=== PATIENT | female | born 1965 | race African-American/Black ===

== ENCOUNTER 2020-04-04 10:17 | Outpatient (CLI) | payer OTHER, SELFPAY ==
[2020-04-04 10:51] LABS: Hematocrit 38.9 % (37.0-47.0); Hemoglobin 13.2 g/dL (12.0-15.0); Mean Corpuscular HGB Conc 33.9 g/dl (32-36); Mean Corpuscular Hemoglobin 27.7 pg (26-34); Mean Corpuscular Volume 81.6 fl (80-100); Platelet Count Result 226 k/mm3 (150-375); Red Blood Count 4.77 M/mm3 (4.2-5.4); Red Cell Distribution Width 13.2 % (11.5-14.5); White Blood Count 5.9 K/mm3 (4.5-10.0)
[2020-04-04 10:53] LABS: Add Urine Microscopic? NO; Appearance Urine Clear (Clear); Bilirubin Urine Negative (Negative); Blood Urine Negative (Negative); Color Urine Colorless (Yellow); Glucose Urine UA Negative (Negative); Ketones Urine Negative (Negative); Leukocyte Esterase Ur Negative LEU/UL (NEGATIVE); Nitrate Urine Negative (Negative); Protein Urine Negative (Negative); Specific Grav Ur 1.006 (1.001-1.035); Urobilinogen Urine Negative mg/dL (<2.0)
[2020-04-04 10:59] LABS: Hemoglobin A1C 5.9 % (<5.7)
[2020-04-04 11:03] LABS: Alanine Aminotransferase 15 U/L (4-35); Albumin Level 4.6 g/dL (3.5-5.1); Alkaline Phosphatase 76 U/L (38-126); Aspartate Amino Transferase 21 U/L (14-36); Bilirubin,Total 0.4 mg/dL (0.2-1.3); Blood Urea Nitrogen 9 mg/dL (7-17); Calcium 9.5 mg/dL (8.4-10.2); Carbon Dioxide 27 mmol/L (22-30); Chloride 104 mmol/L (98-107); Cholesterol 217 mg/dL (0-200); Estimated Glomerular Filt Rate > 60; Glucose 107 mg/dL (65-105); HDL Direct 47 mg/dL; Potassium 3.8 mmol/L (3.4-5.0); Sodium 138 mmol/L (137-145); Triglycerides 88 mg/dL (<150)
[2020-04-04 11:14] LABS: LDL Cholesterol Direct 126 mg/dL
[2020-04-04 11:18] LABS: Erythrocyte Sedimentation Rate 24 mm/hr (0-20)
[2020-04-04 11:31] LABS: Creatinine Urine 21.7 mg/dL
[2020-04-04 11:34] LABS: MALB Creatinine Ratio 86.6 mg/g (0-30); Microalbumin Urine Random 18.8 mg/L (0-16.7)
[2020-04-04 11:45] LABS: Vitamin D 25 Hydroxy 31.8 ng/mL
== END 2020-04-04 10:18 | disposition home or self-care (01) ==
PROVIDERS: PCP Internal Medicine; Visit Provider Internal Medicine
DX: M19.90 Unspecified osteoarthritis, unspecified site (principal); J45.909 Unspecified asthma, uncomplicated; E11.9 Type 2 diabetes mellitus without complications; E78.00 Pure hypercholesterolemia, unspecified; I10 Essential (primary) hypertension; R06.00 Dyspnea, unspecified; E66.9 Obesity, unspecified
CPT/HCPCS: 36415; 80053; 80061; 81003; 82043; 82306; 82607; 83036; 84443; 85027; 85652

== ENCOUNTER 2020-05-18 11:46 | Observation (INO) | payer OTHER, SELFPAY ==
[2020-05-18] VITALS (13 sets, daily range): BP systolic 130–177; BP diastolic 64–110; PULSE 76–96; RESP 20–24; TEMP 35.8–36.3; O2SAT 98–100; BMI 33.3
--- NOTE | ~2020-05-18 | CT_ITS ---
EXAMINATION: CTA chest PE protocol DATE: 05/19/2020 09:15 INDICATION: Shortness of breath. High probability for pulmonary embolism and prior VQ scan. Elevated d-dimer. TECHNIQUE: Computed tomography (CT) pulmonary angiogram of the chest was performed with 100 mL Omnipa que-350 intravenous contrast. Additional 3D reconstructions utilizing coronal maximum intensity proje ction (MIP) were performed. Automated exposure control and iterative reconstruction technique were em ployed. The dose-length product was 407.61 mGy-cm. COMPARISON: None FINDINGS: Excellent contrast opacification of the pulmonary arteries. There is mild streak artifact from dense contrast in the superior vena cava and right atrium. Mild scattered respiratory motion artifact. Pulm onary embolism with complete occlusion of the right upper and middle lobar pulmonary arteries. Additi onal small pulmonary arterial filling defect in the superior segmental pulmonary artery of the left l ower lobe. Discoid atelectasis/scarring along the right minor fissure. There is some groundglass opac ity and mild reticulonodular opacities in the right upper lobe and inferior aspect of the right middl e lobe and lingula. There are additional scattered small pulmonary nodules including several <5 mm gr oundglass and solid nodules in the superior segment of the right upper lobe and a larger 6 mm nodule at the junction of the lingula and anterior segment of the left upper lobe. 6 mm triangle intrafissur al lymph node along the cephalad aspect of the left major fissure. No pleural effusion or pneumothora x. Heart size is normal. No leftward bowing of the ventricular septum to suggest right heart strain. No pericardial effusion. Thoracic aorta is normal in caliber with no dissection. Calcified right kathy r and mediastinal lymph nodes consistent with old granulomatous disease. Mild bilateral hilar lymphad enopathy which could be reactive. Mild thoracic spondylosis. IMPRESSION: 1. Pulmonary embolism with occlusion of the right upper and middle lobar pulmonary arteries and nonoc clusive thrombus in the superior segmental pulmonary artery of the left lower lobe. 2. Several small pulmonary nodules and scattered regions with reticulonodular opacities which could b e infectious/inflammatory in etiology or malignant including lymphangitic carcinomatosis. Recommend 3 month follow-up chest CT. 3. Mild bilateral hilar lymphadenopathy which similarly could be either reactive or metastatic. Reviewed, dictated and finalized at location A. IMPRESSION: 1. Pulmonary embolism with occlusion of the right upper and middle lobar pulmon jose arteries and nonocclusive thrombus in the superior segmental pulmonary sharon ry of the left lower lobe. 2. Several small pulmonary nodules and scattered regions with reticulonodular o pacities which could be infectious/inflammatory in etiology or malignant includ ing lymphangitic carcinomatosis. Recommend 3 month follow-up chest CT. 3. Mild bilateral hilar lymphadenopathy which similarly could be either reactiv e or metastatic.
--- NOTE | ~2020-05-18 | US_ITS ---
US venous doppler [facility] DATE: 05/19/2020 09:26 INDICATION: Elevated d-dimer TECHNIQUE: Real-time and color flow imaging and Doppler analysis of the veins of both lower extremiti es COMPARISON: 06/20/2006 venous duplex examination of the right lower extremity FINDINGS: The greater saphenous veins are patent. There is spontaneous and phasic flow and normal aug mentation and color flow signal and normal compression of the deep veins of both lower extremities. IMPRESSION: No evidence of deep venous thrombosis of the lower extremities Reviewed, dictated and finalized at [facility]. Reviewed, dictated and finalized at location B.
--- NOTE | ~2020-05-18 | XR_ITS ---
EXAMINATION: XR chest 2V DATE: 05/18/2020 12:25 INDICATION: Shortness of breath TECHNIQUE: PA and lateral views of the chest were obtained. COMPARISON: None FINDINGS: Mild perihilar and bibasilar opacities and bronchial wall thickening. No pleural effusion or pneumoth orax. Arch size is normal. Increased prominence of the kathy which could be related to enlargement of the central pulmonary arteries or lymphadenopathy. Visualized bones and soft tissues are unremarkable . IMPRESSION: 1. Mild perihilar and basilar opacities with bronchial wall thickening which could be related to mild pulmonary edema or bronchitis/pneumonia. 2. Prominent kathy which could be related to enlargement of the central pulmonary arteries in the sett ing of pulmonary arterial hypertension or lymphadenopathy likely reactive. Reviewed, dictated and finalized at location A. IMPRESSION: 1. Mild perihilar and basilar opacities with bronchial wall thickening which co uld be related to mild pulmonary edema or bronchitis/pneumonia. 2. Prominent kathy which could be related to enlargement of the central pulmonar y arteries in the setting of pulmonary arterial hypertension or lymphadenopathy likely reactive.
--- NOTE | ~2020-05-18 | NM_ITS ---
NM pulmonary perfusion DATE: 05/18/2020 16:11 INDICATION: Shortness of breath TECHNIQUE: Standard views following intravenous injection of 5.5 mCi 90 9M technetium MAA COMPARISON: 05/18/2020 chest FINDINGS: There are unmatched perfusion defects of the right upper lobe, left upper lobe and superior segment of the right lower lobe. There is high probability of pulmonary embolus. IMPRESSION: High probability of pulmonary embolism On 05/18/[address] Batista telephoned the report of high probability of pulmonary embolism to ER physician Dr. Bruno. Reviewed, dictated and finalized at [facility]. Reviewed, dictated and finalized at location A.
--- NOTE | 2020-05-18 11:56 | ECG_ITS ---
Measurements Intervals [place] Rate: 83 P: 61 ME: 172 QRS: 48 QRSD: 79 T: 76 QT: 349 QTc: 410 Interpretive Statements SINUS RHYTHM NORMAL ECG Electronically Signed On 05-18-2020 12:59:03 CDT by Parish Finney D.O.
[2020-05-18 12:10] LABS: Basophils Percent Auto 0.3 % (0.2-1.2); Eosinophils Absolute Auto 0.1 K/mm3 (0-0.3); Eosinophils Percent Auto 1.4 % (0-4.4); Hematocrit 36.6 % (37.0-47.0); Hemoglobin 12.2 g/dL (12.0-15.0); Immature Granulocyte Absolute 0.01 K/mm3 (0.00-0.031); Immature Granulocyte Percent A 0.2 % (0-0.5); Lymphocytes Absolute Auto 1.48 K/mm3 (0.9-3.2); Lymphocytes Percent Auto 23.2 % (18.3-44.2); Mean Corpuscular HGB Conc 33.3 g/dl (32-36); Mean Corpuscular Hemoglobin 27.9 pg (26-34); Mean Corpuscular Volume 83.6 fl (80-100); Mean Platelet Volume 11.3 fl (7.4-10.4); Monocytes Absolute Auto 0.4 K/mm3 (0.1-0.6); Monocytes Percent Auto 5.8 % (2.6-8.5); Neutrophils Absolute Auto 4.4 K/mm3 (1.3-6.7); Neutrophils Percent Auto 69.1 % (45.5-73.1); Platelet Count Result 216 k/mm3 (150-375); Red Blood Count 4.38 M/mm3 (4.2-5.4); Red Cell Distribution Width 13.6 % (11.5-14.5); White Blood Count 6.4 K/mm3 (4.5-10.0)
[2020-05-18 12:23] LABS: Blood Urea Nitrogen 13 mg/dL (7-17); Calcium 9.3 mg/dL (8.4-10.2); Carbon Dioxide 26 mmol/L (22-30); Chloride 106 mmol/L (98-107); Estimated CRCL calculation 74 ml/min; Estimated Glomerular Filt Rate > 60; Glucose 122 mg/dL (65-105); Potassium 4.1 mmol/L (3.4-5.0); Sodium 140 mmol/L (137-145)
[2020-05-18] MEDS: ALBUTEROL SULFATE NEB 2.5 MG/0.5 ML INH 5 MG INHALATION (12:38)
--- NOTE | 2020-05-18 13:30 | ED.GENADULT ---
HPI - General Adult General Chief complaint: Shortness of Breath/Dyspnea Stated complaint: SOB Time Seen by Provider: 05/18/20 12:34 History of Present Illness HPI narrative: Patient is a 54 y/o female complaining of mild shortness of breath for 2 days. She states that she has COPD. She used her Nebulizer, which did not help. She also has chest pain, cough with white phlegm. She has no fever or chills. Additionally, she developed vomiting after arrival in ED. Related Data Home Medications Medication Instructions Recorded Confirmed acyclovir 400 mg PO DAILY 05/18/20 05/18/20 gabapentin [Neurontin] 300 mg PO TID 05/18/20 05/18/20 hydrochlorothiazide 25 mg PO DAILY 05/18/20 05/18/20 hydrocodone-acetaminophen [[place]] 1 tablet PO Q8H PRN 05/18/20 05/18/20 losartan 25 mg PO DAILY 05/18/20 05/18/20 metformin 500 mg PO DAILY 05/18/20 05/18/20 metformin [Glucophage XR] 1,000 mg PO DAILY 05/18/20 05/18/20 zolpidem 10 mg PO HS PRN 05/18/20 05/18/20 Allergies Allergy/AdvReac Type Severity Reaction Status Date / Time iohexol Allergy Rash Verified 05/18/20 11:55 [From contrast - CT, X-RAY] levofloxacin [From Levaquin] Allergy Unknown Verified 05/18/20 11:55 Jfsfwma-Nwd-Hga Reductase Allergy Unknown Verified 05/18/20 11:55 Inhibitor tramadol Allergy Unknown Verified 05/18/20 11:55 Review of Systems Constitutional: Constitutional: Denies chills, Denies fever(s), Denies headache(s) and Denies weakness Eyes: Eyes: Denies blurry vision ENT: Denies headache(s) and Denies neck pain Cardiovascular: Cardiovascular: Reports chest pain and Reports dyspnea Respiratory: Respiratory: Denies cough and Reports dyspnea Gastrointestinal: Gastrointestinal: Denies abdominal pain, Denies diarrhea, Reports nausea and Reports vomiting Genitourinary: Genitourinary: Denies hematuria and Denies dysuria Musculoskeletal: Musculoskeletal: Denies back pain and Denies neck pain Neurologic: Denies headache(s) and Denies weakness [facility] Past Medical History Medical History (Updated 05/18/20 @ 19:42 by America Bruno MD) DM2 (diabetes mellitus, type 2) History of pulmonary embolism She was on Coumadin for 6 months. Hypertension Surgical History Surgical History (Updated 05/18/20 @ 17:22 by Florinda Alcazar NP) H/O: hysterectomy History of section, classical X3 Family History Family History Father Pulmonary embolism Hypertension Mother Pulmonary embolism Hypertension Social History Social History (Updated 05/18/20 @ 17:23 by Florinda Alcazar NP) Social History: The patient lives with her partner. She has had 3 children. She is disabled. She denies any marijuana or substance abuse. The patient is every day smoker. No alcohol use. She desires to have her partner as a durable power employment law attorney for healthcare. The patient desires to be a full code. Years smoked: 8 Smoking status: Current every day smoker Tobacco type: cigarettes Alcohol intake: current Drinks per week: 2 Substance use: never Gender identity (if verbalized by the patient): Female Spiritual care concerns: No Exam Const: General: no acute distress and well developed Orientation/consciousness: oriented to person, oriented to place, oriented to time and patient oriented x3 HENMT: Head: normocephalic Ears: external ears normal General nose exam: Normal external nose present Eyes: General: appearance normal, both eyes and all related structures Conjunctivae: conjunctivae normal Neck: Neck: normal visual inspection and full ROM Chest: Chest palpation & inspection: normal inspection of the chest and no tenderness Resp: Effort & Inspection: normal respiratory effort Auscultation: clear to auscultation bilaterally Cardio: Rate: regular rate Rhythm: regular rhythm GI: GI Palp: No abdominal tenderness and Yes Soft to palpation Skin: General skin exam: normal
[2020-05-18 13:59] LABS: NT Pro B Type Natriuretic Pept 56 PG/ML (5-100)
[2020-05-18] MEDS: ONDANSETRON INJ 4 MG/2 ML VIAL IV PUSH (14:16)
[2020-05-18] MEDS: KETOROLAC 30 MG/ML VIAL (*BKC) (14:16)
[2020-05-18 14:23] LABS: D Dimer 1.67 ug/mL (<0.48)
[2020-05-18 14:35] LABS: Troponin I < 0.012 ng/mL (0.000-0.034)
--- NOTE | 2020-05-18 16:33 | ADMGEN ---
This patient, Dolly Lucas, was admitted to Intensive Care Unit-3. Patient/family oriented to hospital policies and general routines including ID bracelet, bed and alarms, visiting hours, pain management, procedures, bathroom and other care routines, personal items, smoking policy, room service/diet, and visiting hours. Valuables list has been completed. Information on how to activate the Rapid Response Team has been discussed. Patient/Family are encouraged to report perceived risks to care and to ask questions if they do not understand what they are told or what they should do.
--- NOTE | 2020-05-18 17:12 | PM.IMHP ---
H&P: HPI History of Present Illness Chief complaint: shortness of breath,chest pain Narrative: Dolly Lucas is a 54 year old female who has been feeling ill for at least 3 days. The patient has been having a cough that is dry and nonproductive. She has a history of asthma and has inhalers at home. She is also diabetic and has high blood pressure. The patient denies any fever or chills. She has had a past history of having bilateral PEs and was on Coumadin for 6 months at 1 time. Both of her parents from having a PE. Initially the patient did not want to stay in the hospital when I saw her in the emergency room. We reviewed all of her results and I explained the importance of her staying Hospital. Her and her partner were agreeable to the patient staying here. Patient has an allergy to contrast dye. So V/Q scan was performed which was read as a high probability for PE. Patient's D-dimer is 1.67. The patient stated that she previously had bronchitis and was given a Z-Mack and she is on her last day of the Z-Mack. He has been wheezing and short of breath. She did not take anything other than what was prescribed to her for this condition. Blood pressure remains high today blood pressure reading of 130/110. Glucose was 122 today. Last A1c was noted to be 5.92 months ago. No CRP was obtained. Patient was tested for COVID-19. She was placed in isolation. As mild perihilar and basilar opacities with bronchial wall thickening which could be related to mild pulmonary edema or bronchitis/pneumonia. Prominent Torrie which could be related to enlargement of the central pulmonary arteries in the setting of pulmonary artery hypertension or lymphadenopathy likely reactive. Patient was given subcu Lovenox therapeutic dose x1 in the emergency room. She is also given a nebulizer treatment in the emergency room an Ativan x1. She was given Zofran for nausea. She was given ketorolac issues complaining of having some left rib pain with coughing and deep breath. Patient is admitted to ICU. Date of service 05/18/2020 Review of Systems Review of Systems: All systems reviewed & are unremarkable except as noted in HPI and below Constitutional: Constitutional: Reports as per HPI and Reports no additional constitutional complaints Eyes: Eyes: Reports as per HPI and Reports no additional eye complaints ENT: Reports system reviewed and no additional complaints, except as documented and Reports Normal hearing present Cardiovascular: Cardiovascular: Reports no additional cardiovascular complaints Respiratory: Respiratory: Reports no additional respiratory complaints and Reports no additional respiratory complaints Gastrointestinal: Gastrointestinal: Reports as per HPI and Reports no additional gastrointestinal complaints Musculoskeletal: Musculoskeletal: Reports no additional musculoskeletal complaints Integumentary/Breasts: Skin/Breast: Reports system reviewed and no additional complaints, except as docu and Reports as per HPI Neurologic: Reports system reviewed and no additional complaints, except as documented, Reports as per HPI and Reports Normal hearing present Psychiatric: Psychiatric: Reports no additional psychiatric complaints and Reports as per HPI Endocrine: Endocrine: Reports no additional endocrine complaints Hematologic/Lymphatic: Hematologic/Lymphatic: Reports no additional hematologic/lymphatic complaints Allergic/Immunologic: Allergic/Immunologic: Reports no additional allergic/immunologic complaints [facility] Past Medical History Medical History (Updated 05/18/20 @ 17:22 by Florinda Alcazar NP) DM2 (diabetes mellitus, type 2) History of pulmonary embolism She was on Coumadin for 6 months. Hypertension Surgical History Surgical History (Updated 05/18/20 @ 17:22 by Florinda Alcazar NP) H/O: hysterectomy History of section, classical X3 Family History Family History (Reviewed 05/18/20 @ 17:22 by Florinda Clemente
[2020-05-18] MEDS: ENOXAPARIN 80 MG/0.8 ML SYRINGE 88 MG SUB-Q (17:37)
[2020-05-18 17:41] LABS: INR 0.9; Prothrombin Time 12.2 Seconds (11.1-14.7)
[2020-05-18 17:43] LABS: Partial Thromboplastin Time 29.2 SECONDS (22.3-36.8)
[2020-05-18] MEDS: hydrALAZINE HCL 20 MG/ML VIAL 10 MG IV PUSH (17:46)
[2020-05-18 17:56] LABS: Troponin I < 0.012 ng/mL (0.000-0.034)
[2020-05-18 18:28] LABS: Glucose Point of Care 78 (65-105)
[2020-05-18] MEDS: ALBUTEROL SULFATE (*SP) INHALER 1 PUFF (20:13)
[2020-05-18] MEDS: predniSONE 40 MG, predniSONE 10 MG 50 MG PO (20:14)
[2020-05-18 20:29] LABS: Glucose Point of Care 82 (65-105)
[2020-05-18 20:59] LABS: Troponin I < 0.012 ng/mL (0.000-0.034)
[2020-05-18] MEDS: ZOLPIDEM TARTRATE 5 MG TABLET 10 MG PO (21:15)
[2020-05-19] VITALS (16 sets, daily range): BP systolic 118–162; BP diastolic 66–105; PULSE 76–98; RESP 12–27; TEMP 36–36.4; O2SAT 96–100
[2020-05-19] MEDS: hydrALAZINE HCL 20 MG/ML VIAL 10 MG IV PUSH (00:11)
[2020-05-19] MEDS: predniSONE 40 MG, predniSONE 10 MG 50 MG PO ×2 (01:32→08:12)
[2020-05-19] MEDS: ENOXAPARIN 100 MG/ML SYRINGE 85 MG SUB-Q ×2 (05:30→17:32)
[2020-05-19 06:03] LABS: Basophils Percent Auto 0.1 % (0.2-1.2); Hematocrit 38.3 % (37.0-47.0); Hemoglobin 12.5 g/dL (12.0-15.0); Immature Granulocyte Absolute 0.05 K/mm3 (0.00-0.031); Immature Granulocyte Percent A 0.5 % (0-0.5); Lymphocytes Absolute Auto 0.85 K/mm3 (0.9-3.2); Lymphocytes Percent Auto 8.8 % (18.3-44.2); Mean Corpuscular HGB Conc 32.6 g/dl (32-36); Mean Corpuscular Hemoglobin 27.3 pg (26-34); Mean Corpuscular Volume 83.6 fl (80-100); Mean Platelet Volume 11.6 fl (7.4-10.4); Monocytes Absolute Auto 0.1 K/mm3 (0.1-0.6); Monocytes Percent Auto 0.5 % (2.6-8.5); Neutrophils Absolute Auto 8.7 K/mm3 (1.3-6.7); Neutrophils Percent Auto 90.1 % (45.5-73.1); Platelet Count Result 233 k/mm3 (150-375); Red Blood Count 4.58 M/mm3 (4.2-5.4); Red Cell Distribution Width 13.2 % (11.5-14.5); White Blood Count 9.7 K/mm3 (4.5-10.0)
[2020-05-19 06:25] LABS: Lactic Acid 2.2 mmol/L (0.7-2.1)
[2020-05-19 06:26] LABS: Alanine Aminotransferase 20 U/L (4-35); Albumin Level 4.3 g/dL (3.5-5.1); Alkaline Phosphatase 76 U/L (38-126); Aspartate Amino Transferase 21 U/L (14-36); Bilirubin,Total 0.2 mg/dL (0.2-1.3); Blood Urea Nitrogen 20 mg/dL (7-17); Calcium 9.5 mg/dL (8.4-10.2); Carbon Dioxide 23 mmol/L (22-30); Chloride 106 mmol/L (98-107); Estimated CRCL calculation 97 ml/min; Estimated Glomerular Filt Rate > 60; Glucose 173 mg/dL (65-105); Magnesium 1.9 mg/dL (1.6-2.3); Potassium 4.3 mmol/L (3.4-5.0); Sodium 137 mmol/L (137-145)
[2020-05-19 07:46] LABS: Thyroid Stimulating Hormone Reflex 0.978 uIU/mL (0.465-4.68)
[2020-05-19] MEDS: PHARMACIST COMMUNICATION ORDER 1 EACH XX (08:02)
[2020-05-19 08:34] LABS: Glucose Point of Care 155 (65-105)
[2020-05-19] MEDS: ACYCLOVIR 400 MG TABLET PO (09:46)
[2020-05-19] MEDS: GABAPENTIN 300 MG CAPSULE PO ×3 (09:46→17:30)
[2020-05-19] MEDS: LOSARTAN POTASSIUM 25 MG TABLET PO (09:46)
--- NOTE | 2020-05-19 09:51 | PC.NURSE ---
Patient to CT and US scans. Returned to bedside without issue. No c/o nausea.
[2020-05-19 12:07] LABS: Glucose Point of Care 195 (65-105)
[2020-05-19] MEDS: ALBUTEROL SULFATE (*SP) AEROSOL 1 PUFF 2 PUFF INHALATION ×3 (13:43→19:26)
[2020-05-19] MEDS: ALPRAZolam 0.25 MG TABLET PO (15:35)
--- NOTE | 2020-05-19 15:43 | PC.NURSE ---
Patient anxious, Dr. Cruz notified, Xanax PO x1 given. Patient updated on plan of care. Dr. Tucker to bedside at 1600, COVID results ~2000 per lab.
--- NOTE | 2020-05-19 16:04 | PM.CNPUL ---
Assessment and Plan Assessment and plan (1) Pulmonary embolism: Qualifiers: Acute cor pulmonale presence: without acute cor pulmonale Chronicity: unspecified Pulmonary embolism type: unspecified Qualified Code(s): I26.99 - Other pulmonary embolism without acute cor pulmonale Code(s): I26.99 - Other pulmonary embolism without acute cor pulmonale Status: Acute Assessment and Plan: She has recurrent PE; initial episode was 1988, then 2007, and now 2019. She has not had provoking factors, no surgery, malignancy, although in general she is not very active. Her asthma has not been under good control, so she is short of breath often, which causes her to be less active. She is on Lovenox full dose 85 mg Q 12 hours. PLAN: Check echo to evaluate R heart function, look for pulmonary hypertension. Apixaban 10 mg bid x 7 days then 5 mg bid thereafter would be a better option compared to coumadin which she used in 2007. Insurance coverage will be critically important. (2) Shortness of breath: Code(s): R06.02 - Shortness of breath Status: Acute Assessment and Plan: Improved since she is being treated for PE. (3) Unspecified asthma: Code(s): J45.909 - Unspecified asthma, uncomplicated Status: Acute Assessment and Plan: She is not well controlled, uses Dulera 3-4 times a week, and a rescue inhaler several times a week. (4) Multiple pulmonary nodules determined by computed tomography of lung: Code(s): R91.8 - Other nonspecific abnormal finding of lung field Status: Acute Assessment and Plan: She has several pulmonary nodules which will require additional monitoring, with a repeat CT in 3 months. (5) Tobacco abuse counseling: Code(s): Z71.6 - Tobacco abuse counseling Status: Acute Assessment and Plan: She is smoking 6-7 cigarettes a day, is not craving a cigarette yet. We talked about the importance of stopping smoking. History of Present Illness History of Present Illness Consult date: 05/20/20 Requesting physician: Joselin Cruz MD Chief complaint: shortness of breath,chest pain Narrative: ICU Bed 3 NEW: Dr Cruz consulted me to see Dolly Lucas for bilateral PE. She is a 54 yo female with HTN, DM and asthma who has been sheltering in place during the pandemic, does not leave her house often, always wears a mask and keeps 6 feet apart from others. She developed 3 days of nonproductive coughing with pain in the anterior chest that kept her from taking a deep breath. She took the remainder of a Z-pack, Mucinex, Zyrtec, Benadryl, and increased the use of her albuterol inhaler as well as nebulized albuterol every 4 hours without any improvement in symptoms. She has not had a sore throat, fever, sputum, chills, GI symptoms. She denies leg swelling or pain. she came to the hospital, had a CT chest showing small bilateral PE in the arteries to the RLL and RML and the superior segment of the LLL. She was started on Lovenox 85 mg subQ Q 12 hours. She had PE in 2007, [facility], was on coumadin for 2 years total. She says that there was no provoking factor. Now that she has recurrence of bilateral PE, so she will require lifelong anticoagulation. She also recall having a PE in 1988 before she was with her son, and was treated at [facility]. She has been told that she had sarcoid in the past, but her sarcoid did not cause any significant symptoms. She has had asthma since childhood. She is using Dulera one puff about 3 times a week and albuterol a few times a week. She is not well controlled on this, as she has in
--- NOTE | 2020-05-19 17:19 | PM.IMPN ---
Progress Note: A&P Assessment and Plan (1) Suspected COVID-19 virus infection: Code(s): Z20.828 - Contact with and (suspected) exposure to other viral communicable diseases Status: Acute Assessment and Plan: The patient is on her last dose of azithromycin and I added Rocephin. Will get blood and sputum cultures. Patient is on isolation for possible COVID. I did order an inhaler. The patient tells me that she has been to nebulizer treatments at home. However the patient is not in a negative pressure room at this time. Will continue with inhalers. Patient is on room air at this time. She is afebrile. 05/19/20 17:19 Patient is a 54 year female with past medical history pulmonary emboli as well in her family patient presented emergency department with a complaint of cough shortness of breath patient was taking her home medication without any relief and presented emergency department for further evaluation, patient was found to elevated D-dimer, CT scan of the chest showed bilateral pulmonary emboli currently treated with Lovenox, and there was a concern the patient may have a malignancy and will need further evaluation with repeat CT scan of the chest, patient is seen by picker tender and further recommendation to follow and there was concern the patient may may have COVID-19 and being tested, patient was seen but not examine, is states he is feeling better since she arrived not a short of breath denies any fever or chills, (2) Elevated d-dimer: Code(s): R79.89 - Other specified abnormal findings of blood chemistry Status: Acute Assessment and Plan: V/Q scan shows high probability for pulmonary emboli. The patient has had pulmonary embolus in the past. Both parents have had pulmonary embolisms in the past as well. The patient has had a PE in the past and was on Coumadin for a brief period time approximately 6 months. I did premedicate the patient for CT a for tomorrow. (3) Hypertension: Code(s): I10 - Essential (primary) hypertension Status: Acute Assessment and Plan: Hold hydrochlorothiazide as the patient has been vomiting. Continue with losartan and since the patient's blood pressure is remain elevated I do some p.r.n. hydralazine. (4) DM2 (diabetes mellitus, type 2): Code(s): E11.9 - Type 2 diabetes mellitus without complications Status: Chronic Assessment and Plan: Hold metformin. Continue with Accu-Cheks AC and HS with sliding scale insulin. Check A1c. Subjective Date/time seen: 05/19/20 17:19 Patient is a 54 year female with past medical history pulmonary emboli as well in her family patient presented emergency department with a complaint of cough shortness of breath patient was taking her home medication without any relief and presented emergency department for further evaluation, patient was found to elevated D-dimer, CT scan of the chest showed bilateral pulmonary emboli currently treated with Lovenox, and there was a concern the patient may have a malignancy and will need further evaluation with repeat CT scan of the chest, patient is seen by picker tender and further recommendation to follow and there was concern the patient may may have COVID-19 and being tested, patient was seen but not examine, is states he is feeling better since she arrived not a short of breath denies any fever or chills, Review of Systems Review of Systems: All systems reviewed & are unremarkable except as noted in HPI and below Exam Narrative: Exam Narrative: Patient was seen but not examine I spoke to her on telephone will watch in outside glass door, temperature is 97.6? pulse is 78 respiratory is 12 pulse ox is 100% on room air her blood pressure 162/86 Const: General: comfortable and no acute distress HENMT: General nose exam: Normal nares present Eyes: Sclera: sclerae normal Neck: Other: No retraction Resp: Effort & Inspection: normal respiratory effort GI: Other:
[2020-05-19 18:31] LABS: Glucose Point of Care 155 (65-105)
[2020-05-19 20:02] LABS: SARS-CoV-2 RNA PCR Negative
[2020-05-19 20:38] LABS: Glucose Point of Care 153 (65-105)
[2020-05-19] MEDS: ZOLPIDEM TARTRATE 5 MG TABLET 10 MG PO (22:10)
[2020-05-20] VITALS (14 sets, daily range): BP systolic 144–157; BP diastolic 56–90; PULSE 72–93; RESP 16–24; TEMP 36.1–36.7; O2SAT 95–100
[2020-05-20] MEDS: ALBUTEROL SULFATE NEB 2.5 MG/0.5 ML INH INHALATION ×2 (00:39→12:35)
[2020-05-20] MEDS: ENOXAPARIN 100 MG/ML SYRINGE 85 MG SUB-Q ×2 (05:42→18:31)
--- NOTE | 2020-05-20 08:37 | ECHO_ITS ---
Patient Info Name: Dolly Lucas Age: 54 years : 1965 Gender: Female Ht: 63 in Wt: 196 lbs BSA: 2.03 m2 HR: 76 bpm BP: 147 / 82 mmHg Heart Rhythm: Sinus Rhythm Technical Quality: Good Exam Date: 05/20/2020 8:24 AM Exam Location: [facility] Patient Status: Outpatient Admit Date: 05/18/2020 Staff Ordering Physician: Jerilyn Tucker MD Burrer Operator: Mahesh Martinez RDCS, RT Attending Provider: Parveen Lux MD Referring Physician: Garrett QUINTANILLA; Exam Type: CA echo doppler color flow Study Info Indications R06.02 - Shortness of breath Complete two-dimensional, color flow and Doppler transthoracic echocardiogram is performed. Summary 1. Left ventricular systolic function is normal, estimated at 60-65%. 2. There is mildly increased left ventricular wall thickness. 3. The left ventricular diastolic function is grade II diastolic dysfunction. 4. There is no aortic valve stenosis. 5. There is mild mitral valve regurgitation. 6. No pulmonary hypertension, estimated pulmonary arterial systolic pressure is 33 mmHg. 7. There is trace tricuspid valve regurgitation. Left Ventricle Left ventricular chamber dimension is normal. Left ventricular systolic function is normal, estimated at 60-65%. There is mildly increased left ventricular wall thickness. The left ventricular diastolic function is grade II diastolic dysfunction. Global longitudinal strain is mildly elevated at -16 %. Right Ventricle Right ventricular chamber dimension is normal. Right ventricular systolic function is normal. Left Atria Left atrial chamber dimension is normal. Right Atria Right atrial chamber dimension is normal. Aortic Valve The aortic valve is not well visualized. There is no aortic valve stenosis. There is trace aortic valve regurgitation. Pulmonic Valve The pulmonic valve is not well visualized. There is trace pulmonic regurgitation. Mitral Valve The mitral valve has normal leaflets. There is mild mitral valve regurgitation. The mitral valve annulus is mildly calcified. Tricuspid Valve The tricuspid valve leaflets are normal. There is trace tricuspid valve regurgitation. No pulmonary hypertension, estimated pulmonary arterial systolic pressure is 33 mmHg. Pericardium/Pleural The pericardium appears normal. There is no pericardial effusion. Inferior Vena Cava Normal inferior vena cava with >50% collapse upon inspiration consistent with normal right atrial pressure, 5 mmHg. Aorta The aortic root size at the sinus of Valsalva is normal. Left Ventricular Outflow Tract Name Value Normal LVOT 2D LVOT Diameter 1.9 cm LVOT Doppler LVOT Peak Gradient 4 mmHg LVOT Mean Gradient 2 mmHg LVOT VTI 22 cm LVOT VTI/AV VTI Ratio 0.8 LVOT Stroke Volume 63 ml LVOT CO 4.8 l/min LVOT CI 2.4 l/min/m2 Mitral Valve
[2020-05-20 09:17] LABS: Glucose Point of Care 91 (65-105)
[2020-05-20] MEDS: ACYCLOVIR 400 MG TABLET PO (09:53)
[2020-05-20] MEDS: GABAPENTIN 300 MG CAPSULE PO ×3 (09:54→18:31)
[2020-05-20] MEDS: LOSARTAN POTASSIUM 25 MG TABLET PO (09:54)
[2020-05-20 10:26] LABS: Hematocrit 35.6 % (37.0-47.0); Hemoglobin 12.2 g/dL (12.0-15.0); Mean Corpuscular HGB Conc 34.3 g/dl (32-36); Mean Corpuscular Hemoglobin 28.2 pg (26-34); Mean Corpuscular Volume 82.4 fl (80-100); Mean Platelet Volume 11.7 fl (7.4-10.4); Platelet Count Result 232 k/mm3 (150-375); Red Blood Count 4.32 M/mm3 (4.2-5.4); Red Cell Distribution Width 13.5 % (11.5-14.5); White Blood Count 9.9 K/mm3 (4.5-10.0)
[2020-05-20 10:42] LABS: Blood Urea Nitrogen 19 mg/dL (7-17); Carbon Dioxide 24 mmol/L (22-30); Chloride 105 mmol/L (98-107); Estimated CRCL calculation 75 ml/min; Estimated Glomerular Filt Rate > 60; Glucose 144 mg/dL (65-105); Potassium 3.8 mmol/L (3.4-5.0); Sodium 139 mmol/L (137-145)
[2020-05-20 12:26] LABS: Glucose Point of Care 98 (65-105)
--- NOTE | 2020-05-20 15:17 | PC.NURSE ---
This patient, Dolly Lucas, was transferred to [facility] on 05/20/20 at 1515. Personal belongings sent with patient. Belongings list checked. Report given to Magaly GRANDA. Appropriate documentation sent with patient.
[2020-05-20 16:21] LABS: Glucose Point of Care 109 (65-105)
--- NOTE | 2020-05-20 17:46 | PM.PNPUL ---
Progress Note: A&P Assessment and Plan (1) Pulmonary embolism: Qualifiers: Acute cor pulmonale presence: without acute cor pulmonale Chronicity: unspecified Pulmonary embolism type: unspecified Qualified Code(s): I26.99 - Other pulmonary embolism without acute cor pulmonale Code(s): I26.99 - Other pulmonary embolism without acute cor pulmonale Status: Acute Assessment and Plan: She has recurrent PE; initial episode was 1988, then 2007, and now 2019. She has not had provoking factors, no surgery, malignancy, although in general she is not very active. Her asthma has not been under good control, so she is short of breath often, which causes her to be less active. She is on Lovenox full dose 85 mg Q 12 hours. Echo showed no pulmonary hypertension, good news. PLAN: Start apixaban 10 mg bid x 7 days then 5 mg bid thereafter. She will get another SubQ lovenox dose before discharge to give her time to get the apixaban starting tomorrow. (2) Shortness of breath: Code(s): R06.02 - Shortness of breath Status: Acute Assessment and Plan: Improved since she is being treated for PE. (3) Unspecified asthma: Code(s): J45.909 - Unspecified asthma, uncomplicated Status: Acute Assessment and Plan: She is not well controlled, uses Dulera 3-4 times a week, and a rescue inhaler several times a week. She needs to use this as instructed 2 puffs twice a day at least 10 hours apart, rinse & spit after use. This should decreased the amount of rescue medicaton she needs. I will see her in the office in 1-2 weeks and we will plan to get PFTs, continue asthma management. (4) Tobacco abuse counseling: Code(s): Z71.6 - Tobacco abuse counseling Status: Acute Assessment and Plan: You are not smoking excessively, however smoking s pro-clotting, so stopping smoking makes sense to decreased infallamtion in your system. Tobacco and other substances such as marijuana are bad for your breathing. Stopping smoking is the most important choice you can make for your health. There is a financial cost, as well as the impact on your health, health of family members and your pets. We recommend picking a quit date, eliminating tobacco from your house, finding alternative activities when you have a craving, and knowing that a craving lasts 5-6 minutes. Nicotine replacement therapy can be helpful, including patches, lozenges, gum and inhalers. 6-662-KDUQOZA is a toll free number with a live person who will talk with you about stopping smoking. (5) Multiple pulmonary nodules determined by computed tomography of lung: Code(s): R91.8 - Other nonspecific abnormal finding of lung field Status: Acute Assessment and Plan: She needs a follow up CT in 3 months. I will order this from the office after she has a visit. Subjective Date/time seen: 05/20/20 17:46 Dolly Lucas is a 54 yo female seen in follow up for PE, asthma, tobacco use. Her daughter Jillian is at the bedisde. She feels much better, is not short of breath. She had the echo today, and the last dose of enoxaparin 85 mg subcutaneously was 5:42 this am. Date of Service: 05/20/20 Summary 1. Left ventricular systolic function is normal, estimated at 60-65%. 2. There is mildly increased left ventricular wall thickness. 3. The left ventricular diastolic function is grade II diastolic dysfunction. 4. There is no aortic valve stenosis. 5. There is mild mitral valve regurgitation. 6. No pulmonary hypertension, estimated pulmonary arterial systolic pressure is 33 mmHg. 7. There is trace t
--- NOTE | 2020-05-20 17:59 | PM.DS ---
DS: Admitting Diagnosis Admitting Diagnosis Admitting Diagnosis: Contact with and (suspected) exposure to other viral communicable diseases DS: Discharge Diagnosis Discharge Diagnosis (1) Suspected COVID-19 virus infection: Code(s): Z20.828 - Contact with and (suspected) exposure to other viral communicable diseases Status: Acute Assessment and Plan: The patient is on her last dose of azithromycin and I added Rocephin. Will get blood and sputum cultures. Patient is on isolation for possible COVID. I did order an inhaler. The patient tells me that she has been to nebulizer treatments at home. However the patient is not in a negative pressure room at this time. Will continue with inhalers. Patient is on room air at this time. She is afebrile. 05/19/20 17:19 Patient is a 54 year female with past medical history pulmonary emboli as well in her family patient presented emergency department with a complaint of cough shortness of breath patient was taking her home medication without any relief and presented emergency department for further evaluation, patient was found to elevated D-dimer, CT scan of the chest showed bilateral pulmonary emboli currently treated with Lovenox, and there was a concern the patient may have a malignancy and will need further evaluation with repeat CT scan of the chest, patient is seen by splitting machine operator helper and further recommendation to follow and there was concern the patient may may have COVID-19 and being tested, patient was seen but not examine, is states he is feeling better since she arrived not a short of breath denies any fever or chills, (2) Elevated d-dimer: Code(s): R79.89 - Other specified abnormal findings of blood chemistry Status: Acute Assessment and Plan: V/Q scan shows high probability for pulmonary emboli. The patient has had pulmonary embolus in the past. Both parents have had pulmonary embolisms in the past as well. The patient has had a PE in the past and was on Coumadin for a brief period time approximately 6 months. I did premedicate the patient for CT a for tomorrow. (3) Hypertension: Code(s): I10 - Essential (primary) hypertension Status: Acute Assessment and Plan: Hold hydrochlorothiazide as the patient has been vomiting. Continue with losartan and since the patient's blood pressure is remain elevated I do some p.r.n. hydralazine. (4) DM2 (diabetes mellitus, type 2): Code(s): E11.9 - Type 2 diabetes mellitus without complications Status: Chronic Assessment and Plan: Hold metformin. Continue with Accu-Cheks AC and HS with sliding scale insulin. Check A1c. DS: Summary Hospital Course Reason for hospitalization: Narrative: Dolly Lucas is a 54 year old female who has been feeling ill for at least 3 days. The patient has been having a cough that is dry and nonproductive. She has a history of asthma and has inhalers at home. She is also diabetic and has high blood pressure. The patient denies any fever or chills. She has had a past history of having bilateral PEs and was on Coumadin for 6 months at 1 time. Both of her parents from having a PE. Initially the patient did not want to stay in the hospital when I saw her in the emergency room. We reviewed all of her results and I explained the importance of her staying Hospital. Her and her partner were agreeable to the patient staying here. Patient has an allergy to contrast dye. So V/Q scan was performed which was read as a high probability for PE. Patient's D-dimer is 1.67. The patient stated that she previously had bronchitis and was given a Z-Mack and she is on her last day of the Z-Mack. He has been wheezing and short of breath. She did not take anything other than what was prescribed to her for this condition. Blood pressure remains high today blood pressure reading of 130/110. Glucose was 122 today. Last A1c was noted to be 5.92 months ago. No CRP wa
== END 2020-05-20 19:24 | disposition home or self-care (01) ==
LOC: ANHED 15:05 → ANHICU 17:07 → ANH2MED 05-20 17:59 → ANHICU 05-21 13:20
PROVIDERS: Emergency Medicine; Nurse Practitioner; Admitting Provider Internal Medicine; Emergency Provider Emergency Medicine; PCP Internal Medicine; Visit Provider Family Medicine
DX: I26.99 Other pulmonary embolism without acute cor pulmonale (principal); R07.9 Chest pain, unspecified; R06.02 Shortness of breath; R05 Cough; R91.8 Other nonspecific abnormal finding of lung field; J45.909 Unspecified asthma, uncomplicated; I34.0 Nonrheumatic mitral (valve) insufficiency; E11.9 Type 2 diabetes mellitus without complications; I10 Essential (primary) hypertension; Z79.84 Long term (current) use of oral hypoglycemic drugs; F17.210 Nicotine dependence, cigarettes, uncomplicated
CPT/HCPCS: 36415; 71046; 71275; 78580; 80048; 80053; 83605; 83735; 83880; 84443; 84484; 85025; 85027; 85380; 85610; 85730; 86140; 87635; 93005; 93306; 93970; 94640; 96365; 96367; 96372; 96374; 96375; 99285; A9270; A9540; C9803; G0378; G0379; J0360; J0456; J0696; J1650; J1885; J2060; J2405; J7512; Q9967; U0003

== ENCOUNTER 2020-07-01 14:06 | Outpatient (CLI) | payer OTHER, SELFPAY ==
--- NOTE | 2020-07-02 14:34 | WPDPFTINT ---
PFT Interpretation PFT Interpretation: DOS: 07/01/2020 REQUESTING: Efrain Lino REASON FOR TESTING: Asthma PULMONARY FUNCTION TESTS Results are reliable and reproducible. Spirometry: FEV1 70%, 1.63 L mildly reduced. FVC 68%, mildly reduced. FEV1% is normal, 77%. ERG16-66% is 53% significantly reduced. No change with bronchodilator. Lung volumes: TLC 78% mild restriction. RV/TLC increased 43%. This is consistent with air trapping. Normal airway resistance. Diffusion: DLCO 67% mildly reduced Flow volume loop: Scooping of the expiratory limb IMPRESSION: Mild obstructive ventilatory impairment, more pronounced in the small airways, no change with bronchodilator, air trapping and mild diffusion impairment. This is a mixed pattern and not completely consistent with asthma. Asthma typically shows improvement with administration of bronchodilator. Asthma also exhibits increased diffusion. This test may represent asthma COPD overlap as the patient does smoke and this may account for the decreased diffusion. Clinical correlation is recommended. Jerilyn Tucker MD
== END 2020-07-01 14:07 | disposition home or self-care (01) ==
PROVIDERS: PCP Internal Medicine; Visit Provider Internal Medicine Critical Care Medicine
DX: J45.909 Unspecified asthma, uncomplicated (principal); R94.2 Abnormal results of pulmonary function studies
CPT/HCPCS: 94060; 94726; 94729

== ENCOUNTER 2020-09-27 09:42 | Emergency (ER) | payer OTHER, SELFPAY ==
[2020-09-27] VITALS (22 sets, daily range): BP systolic 125–160; BP diastolic 55–109; PULSE 68–109; RESP 15–27; TEMP 36.4; O2SAT 94–100
--- NOTE | ~2020-09-27 | XR_ITS ---
EXAMINATION: XR chest 2V DATE: 09/27/2020 10:05 INDICATION: Midsternal chest pain TECHNIQUE: AP and lateral views of the chest are obtained. COMPARISON: 05/18/2020 FINDINGS: The lungs are free of acute opacities. There is no pleural effusion or pneumothorax. The ca rdiomediastinal silhouette is normal. There is mild thoracic spondylosis. IMPRESSION: 1. No acute cardiopulmonary abnormality. Reviewed, dictated and finalized at location A. RO[employer] INSPECT[employer]
--- NOTE | 2020-09-27 09:51 | ECG_ITS ---
Measurements Intervals [place] Rate: 102 P: 269 IN: 128 QRS: 53 QRSD: 78 T: 153 QT: 346 QTc: 452 Interpretive Statements ECTOPIC ATRIAL TACHYCARDIA NONSPECIFIC T-WAVE ABNORMALITY- DIFFUSE LEADS ABNORMAL ECG Electronically Signed On 09-27-2020 12:35:03 [employer]UR[employer]SULTANT by Parish Finney D.O.
[2020-09-27] MEDS: ASPIRIN 81 MG CHEWABLE TABLET 324 MG PO (09:57)
[2020-09-27 10:13] LABS: Anion Gap 8 mmol/L (8-16); Blood Urea Nitrogen 19 mg/dL (7-17); Carbon Dioxide 30 mmol/L (22-30); Chloride 98 mmol/L (98-107); Estimated CRCL calculation 85 ml/min; Estimated Glomerular Filt Rate > 60; Glucose 111 mg/dL (65-105); Potassium 3.9 mmol/L (3.4-5.0); Sodium 136 mmol/L (137-145)
[2020-09-27 10:21] LABS: Prothrombin Time 14.2 Seconds (11.1-14.7)
[2020-09-27 10:22] LABS: Partial Thromboplastin Time 34.9 SECONDS (22.3-36.8)
[2020-09-27 10:25] LABS: Troponin I 0.015 ng/mL (0.000-0.034)
[2020-09-27 10:37] LABS: Basophils Percent Auto 0.4 % (0.2-1.2); Eosinophils Absolute Auto 0.1 K/mm3 (0-0.3); Eosinophils Percent Auto 1.3 % (0-4.4); Hematocrit 40.8 % (37.0-47.0); Hemoglobin 14.1 g/dL (12.0-15.0); Immature Granulocyte Absolute 0.01 K/mm3 (0.00-0.031); Immature Granulocyte Percent A 0.1 % (0-0.5); Lymphocytes Absolute Auto 2.56 K/mm3 (0.9-3.2); Lymphocytes Percent Auto 32.4 % (18.3-44.2); Mean Corpuscular HGB Conc 34.6 g/dl (32-36); Mean Corpuscular Hemoglobin 27.8 pg (26-34); Mean Corpuscular Volume 80.3 fl (80-100); Mean Platelet Volume 11.4 fl (7.4-10.4); Monocytes Absolute Auto 0.4 K/mm3 (0.1-0.6); Monocytes Percent Auto 4.9 % (2.6-8.5); Neutrophils Absolute Auto 4.8 K/mm3 (1.3-6.7); Neutrophils Percent Auto 60.9 % (45.5-73.1); Platelet Count Result 259 k/mm3 (150-375); Red Blood Count 5.08 M/mm3 (4.2-5.4); Red Cell Distribution Width 13.1 % (11.5-14.5); White Blood Count 7.9 K/mm3 (4.5-10.0)
[2020-09-27 10:48] LABS: Platelet Estimate Adequate (Adequate); Stomatocytes 1+ (NORMAL)
--- NOTE | 2020-09-27 10:54 | ED.CHESTPAIN ---
HPI - Chest Pain General Chief Complaint: Chest Pain Stated Complaint: chest pains Time Seen by Provider: 09/27/20 10:12 Source: patient Mode of arrival: ambulatory Limitations: no limitations History of Present Illness HPI narrative: Patient is a 54-year-old female who presents with midsternal left-sided chest discomfort that has been present now for 3 days had intermittent pains 3 to 4/day lasting minutes that resolved with pain that has become more constant today worse with leaning forward patient denies recent illness has had slight cough but denies other URI symptoms has taken hydrocodone with no improvement. Denies similar occurrence in the past. Presents in no distress and does not appear uncomfortable. Related Data Home Medications Medication Instructions Recorded Confirmed acyclovir 400 mg PO DAILY 05/18/20 05/18/20 gabapentin [Neurontin] 300 mg PO TID 05/18/20 05/18/20 hydrochlorothiazide 25 mg PO DAILY 05/18/20 05/18/20 hydrocodone-acetaminophen [[place]] 1 tablet PO Q8H PRN 05/18/20 05/18/20 losartan 25 mg PO DAILY 05/18/20 05/18/20 metformin 500 mg PO DAILY 05/18/20 05/18/20 metformin [Glucophage XR] 1,000 mg PO DAILY 05/18/20 05/18/20 zolpidem 10 mg PO HS PRN 05/18/20 05/18/20 bupropion HCl 150 mg tablet,12 hr 150 mg PO DAILY 06/06/20 sustained-release lorazepam 0.5 mg tablet 0.5 mg PO DAILY PRN 06/06/20 baclofen 10 mg tablet 10 mg PO BID tablet 09/09/20 Allergies Allergy/AdvReac Type Severity Reaction Status Date / Time iohexol Allergy Anaphylaxis Verified 09/27/20 09:52 [From contrast - CT, X-RAY] levofloxacin [From Levaquin] Allergy Anaphylaxis Verified 09/27/20 09:52 Nrxtyzd-Dtk-Kco Reductase Allergy Anaphylaxis Verified 09/27/20 09:52 Inhibitor tramadol Allergy Anaphylaxis Verified 09/27/20 09:52 Review of Systems Review of Systems: All systems reviewed & are unremarkable except as noted in HPI and below PMFSH Past Medical History Medical History Asthma DM2 (diabetes mellitus, type 2) History of pulmonary embolism She was on Coumadin for 6 months. Hypertension Shortness of breath Tobacco abuse counseling Unspecified asthma Surgical History Surgical History H/O: hysterectomy History of section, classical X3 Family History Family History Father Hypertension Acute pulmonary edema Mother Hypertension Social History Social History Social History: The patient lives with her partner. She has had 3 children. She is disabled. She denies any marijuana or substance abuse. The patient is every day smoker. No alcohol use. She desires to have her partner as a durable power attorney law clerk for healthcare. The patient desires to be a full code. Years smoked: 8 Smoking status: Current every day smoker Tobacco type: cigarettes Alcohol intake: current Drinks per week: 2 Substance use: never Gender identity (if verbalized by the patient): Female Spiritual care concerns: No Exam Narrative: Exam Narrative: GENERAL: Well-appearing, well-nourished, and in no acute distress. HEAD: Normocephalic, atraumatic. EYES: PERRLA and EOMI. ENT: Nares clear, no rhinorrhea or epistaxis. Mucous membranes moist. CHEST: Clear to auscultation. No respiratory distress. No wheezes rales or rhonchi HEART: Regular rate and rhythm. No murmur heard. Normal peripheral pulses. ABDOMEN: Soft, nontender, nondistended EXTREMITIES: Normal range of motion. No edema. SKIN: Warm, dry, no rash. NEURO: No focal deficits. Alert and oriented x3. PSYCH: Normal mood and affect. Course Course Emergency Course: Patient in the room at this time aware of case findings treatment plan and diagnosis has been chest pain-free resting comfortably in the ER feels comfor
[2020-09-27 11:02] LABS: Alanine Aminotransferase 25 U/L (4-35); Albumin Level 4.7 g/dL (3.5-5.1); Alkaline Phosphatase 91 U/L (38-126); Aspartate Amino Transferase 37 U/L (14-36); Bilirubin,Total 1.4 mg/dL (0.2-1.3); Lipase 60 U/L (23-300)
[2020-09-27] MEDS: NITROGLYCERIN SL 0.4 MG TABLET SUBLINGUAL (11:07)
--- NOTE | 2020-09-27 11:24 | PC.NURSE ---
Pt CP was 5/10 before I gave the nitro. 5 min after I gave it pt said it was a twinge and barely a 1. I held other doses and made ER provider aware.
[2020-09-27 11:36] LABS: NT Pro B Type Natriuretic Pept 23 PG/ML (5-100)
--- NOTE | 2020-09-27 12:55 | PC.NURSE ---
Pt was asking for an update, museum technician made EDP aware
[2020-09-27 14:14] LABS: Troponin I < 0.012 ng/mL (0.000-0.034)
== END 2020-09-27 14:59 | disposition home or self-care (01) ==
PROVIDERS: Emergency Medicine Emergency Medical Services; Emergency Provider Emergency Medicine; PCP Internal Medicine
DX: R07.2 Precordial pain (principal); Z79.84 Long term (current) use of oral hypoglycemic drugs; J45.909 Unspecified asthma, uncomplicated; E11.9 Type 2 diabetes mellitus without complications; Z86.711 Personal history of pulmonary embolism; I10 Essential (primary) hypertension; F17.210 Nicotine dependence, cigarettes, uncomplicated; I47.1 Supraventricular tachycardia; R94.31 Abnormal electrocardiogram [ECG] [EKG]
CPT/HCPCS: 36415; 71046; 80048; 80076; 83690; 83880; 84484; 85025; 85610; 85730; 93005; 99284; A9270

== ENCOUNTER 2021-04-24 03:27 | Observation (INO) | payer OTHER, SELFPAY ==
[2021-04-24] VITALS (13 sets, daily range): BP systolic 135–163; BP diastolic 75–132; PULSE 70–90; RESP 13–33; TEMP 35.8–36.6; O2SAT 95–100; BMI 34.9
--- NOTE | ~2021-04-24 | NM_ITS ---
EXAMINATION: NM pulmonary perfusion EXAM DATE: 04/24/2021 09:58 INDICATION: Shortness of breath. TECHNIQUE: A perfusion lung scan was performed. The patient was injected with 5.5 mCi technetium 99m MAA and imaged. Modified PIOPED 2 criteria used for interpretation of perfusion without ventilation study (recent chest x-ray instead for comparison). Comparison is made to prior examination from 020. FINDINGS: Again there is complete lack of perfusion to the entire right upper lobe, unchanged compare d to 05/18/2020 exam. Please correlate with that report and the subsequent CT pulmonary scan on 0. Otherwise, relatively homogeneous perfusion without focal segmental defects, no evidence of superi mposed acute pulmonary embolism. IMPRESSION: No interval change in high probability exam, likely due to chronic occlusion right upper lobe pulmonary arteries. Reviewed, dictated and finalized at location A.
--- NOTE | ~2021-04-24 | US_ITS ---
EXAMINATION: US abdomen limited DATE: 04/24/2021 09:29 INDICATION: Right upper quadrant abdominal pain. TECHNIQUE: Multiple grayscale and Doppler ultrasound images of the abdomen were obtained. COMPARISON: CT abdomen and pelvis 04/24/2021 FINDINGS: The visualized portions of the head and body of the pancreas are normal. The liver is rubin l without focal lesion. No liver surface nodularity. There is normal flow in main portal vein. The ga llbladder is contracted around gallstones. Gallbladder wall thickening is noted. There is a positive sonographic Martinez sign. The common duct is normal and measures 4 mm. IMPRESSION: 1. Contracted gallbladder with gallstones, gallbladder wall thickening, and positive sonographic Murp hy sign. No leukocytosis. These findings are most likely chronic cholecystitis. Reviewed, dictated and finalized at location A. IMPRESSION: 1. Contracted gallbladder with gallstones, gallbladder wall thickening, and pos itive sonographic Martinez sign. No leukocytosis. These findings are most likely chronic cholecystitis.
--- NOTE | ~2021-04-24 | CT_ITS ---
EXAMINATION: CT abdomen pelvis wo con EXAM DATE: 04/24/2021 06:54 INDICATION: Right side abdominal pain. TECHNIQUE: Spiral CT of the abdomen and pelvis was performed without contrast. Axial, coronal and s agittal images of the abdomen and pelvis were reviewed. The dose-length product (DLP) for this exami nation was 996.05 mGy-cm. The exposure was tailored according to patient size (auto mA exposure cont rol), and iterative reconstruction (ASIR) was used as additional dose reduction technique. There is no prior study for comparison. FINDINGS: The liver, spleen, adrenal glands and pancreas are unremarkable. Gallbladder wall is sever devora edematous, at about 10 mm and there is mild adjacent fat stranding. No calcified cholelithiasis. Probable acute cholecystitis. 3 mm right calyceal and 2 mm left calyceal stones. There are bilateral renal cysts and hemorrhagic cysts. These lesions are incompletely characterized without contrast, fo llow-up abdomen MRI without and with contrast should be considered to exclude neoplasm. The uterus i s not identified and has likely been surgically resected. The bladder is unremarkable. There is no retroperitoneal or pelvic lymphadenopathy. Small bilateral inguinal fat-containing hernias. The appendix is normal. The stomach and small bowel are unremarkable. There is expected amount of c olonic stool. No free intraperitoneal gas. The heart is normal in size. There are no pericardial or pleural effusions. Serpiginous incompletely imaged right middle lobe structure most likely a pul monary arteriovenous malformation. There is mild emphysema. Pleural-based 4 mm left lower lobe nodule probably granuloma. There are no osteoblastic or osteolytic lesions identified. IMPRESSION: 1. Probable acute cholecystitis. 2. Renal cysts and hemorrhagic cysts. Renal cell cancer not excludable. Consider follow-up nonemerge nt abdomen MRI without and with contrast. 3. Small bilateral nephrolithiasis. 4. Incidental pulmonary AVM. Reviewed, dictated and finalized at location A. IMPRESSION: 1. Probable acute cholecystitis. 2. Renal cysts and hemorrhagic cysts. Renal cell cancer not excludable. Consid er follow-up nonemergent abdomen MRI without and with contrast. 3. Small bilateral nephrolithiasis. 4. Incidental pulmonary AVM.
--- NOTE | ~2021-04-24 | XR_ITS ---
EXAMINATION: XR chest 2V EXAM DATE: 04/24/2021 04:33 INDICATION: Shortness of breath. History of pulmonary embolism, asthma, COPD. TECHNIQUE: Frontal and lateral projections of the chest obtained and reviewed. Correlation is made to CT abdomen same date. Comparison is made to prior examination from chest x-ray 09/27/2020. FINDINGS: The lungs are clear, can't identify the suspected right middle lobe pulmonary AVM seen on C T. There are no pleural effusions. The cardiomediastinal silhouette is within normal limits. There is no pneumothorax suspected. The bones and soft tissues are unremarkable. IMPRESSION: No acute cardiopulmonary findings. Reviewed, dictated and finalized at location A.
--- NOTE | 2021-04-24 03:40 | ECG_ITS ---
Measurements Intervals [place] Rate: 66 P: 63 WI: 156 QRS: 41 QRSD: 90 T: 74 QT: 393 QTc: 412 Interpretive Statements SINUS RHYTHM BASELINE ARTIFACT- V1, V3-V6 NORMAL ECG Electronically Signed On 04-24-2021 6:20:08 CDT by Parish Finney D.O.
[2021-04-24 04:20] LABS: Basophils Percent Auto 0.1 % (0.2-1.2); Eosinophils Absolute Auto 0.1 K/mm3 (0-0.3); Eosinophils Percent Auto 0.7 % (0-4.4); Hematocrit 38.2 % (37.0-47.0); Hemoglobin 12.6 g/dL (12.0-15.0); Immature Granulocyte Absolute 0.01 K/mm3 (0.00-0.031); Immature Granulocyte Percent A 0.1 % (0-0.5); Lymphocytes Absolute Auto 2.33 K/mm3 (0.9-3.2); Lymphocytes Percent Auto 25.4 % (18.3-44.2); Mean Corpuscular Hemoglobin 27.8 pg (26-34); Mean Corpuscular Volume 84.3 fl (80-100); Mean Platelet Volume 11.5 fl (7.4-10.4); Monocytes Absolute Auto 0.5 K/mm3 (0.1-0.6); Monocytes Percent Auto 5.3 % (2.6-8.5); Neutrophils Absolute Auto 6.3 K/mm3 (1.3-6.7); Neutrophils Percent Auto 68.4 % (45.5-73.1); Platelet Count Result 203 k/mm3 (150-375); Red Blood Count 4.53 M/mm3 (4.2-5.4); Red Cell Distribution Width 13.9 % (11.5-14.5); White Blood Count 9.2 K/mm3 (4.5-10.0)
[2021-04-24 04:31] LABS: INR 1.2; Prothrombin Time 15.4 Seconds (11.1-14.7)
[2021-04-24 04:32] LABS: Partial Thromboplastin Time 35.5 SECONDS (22.3-36.8)
[2021-04-24 04:34] LABS: Anion Gap 7 mmol/L (8-16); Blood Urea Nitrogen 14 mg/dL (7-17); Calcium 9.6 mg/dL (8.4-10.2); Carbon Dioxide 26 mmol/L (22-30); Chloride 108 mmol/L (98-107); D Dimer 1.35 ug/mL (<0.48); Estimated Glomerular Filt Rate > 60; Glucose 119 mg/dL (65-105); Potassium 3.4 mmol/L (3.4-5.0); Sodium 141 mmol/L (137-145)
[2021-04-24 04:46] LABS: NT Pro B Type Natriuretic Pept 34 pg/mL (5-100); Troponin I < 0.012 ng/mL (0.000-0.034)
--- NOTE | 2021-04-24 06:42 | ED.SOB ---
HPI - SOB/Dyspnea General Chief Complaint: Shortness of Breath/Dyspnea Stated Complaint: SOB/ hx of PEs Time Seen by Provider: 04/24/21 05:05 Source: patient, RN notes reviewed and old records reviewed Mode of arrival: ambulatory Limitations: no limitations History of Present Illness HPI Narrative: This is a 55 year old female with history of PE who presents for evaluation of right side pain and shortness of breath. She states her symptoms started yesterday. She states she developed feeling of possible gas to her right flank. She is having shortness of breath due to this feeling. She has been taking gas x with out any relief. She denies cough, fever, nausea, vomiting. She also denies leg swelling. She does not think her pain is worse with eating. She still has a her gallbladder. She takes chronic anticoaguliation and she states she has not missed any doses. Related Data Home Medications Medication Instructions Recorded Confirmed acyclovir 400 mg PO DAILY 05/18/20 05/18/20 gabapentin [Neurontin] 300 mg PO TID 05/18/20 05/18/20 hydrochlorothiazide 25 mg PO DAILY 05/18/20 05/18/20 hydrocodone-acetaminophen [[place]] 1 tablet PO Q8H PRN 05/18/20 05/18/20 losartan 25 mg PO DAILY 05/18/20 05/18/20 metformin 500 mg PO DAILY 05/18/20 05/18/20 metformin [Glucophage XR] 1,000 mg PO DAILY 05/18/20 05/18/20 zolpidem 10 mg PO HS PRN 05/18/20 05/18/20 bupropion HCl 150 mg tablet,12 hr 150 mg PO DAILY 06/06/20 sustained-release lorazepam 0.5 mg tablet 0.5 mg PO DAILY PRN 06/06/20 baclofen 10 mg tablet 10 mg PO BID tablet 09/09/20 Allergies Allergy/AdvReac Type Severity Reaction Status Date / Time iohexol Allergy Anaphylaxis Verified 04/24/21 03:39 [From contrast - CT, X-RAY] levofloxacin [From Levaquin] Allergy Anaphylaxis Verified 04/24/21 03:39 Xqdibbv-Rec-Ckk Reductase Allergy Anaphylaxis Verified 04/24/21 03:39 Inhibitor tramadol Allergy Anaphylaxis Verified 04/24/21 03:39 Review of Systems Review of Systems: All systems reviewed & are unremarkable except as noted in HPI and below PMFSH Past Medical History Medical History Asthma DM2 (diabetes mellitus, type 2) History of pulmonary embolism She was on Coumadin for 6 months. Hypertension Shortness of breath Tobacco abuse counseling Unspecified asthma Surgical History Surgical History H/O: hysterectomy History of section, classical X3 Family History Family History Father Hypertension Acute pulmonary edema Mother Hypertension Social History Social History Social History: The patient lives with her partner. She has had 3 children. She is disabled. She denies any marijuana or substance abuse. The patient is every day smoker. No alcohol use. She desires to have her partner as a durable power logistics officer for healthcare. The patient desires to be a full code. Years smoked: 8 Smoking status: Current every day smoker Tobacco type: cigarettes Alcohol intake: current Drinks per week: 2 Substance use: never Gender identity (if verbalized by the patient): Female Spiritual care concerns: No Exam Const: General: no acute distress and alert Orientation/consciousness: patient oriented x3 Eyes: EOM: EOMs intact bilaterally Chest: Chest palpation & inspection: normal inspection of the chest Resp: Effort & Inspection: normal respiratory effort and no retractions Auscultation: clear to auscultation bilaterally Cardio: Rate: regular rate Rhythm: regular rhythm Heart sounds: no murmurs GI: GI Palp: Yes Soft to palpation, Yes Tenderness to palpation present (GI) (RUQ, RLQ) and Yes Guarding due to palpation present (GI) Auscultation: normal bowel sounds Skin: General skin exam: n
[2021-04-24 07:37] LABS: Alanine Aminotransferase 18 U/L (4-35); Albumin Level 3.9 g/dL (3.5-5.1); Alkaline Phosphatase 68 U/L (38-126); Aspartate Amino Transferase 25 U/L (14-36); Bilirubin,Total 0.5 mg/dL (0.2-1.3); Lipase 76 U/L (23-300)
[2021-04-24 07:39] LABS: Add Urine Microscopic? NO; Appearance Urine Clear (Clear); Bilirubin Urine Negative (Negative); Blood Urine Negative (Negative); Color Urine Straw (Yellow); Glucose Urine UA Negative (Negative); Ketones Urine Negative (Negative); Leukocyte Esterase Ur Negative LEU/UL (Negative); Nitrate Urine Negative (Negative); Protein Urine Negative (Negative); Specific Grav Ur 1.011 (1.001-1.035); Urobilinogen Urine Negative mg/dL (<2.0)
--- NOTE | 2021-04-24 09:10 | PC.NURSE ---
Pt taken to ultra sound
--- NOTE | 2021-04-24 10:38 | PC.NURSE ---
Called and gave report to Melania. Room is dirty and will call when room is ready
--- NOTE | 2021-04-24 11:13 | ADMGEN ---
This patient, Dolly Lucas, was admitted to Medical Room 251-01. Patient/family oriented to hospital policies and general routines including ID bracelet, bed and alarms, visiting hours, pain management, procedures, bathroom and other care routines, personal items, smoking policy, room service/diet, and visiting hours. Information on how to activate the Rapid Response Team has been discussed. Patient/Family are encouraged to report perceived risks to care and to ask questions if they do not understand what they are told or what they should do.
--- NOTE | 2021-04-24 12:53 | PM.CNGS ---
Assessment and Plan Assessment and plan (1) Cholelithiasis with acute on chronic cholecystitis without biliary obstruction: Onset Date: ~04/23/21 Code(s): K80.12 - Calculus of gallbladder with acute and chronic cholecystitis without obstruction Status: Acute Assessment and Plan: this peers to be the main reason for the patient's hospitalization. She has on blood thinner which will have to wait to wear off. We can use interim Lovenox and then stop the 12 hours prior to her planned procedure. Would like to wait about 48 hours from the time of her last dose of Eliquis. That would put us at around Tuesday morning for her planned operation. I have discussed with her the risks, benefits, possible complications of a laparoscopic cholecystectomy with possible intraoperative cholangiogram possible open cholecystectomy. Possible problems including bleeding infection possible injury to the common bile duct possible new surrounding organs have been described and she seems understand wished to proceed. Will start on cefotetan since she may have some element of acute cholecystitis by the change changes noted on CT and ultrasound. Will await pulmonary/medical clearance for general anesthesia by the primary/hospitalist service. (2) Abdominal pain, right upper quadrant: Onset Date: ~04/23/21 Code(s): R10.11 - Right upper quadrant pain Status: Acute Assessment and Plan: Most likely secondary 1. Above. See plan above. (3) History of pulmonary embolism: Onset Date: Unknown Code(s): Z86.711 - Personal history of pulmonary embolism Status: Acute Assessment and Plan: Patient has pulmonary embolus in the past. She has been on Coumadin in the distant past and more recently on Eliquis. Because of her shortness of breath related to the right upper quadrant pain when she came today she thought maybe she was have another pulmonary emboli even though she was on Eliquis. Will need the CIS hold the Eliquis now that we know that she has gallstones she probably has some element of acute cholecystitis such that I would like to get to do her gallbladder surgery within the next 72 hours. Per will need to hold off on her Eliquis for 40 hours in plan to do the surgery this weekend. (4) Restrictive pattern present on pulmonary function testing: Code(s): R94.2 - Abnormal results of pulmonary function studies Status: Acute (5) Hypertension: Code(s): I10 - Essential (primary) hypertension Status: Acute (6) DM2 (diabetes mellitus, type 2): Code(s): E11.9 - Type 2 diabetes mellitus without complications Status: Chronic Assessment and Plan: on Metformin for this. History of Present Illness Consult details Consult date: 04/24/21 Reason for consult: abdominal pain Narrative: This patient is a pleasant 55-year-old black female who presented to the emergency room this morning at [facility] with complaints of upper abdominal pain and shortness of breath. She states that her pain started about 6:00 p.m. last night. In this was after a meal of cold tuna fish salad and crackers. Earlier yesterday she had also had a spicy lunch on her Keto diet. Interestingly when reviewing her old records there is a record of her going to the hospital ( [place])with a very similar story in May of last year at which time her labs looked very similar with a normal white count and normal LFTs, except for slightly elevated AST. Lipase was normal at that time as well as in the emergency room today. CT scan as part of her emergency room workup today showed thickening of the gallbladder wall but no stones. Gallbladder on a inflammation was suspected. Also noted were some hemorrhagic cysts in the kidneys and because patient has had a anaphylactic reaction to dye in the past dye was not used. They suggested the patient consider having an MR the kidneys in the future as an outpatient to rule o
[2021-04-24] MEDS: cefoTEtan DISODIUM INJ 2 GM in DEXTROSE 5% IN WATER 50 ML IVPB ×2 (13:07→23:41)
[2021-04-24] MEDS: SODIUM CHLORIDE 0.9% IV 1,000 ML 100 ML IV CONT ×2 (13:07→23:41)
--- NOTE | 2021-04-24 13:15 | PM.IMHP ---
H&P: HPI History of Present Illness Date/Time: 04/24/21 13:15 Chief Complaint: Shortness of breath and right-sided pain. Narrative: This is a 55-year-old female with history of pulmonary embolism, diabetes, and hypertension who presented to the emergency department earlier today from home for evaluation of shortness of breath and right-sided pain. Yesterday she developed pain in her right flank that she initially attributed to gas however she did take Gas-X and that provided heard no relief. The pain seems to be a bit worse with eating and in fact it started after eating tuna with downey and crackers. The pain seems to be colicky in nature and she describes a ?grabbing? discomfort mainly in the right flank but it does radiate into the right upper quadrant and to the right scapula. She has felt nauseated since the onset of the symptoms but she has not had any vomiting. Additionally she reports feeling a bit short of breath when that pain started, but she believes that is due to splinting as a deep inspiration causes worsening of the pain. CT of the abdomen and pelvis showed findings of probable acute cholecystitis and she is being admitted in this setting. 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 As mentioned she has a history of recurrent pulmonary emboli and has been on long-term anticoagulation for many years and has not missed any doses. Incidentally this CT of the abdomen showed incompletely visualized area in the right middle lobe which is felt to be a pulmonary AVM of which the patient was unaware of. At the time my evaluation she continues to have intermittent right upper quadrant/flank pain coming and going in waves of intensity. Nausea has seemed to improve. She denies fever, chills, and sweats. No vomiting or diarrhea. No chest pain, pleuritic pain, or palpitations. Review of Systems Review of Systems: Narrative: Twelve systems were reviewed with pertinent positives and negatives as per HPI. She denies recent cold and flu symptoms. No cough. No syncope or near syncope. Diabetes is well controlled with a recent hemoglobin A1c of around 6%. Fasting glucose is usually around 100. No blurry vision, polydipsia, or polyuria. No lower extremity edema, orthopnea, or PND. Denies dysuria. No hematuria. No history of malignancy. Weight has remained stable. Except as documented, all other systems were reviewed and are negative. REPLACED BY [facility] Past Medical History Medical History (Updated 04/24/21 @ 22:55 by Sabina Leonardo PA-C) Asthma Chronic pain syndrome Low back and knees. History of pulmonary embolism Recurrent PEs in 1988, 2007, and 2019. On long-term apixaban. Hyperlipidemia Hypertension Nephrolithiasis Osteoarthritis Thyroid nodule Tobacco dependence Type 2 diabetes mellitus Surgical History Surgical History (Updated 04/24/21 @ 14:23 by Sabina Leonardo PA-C) History of 3 sections History of hysterectomy (2006) Family History Family History Father Acute pulmonary edema Hypertension Mother Breast cancer Social History Social History (Updated 04/24/21 @ 22:56 by Sabina Leonardo PA-C) Social History: The patient lives alone in [place]. She has had 3 children. On disability. Smokes 1 pack of cigarettes per day and has for years. No alcohol or illicit substance abuse. She designates her sister, Nika Crisostomo or her Jillian Boseope as her surrogate decision makers and she wishes to be a full code. Meds Home Medications and Allergies Home Medications Medication Instructions Recorded Confirmed Type gabapentin [Neurontin] 300 mg PO TID 05/18/20 04/24/21 History hydrochlorothiazide 25 mg PO DAILY 05/18/20 04/24/21 History hydrocodone-acetaminophen [Salvisa] See Rx Instructions .ROUTE .COMPLEX 05/18/20 04/24/21 History losartan 25
[2021-04-24 16:39] LABS: Hemoglobin A1C 5.9 % (<5.7)
[2021-04-24 18:21] LABS: Glucose Point of Care 106 mg/dl (65-105)
[2021-04-24] MEDS: ONDANSETRON INJ 4 MG/2 ML VIAL IV PUSH (18:29)
[2021-04-24] MEDS: HYDROcodone/acetaminophen (*CRX) 7.5-325 MG TABLET 1 TAB PO (18:37)
[2021-04-24] MEDS: ENOXAPARIN 100 MG/ML SYRINGE 90 MG SUB-Q (21:04)
[2021-04-24] MEDS: EZETIMIBE 10 MG TABLET PO (21:05)
[2021-04-24] MEDS: ZOLPIDEM TARTRATE (*CRX) 5 MG TABLET 10 MG PO (21:22)
[2021-04-25 00:03] LABS: Glucose Point of Care 100 mg/dl (65-105)
[2021-04-25 05:50] LABS: Basophils Percent Auto 0.3 % (0.2-1.2); Eosinophils Absolute Auto 0.1 K/mm3 (0-0.3); Eosinophils Percent Auto 0.9 % (0-4.4); Hematocrit 36.6 % (37.0-47.0); Hemoglobin 11.9 g/dL (12.0-15.0); Immature Granulocyte Absolute 0.02 K/mm3 (0.00-0.031); Immature Granulocyte Percent A 0.3 % (0-0.5); Lymphocytes Absolute Auto 2.21 K/mm3 (0.9-3.2); Lymphocytes Percent Auto 32.1 % (18.3-44.2); Mean Corpuscular HGB Conc 32.5 g/dl (32-36); Mean Corpuscular Hemoglobin 27.6 pg (26-34); Mean Corpuscular Volume 84.9 fl (80-100); Mean Platelet Volume 11.4 fl (7.4-10.4); Monocytes Absolute Auto 0.3 K/mm3 (0.1-0.6); Monocytes Percent Auto 4.5 % (2.6-8.5); Neutrophils Absolute Auto 4.3 K/mm3 (1.3-6.7); Neutrophils Percent Auto 61.9 % (45.5-73.1); Platelet Count Result 191 k/mm3 (150-375); Red Blood Count 4.31 M/mm3 (4.2-5.4); Red Cell Distribution Width 13.8 % (11.5-14.5); White Blood Count 6.9 K/mm3 (4.5-10.0)
[2021-04-25 06:00] VITALS: BP 137/72; PULSE 71; RESP 16; TEMP 36.4; O2SAT 98
[2021-04-25 06:05] LABS: Alanine Aminotransferase 15 U/L (4-35); Albumin Level 3.6 g/dL (3.5-5.1); Alkaline Phosphatase 63 U/L (38-126); Anion Gap 6 mmol/L (8-16); Aspartate Amino Transferase 17 U/L (14-36); Bilirubin,Total 0.7 mg/dL (0.2-1.3); Blood Urea Nitrogen 8 mg/dL (7-17); Carbon Dioxide 24 mmol/L (22-30); Chloride 112 mmol/L (98-107); Estimated CRCL calculation 73 ml/min; Estimated Glomerular Filt Rate > 60; Glucose 93 mg/dL (65-105); Lipase 288 U/L (23-300); Magnesium 1.7 mg/dL (1.6-2.3); Potassium 3.7 mmol/L (3.4-5.0); Sodium 142 mmol/L (137-145)
[2021-04-25] MEDS: FLUTICASONE PROPIONATE 0.05% NA SPR 16 GM BTL (*BKC) 2 SPRAY NASAL (08:49)
[2021-04-25] MEDS: ENOXAPARIN 100 MG/ML SYRINGE 90 MG SUB-Q ×2 (08:50→20:46)
[2021-04-25] MEDS: GABAPENTIN 300 MG CAPSULE PO (08:51)
[2021-04-25] MEDS: HYDROcodone/acetaminophen (*CRX) 5-325 MG TABLET 1 TAB BY MOUTH ×2 (08:51→22:14)
[2021-04-25] MEDS: FAMOTIDINE 20 MG TABLET 40 MG PO (08:52)
[2021-04-25] MEDS: LOSARTAN POTASSIUM 25 MG TABLET PO (08:52)
[2021-04-25 09:07] LABS: Glucose Point of Care 102 mg/dl (65-105)
--- NOTE | 2021-04-25 09:27 | PM.IMPN ---
Progress Note: A&P Assessment and Plan (1) Cholelithiasis with acute on chronic cholecystitis without biliary obstruction: Onset Date: ~04/23/21 Code(s): K80.12 - Calculus of gallbladder with acute and chronic cholecystitis without obstruction Status: Acute Assessment and Plan: She has been seen and evaluated by Dr. Madison (general surgery) and he recommends cholecystectomy. She is on apixaban for history of recurrent pulmonary emboli and as such, surgery is being planned for tomorrow morning to allow 48 hours passage of time since last dose of Eliquis. Continue Lovenox in the interim which is to be held 12 hours prior to scheduled surgery time. IV Cefotetan per general surgery. Pain is well controlled at this time. Continue clear liquid diet. (2) Shortness of breath: Code(s): R06.02 - Shortness of breath Status: Acute Assessment and Plan: Improved today. May be related to pain due to cholecystitis as her pain seems to be worse with deep inspiration. 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 Incidentally a possible pulmonary AVM was also noted on her CT of the abdomen and pelvis, the significance of such not clear at this time. Pulmonology consultation has been requested as she follows with Dr. Tucker as an outpatient. Will await further recommendations and input. (3) Renal cyst: Code(s): N28.1 - Cyst of kidney, acquired Status: Acute Assessment and Plan: CT showed renal cysts and hemorrhagic cyst, cancer not excludable. Discussed recommendations for non emergent follow-up with an abdominal MRI with and without contrast. 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 Dr. Tucker consulted as above. (5) Tobacco dependence: Code(s): F17.200 - Nicotine dependence, unspecified, uncomplicated Status: Acute Assessment and Plan: Smoking cessation is imperative and was discussed. She declines the need for a nicotine patch. Subjective Date/time seen: 04/25/21 09:27 Interval history: Date of service: 04/25/2020 Dolly Lucas is a 55-year-old female with a history of pulmonary embolism on chronic anticoagulation, hypertension, hyperlipidemia, thyroid nodule, type 2 diabetes mellitus, and tobacco dependence who is seen in follow-up for acute on chronic cholecystitis. She is feeling better today. Her right upper quadrant pain has improved and she currently rates this as 5/10 in severity. She is endorsing mild shortness of breath, but states this is also improved since yesterday. She has some midsternal pleuritic chest pain which occurs with deep inspiration. She denies nausea, vomiting, fever, or chills. She had some sweats yesterday. She has been able to ambulate independently. Denies dizziness. She does have a frontal headache has been persistent since yesterday and occasional episodes of lightheadedness, though none at this time. Denies palpitations. No urinary symptoms. Last bowel movement was 2 days ago. Denies diarrhea. Tolerating clear liquids. Review of Systems Review of Systems: All systems reviewed & are unremarkable except as noted in HPI and below Exam Narrative: Exam Narrative: Ms. Lucas is a well-nourished, well-appearing 55-year-old female who is sitting up in bed. She appears comfortable and is in NARD. Neuro: awake, alert and oriented x4, speech clear, no focal neuro deficits noted HEENMT: normocephalic, atraumatic, EOMI, sclerae anicteric, moist oral mucosa, tongue midline, nares patent Neck: supple, no lymphadenopathy Ch
[2021-04-25] MEDS: ONDANSETRON INJ 4 MG/2 ML VIAL IV PUSH ×2 (09:55→17:36)
[2021-04-25] MEDS: SODIUM CHLORIDE 0.9% IV 1,000 ML 100 ML IV CONT (11:18)
[2021-04-25 12:02] LABS: Glucose Point of Care 76 mg/dl (65-105)
--- NOTE | 2021-04-25 12:33 | PC.NURSE ---
Called and left voice message for Char NI regarding blood glucose of 76. Patient asymptomatic and ate entire tray of clear liquids. NS running at 100 cc/hr. Awaiting return call from Char NI.
[2021-04-25] MEDS: cefoTEtan DISODIUM INJ 2 GM in DEXTROSE 5% IN WATER 50 ML IVPB ×2 (13:20→23:56)
[2021-04-25] MEDS: DEXTROSE 5%/0.9% SOD CHL 1,000 ML 100 ML IV CONT ×2 (13:20→23:56)
--- NOTE | 2021-04-25 13:50 | PM.CNPUL ---
Assessment and Plan Assessment and plan (1) Pulmonary arteriovenous malformation: Code(s): Q25.72 - Congenital pulmonary arteriovenous malformation Status: Acute Assessment and Plan: This appears to be a new finding, Serpiginous incompletely imaged right middle lobe structure most likely a pulmonary arteriovenous malformation. This is seen on the CTA April 24. She does not have hemoptysis or other symptoms that suggest AVM. She has not had this appear on prior imaging. She does not have low saturation clubbing or cyanosis. PLAN : echo with bubble study to look for R-->L shunt. May need additional evaluation. (2) Shortness of breath: Code(s): R06.02 - Shortness of breath Status: Acute Assessment and Plan: Resolved after diagnosis of cholecystitis and treatment (3) History of pulmonary embolism: Onset Date: Unknown Code(s): Z86.711 - Personal history of pulmonary embolism Status: Acute Assessment and Plan: She has had several episodes of PE, last acute event was May 182019 at [place]. She has been complaint with Eliquis; Both parents had thromboembolic events. Off Eliquis and needs to restart after surgery (4) Tobacco abuse: Code(s): Z72.0 - Tobacco use Status: Acute Assessment and Plan: less than a pack a day, often around 1/4 pack a day tobacco cessation stringly encouraged (5) Asthma: Qualifiers: Asthma complication type: unspecified Asthma persistence: persistent Asthma severity: severe Qualified Code(s): J45.50 - Severe persistent asthma, uncomplicated Code(s): J45.909 - Unspecified asthma, uncomplicated Status: Acute Assessment and Plan: stable without symptoms. using Dulera for controller medication History of Present Illness History of Present Illness Consult date: 04/25/21 Requesting physician: Joselin Cruz MD Chief complaint: R Upper Abdominal Pain/Poss. Cholecystitis/Hx PE Narrative: Patientwas seen in consultation April 25, 2020. NEW: Dolly Lucas is a 55 year old female who we see in the clinic for recurrent PE, pulmonary nodules, asthma and tobacco abuse. Last visit was Aug, 2020. She had a restrictive pattern developing on her PFTs. She presented to the ED April 24 with with shortness of breath and right sided abdominal pain, has cholecystitis, and a pulmonary AVM incidentally and incompletely imaged, noted on CT of the abdomen and pelvis. She has been on apixaban for recurrent PE. She is waiting for her apixaban to wear off before proceeding with the cholecystectomy. She is smoking less than a pack a day, often about a 1/4 pack a day. Her symptoms worried her at first that she was having another pulmonary emboli as she has had several before, but she had nausea which she has not had with her PE, and the VQ scan showed a stable pattern with chronic occlusion to the RUL pulmonary arteries. Her shortness of breath has resolved. She has a saturation of 98% on room air. DATA: * VQ scan 04/24/2021 = No interval change in high probability exam, likely due to chronic occlusion right upper lobe pulmonary arteries. * PFT 07/01/2020 FEV1 - 70% , FVC 68%, FEV1% - 77% normal. SIE26-29% decreased at 53%. No change after bronchodilator. TLC decreased 78%, mild restriction. Increased air trapping with RV/TLC 43%. DLCO 67%. 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
[2021-04-25 14:00] VITALS: BP 145/95; PULSE 81; RESP 18; TEMP 36.2; O2SAT 99
--- NOTE | 2021-04-25 16:30 | PM.PNGS ---
Progress Note: A&P Assessment and Plan (1) Cholelithiasis with acute on chronic cholecystitis without biliary obstruction: Onset Date: ~04/23/21 Code(s): K80.12 - Calculus of gallbladder with acute and chronic cholecystitis without obstruction Status: Acute Assessment and Plan: Patient is responding to antibiotics. We are planning to proceed with a laparoscopic cholecystectomy, possible IOC, possible open cholecystectomy tomorrow when her Eliquis is completely worn off. She will receive her last dose of full dose Lovenox tonight at 9:00 p.m.. Surgery is planned for 0730 tomorrow. Will then possibly refer resume her Eliquis either tomorrow evening if there is no blush bleeding at surgery or the following day. (2) Type 2 diabetes mellitus: Onset Date: Unknown Code(s): E11.9 - Type 2 diabetes mellitus without complications Status: Acute Assessment and Plan: Medicine/hospitalist is following her diabetes. Her blood sugars are in pretty good control. Hemoglobin A1c was slightly up at 5.9. (3) Hypertension: Code(s): I10 - Essential (primary) hypertension Status: Acute Assessment and Plan: Patient has continued on her usual home meds and will receive p.r.n. medication IV if needed when NPO for elevated blood pressures. Medicine/hospitalist Service following this. (4) History of pulmonary embolism: Onset Date: Unknown Code(s): Z86.711 - Personal history of pulmonary embolism Status: Acute Assessment and Plan: Appreciate Dr. Tucker's consultation. Will use SCD hose to help prevent DVT around the time of surgery and then resume Eliquis once risks of bleeding are decreased after surgery. Subjective Subjective Date/Time Seen: 04/25/21 16:30 Patient is sitting up in bed when I entered the room. She states pain is almost gone. She has been tolerating clear liquids over the last 24 hours. She would like to have a little more tonight if possible. I think she could have a low-fat diet tonight and then NPO for surgery after that. Review of Systems Constitutional: Constitutional: Reports no additional constitutional complaints ENT: Reports other (Mucous Membranes moist.) Cardiovascular: Cardiovascular: Denies dyspnea Respiratory: Respiratory: Denies pain on inspiration and Denies dyspnea Musculoskeletal: Musculoskeletal: Reports other (No calf swelling or edema) Integumentary/Breasts: Skin/Breast: Reports system reviewed and no additional complaints, except as docu Exam Const: General: cooperative, no acute distress, alert and awake Orientation/consciousness: patient oriented x3 HENMT: Mouth: Yes moist mucous membranes Neck: Neck: normal visual inspection Chest: Chest palpation & inspection: normal inspection of the chest Resp: Effort & Inspection: normal respiratory effort Auscultation: clear to auscultation bilaterally Cardio: Jugular venous distension: no JVD Rate: regular rate Rhythm: regular rhythm GI: Rectal Exam: deferred Neuro: General: patient oriented x3 and moves all extremities Speech: normal speech Extrem: General: normal exam except as noted Psych: Mental Status: mental status grossly normal Speech and movement: Normal speech and movement present Affect: normal affect Thought content: Yes Normal thought content present Objective Data Vital Signs Vital Signs: Vital Signs - 24 hr 04/24/21 20:32 04/25/21 06:00 04/25/21 14:00 Temperature 36.2 C L 36.4 C L 36.2 C L Pulse Rate 76 71 81 Respiratory Rate 16 16 18 Blood Pressure 138/78 137/72 145/95 H Pulse Oximetry 98 98 99 Intake/Output Intake/Output: Intake & Output 04/22/21 04/23/21 04/24/21 04/25/21 23:59 23:59 23:59 23:59 Intake Total 2150 2630 Balance 2150 2630 Meds/Results Medications: Active Medications Generic Name Dose Route Start Last Admin Trade Name Freq PRN Reason Stop Dose Admin Acetaminophen 1,000 mg 04/24/21 12
[2021-04-25 17:50] LABS: Glucose Point of Care 115 mg/dl (65-105)
[2021-04-25] MEDS: EZETIMIBE 10 MG TABLET PO (20:47)
[2021-04-25] MEDS: ZOLPIDEM TARTRATE (*CRX) 5 MG TABLET 10 MG PO (20:47)
[2021-04-25 21:26] VITALS: BP 140/66; PULSE 72; RESP 18; TEMP 36.3; O2SAT 95
[2021-04-25 21:42] LABS: Glucose Point of Care 104 mg/dl (65-105)
[2021-04-25] MEDS: PROMETHAZINE HCL 25 MG/ML AMPUL 12.5 MG IM (22:14)
[2021-04-26] VITALS (14 sets, daily range): BP systolic 121–152; BP diastolic 56–83; PULSE 64–83; RESP 15–22; TEMP 35.6–36.7; O2SAT 91–99
[2021-04-26 05:47] LABS: Hematocrit 34.7 % (37.0-47.0); Hemoglobin 11.4 g/dL (12.0-15.0)
[2021-04-26 06:13] LABS: Alanine Aminotransferase 15 U/L (4-35); Albumin Level 3.5 g/dL (3.5-5.1); Alkaline Phosphatase 59 U/L (38-126); Anion Gap 6 mmol/L (8-16); Aspartate Amino Transferase 17 U/L (14-36); Bilirubin,Total 0.5 mg/dL (0.2-1.3); Blood Urea Nitrogen 8 mg/dL (7-17); Calcium 8.7 mg/dL (8.4-10.2); Carbon Dioxide 24 mmol/L (22-30); Chloride 112 mmol/L (98-107); Estimated CRCL calculation 66 ml/min; Estimated Glomerular Filt Rate > 60; Glucose 116 mg/dL (65-105); Potassium 3.8 mmol/L (3.4-5.0); Sodium 142 mmol/L (137-145)
--- NOTE | 2021-04-26 07:27 | WPDHPUPDATE1 ---
History and Physical Update Update Date/Time: 04/26/21 07:27 History and Physical has been reviewed, including an updated exam of the patient. There are changes in the patient's condition. She has had improvement in her pain. Also her white count has come down to normal. All LFTs have returned to normal. Lipase yesterday was in the normal range. Patient has been seen by her blister packing machine tender, Dr. Tucker, and has been given pulmonary clearance for general anesthesia. Risks, benefits, and alternatives have been discussed and questions answered. Patient agrees to proceed with procedure.
--- NOTE | 2021-04-26 07:33 | WPDANESEPPF ---
Anes - Initial Pre Proc Eval Procedure: Operation Date: 04/26/21 07:30 Proposed Procedures p Laparoscopic Cholecystectomy - Owen Madison MD Date/Time: 04/26/21 07:33 Surgeon: Char Kinney PA-C Pre Op Diagnosis: R Upper Abdominal Pain/Poss. Cholecystitis/Hx PE Patient Data Age: 55 Gender: F Height: 5 ft 3 in Weight: 89.3 kg Last Vital Signs Temp 36.1 C L 04/26/21 05:45 Pulse 73 04/26/21 05:45 Resp 18 04/26/21 05:45 BP 142/70 H 04/26/21 05:45 Pulse Ox 97 04/26/21 05:45 Allergies Allergy/AdvReac Type Severity Reaction Status Date / Time iohexol Allergy Anaphylaxis Verified 04/24/21 11:22 [From contrast - CT, X-RAY] levofloxacin [From Levaquin] Allergy Anaphylaxis Verified 04/24/21 11:22 [id number] Reductase Allergy Anaphylaxis Verified 04/24/21 11:22 Inhibitor tramadol Allergy Anaphylaxis Verified 04/24/21 11:22 Home Medications Medication Instructions Recorded Confirmed Type gabapentin [Neurontin] 300 mg PO TID 05/18/20 04/24/21 History hydrochlorothiazide 25 mg PO DAILY 05/18/20 04/24/21 History hydrocodone-acetaminophen [[place]] See Rx Instructions .ROUTE .COMPLEX 05/18/20 04/24/21 History losartan 25 mg PO DAILY 05/18/20 04/24/21 History zolpidem 10 mg PO HS PRN 05/18/20 04/24/21 History apixaban [Eliquis] 10 mg PO Q12HR 30 Days #74 tablet 05/20/20 04/24/21 Rx mometasone-formoterol [Dulera] 2 puff INHALATION Q12H 30 Days #13 05/20/20 04/24/21 Rx gm lorazepam 0.5 mg tablet 0.5 mg PO DAILY PRN 06/06/20 04/24/21 History cyclobenzaprine 10 mg PO DAILY PRN 04/24/21 04/24/21 History diphenhydramine HCl [Benadryl] 25 mg PO PRN PRN 04/24/21 04/24/21 History ezetimibe [Zetia] 10 mg PO HS 04/24/21 04/24/21 History famotidine 40 mg PO DAILY 04/24/21 04/24/21 History fluticasone propionate 2 spray INTRANASAL DAILY 04/24/21 04/24/21 History metformin 500 mg PO BID 04/24/21 04/24/21 History ondansetron [Zofran ODT] 4 mg PO Q4-6H PRN 04/24/21 04/24/21 History Laboratory Tests 04/25/21 04/25/21 04/25/21 08:46 12:00 17:34 Hgb Hct Sodium Potassium Chloride Carbon Dioxide Anion Gap BUN Creatinine Estim Creat Clear Calc Estimated GFR Glucose POC Capillary Glucose 102 mg/dl mg/dl 76 mg/dl mg/dl 115 mg/dl H mg/dl (65-105) (65-105) (65-105) Calcium Total Bilirubin AST ALT Alkaline Phosphatase Total Protein Albumin Blood Type Antibody Screen 04/25/21 04/26/21 04/26/21 20:45 05:31 05:31 Hgb 11.4 g/dL L g/dL (12.0-15.0) Hct 34.7 % L % (37.0-47.0) Sodium 142 mmol/L mmol/L (137-145) Potassium 3.8 mmol/L mmol/L (3.4-5.0) Chloride 112 mmol/L H mmol/L (98-107) Carbon Dioxide 24 mmol/L mmol/L (22-30) Anion Gap 6 mmol/L L mmol/L (8-16) BUN 8 mg/dL mg/dL (7-17) Creatinine 0.90 mg/dL mg/dL (0.7-1.0) Estim Creat Clear Calc 66 ml/min ml/min Estimated GFR > 60 (59 - ) Glucose 116 mg/dL H mg/dL (65-105) POC Capillary Glucose 104 mg/dl mg/dl (65-105) Calcium 8.7 mg/dL mg/dL (8.4-10.2) Total Bilirubin 0.5 mg/dL mg/dL (0.2-1.3) AST 17 U/L U/L (14-36) ALT 15 U/L U/L (4-35) Alkaline Phosphatase 59 U/L U/L (38-126) Total Protein 7.0 g/dL g/dL (6.3-8.2) Albumin 3.5 g/dL g/dL (3.5-5.1) Blood Type Antibody Screen 04/26/21 05:31 Hgb Hct Sodium Potassium Chloride Carbon Dioxide Anion Gap BUN Creatinine Estim Creat Clear Calc Estimated GFR Glucose POC Capillary Glucose Calciu
[2021-04-26] MEDS: BUPIVACAINE/EPINEPHRINE 0.5% 10 ML VIAL 30 ML INFILTRATE (07:57)
[2021-04-26] MEDS: KETOROLAC 30 MG/ML VIAL (*BKC) IV PUSH (09:10)
--- NOTE | 2021-04-26 09:11 | W.PM.PROC2 ---
Procedure Note - Detailed Date of Procedure 04/26/21 Pre-op Diagnosis R Upper Abdominal Pain/Poss. Cholecystitis/Hx PE Post-op Diagnosis other (Chronic cholecystitis with cholelithiasis) Procedure Performed Laproscopic Cholecystectomy Surgeon Owen Madison MD Burnishing Machine Operator Jewel [email or web address] medical assistant float Anesthesia general Indications Patient presented to the emergency room with shortness of breath but was later found to have right upper quadrant pain leading to this. CT suggested thickening of the gallbladder wall. Ultrasound confirmed gallstones. There was thickening of the gallbladder wall on ultrasound also therefore patient was started on antibiotics and allowed to come off her anticoagulation in order to have surgery. It was felt she would be best served by having her gallbladder out at this point since she is on chronic anticoagulation for pulmonary embolus it would not be easy for her to be cared for if she came in urgently with acute cholecystitis leading to sepsis. Findings Some it omental adhesions to the gallbladder with a palpable stone in the gallbladder upon removal. No obvious acute inflammation at this time. Description of Procedure Patient was seen preoperatively in the holding area and risks, benefits and alternatives confirmed. Patient was taken to the operating room and general anesthesia was induced. A time out was then preformed with the surgery team confirming patient and site of surgery. The abdomen was prepped and draped in the usual sterile fashion. Incision was made just below the umbilicus with an 11 blade knife. I placed 2 stay sutures of O- Vicryl on either side of the mid-line fascia beneath the umbilicus and was then able to slide in the Larry cannula through the fascial defect into the peritoneum. First under low flow and then under high flow the abdomen was insufflated with carbon dioxide never exceeding a pressure of 14. Three 5 mm trocars were then introduced under direct vision. The following trocars were introduced under direct vision: a 5 mm in the epigastrium and two 5 mm trocars along the right costal margin laterally in the subcostal area. There were significant omental adhesions to the underside of the gallbladder. These were taken down with blunt and sharp dissection using some Bovie cautery for hemostasis. We were able to dissect this completely away from the neck of the gallbladder. I then carefully used the L-shaped cautery and the [place] dissector to dissect out the triangle of [place]. I then was able to dissect out both the cystic duct and cystic artery and identify a window of safety. The gall bladder was grasped and the cystic duct and artery were dissected free and clipped with an 5 mm endo-clip experimental machining lab manager. The cystic duct and artery were clipped with use of 2 clips on the patient's side 1 on the gallbladder side utilizing a 5 mm endoclip-experimental machining lab manager. The cystic duct was then transected. The cystic artery was also transected at this point. The gall bladder was removed using electrocautery and then removed from the abdomen using a large 10 mm grasper via the umbilical incision. The trocars were removed visualizing hemostasis and the remaining gas evacuated. The large trocar site at the umbilicus was closed with use of the 2 stay sutures of 0 Vicryl mentioned above and also a figure of 8 O-Vicryl suture. The 2 stay sutures mentioned above on either side of the fascia were also tied together to help approximate this midline fascia. Further local anesthetic was placed into each incision for postop pain control. The skin incisions were closed with subcuticular suture of 4-0 Monocryl. Surgical glue then was applied to all the incisions. Patient tolerated the procedure well was taken to the recovery room in good condition. Implants none Estimated Blood Loss 10 Drains No Packing No Pathology yes (Gallbladder) Complications No immediate complications Condition stable Disposition PACU
[2021-04-26] MEDS: LACTATED RINGERS 1,000 ML 30 ML IV CONT ×2 (09:12)
[2021-04-26] MEDS: ONDANSETRON INJ 4 MG/2 ML VIAL IV PUSH (09:29)
[2021-04-26] MEDS: fentaNYL CITRATE INJ (*CRX) 100 MCG/2 ML VIAL 25 MCG IV PUSH ×4 (09:31→10:03)
[2021-04-26] MEDS: PROMETHAZINE HCL 25 MG/ML AMPUL 12.5 MG IV PUSH ×2 (10:02→15:22)
[2021-04-26 10:11] LABS: Magnesium 1.9 mg/dL (1.6-2.3)
--- NOTE | 2021-04-26 11:00 | PC.NURSE ---
Received patient from OR via stretcher. Patient settled in room. C/o pain at 8/10 to abdomen and c/o slight nausea. Significant other at bedside. SCDs reapplied. No distress noted.
[2021-04-26] MEDS: MORPHINE SULFATE (*CRX) 4 MG/ML INJ IV PUSH ×3 (11:53→20:31)
[2021-04-26] MEDS: FAMOTIDINE 20 MG TABLET 40 MG PO (13:16)
[2021-04-26] MEDS: FLUTICASONE PROPIONATE 0.05% NA SPR 16 GM BTL (*BKC) 2 SPRAY NASAL (13:16)
[2021-04-26] MEDS: LOSARTAN POTASSIUM 25 MG TABLET PO (13:16)
[2021-04-26 13:32] LABS: Glucose Point of Care 175 mg/dl (65-105)
--- NOTE | 2021-04-26 15:02 | PM.IMPN ---
Progress Note: A&P Assessment and Plan (1) Cholelithiasis with acute on chronic cholecystitis without biliary obstruction: Onset Date: ~04/23/21 Code(s): K80.12 - Calculus of gallbladder with acute and chronic cholecystitis without obstruction Status: Acute Assessment and Plan: She is now status post laparoscopic cholecystectomy performed today by Dr. Madison. She tolerated the procedure well. Pain is well controlled. Appreciate general surgery consultation Advance diet per general surgery Gentle IV fluids until diet is advanced Analgesics and antiemetics available as needed Eliquis on hold perioperatively. Resume when okay from surgery standpoint. (2) Shortness of breath: Code(s): R06.02 - Shortness of breath Status: Acute Assessment and Plan: Resolved. May be related to pain due to cholecystitis as her pain seems to be worse with deep inspiration. 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 Incidentally a possible pulmonary AVM was also noted on her CT of the abdomen and pelvis, the significance of such not clear at this time. Pulmonology consultation has been requested as she follows with Dr. Tucker as an outpatient. Appreciate recommendations. (3) Renal cyst: Code(s): N28.1 - Cyst of kidney, acquired Status: Acute Assessment and Plan: CT showed renal cysts and hemorrhagic cyst, cancer not excludable. Discussed recommendations for non emergent follow-up with an abdominal MRI with and without contrast. 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 Dr. Tucker consulted as above. (5) Tobacco dependence: Code(s): F17.200 - Nicotine dependence, unspecified, uncomplicated Status: Acute Assessment and Plan: Smoking cessation is imperative and was discussed. She declines the need for a nicotine patch. Subjective Date/time seen: 04/26/21 15:02 Interval history: Date of service: 04/26/2020 Dolly Lucas is a 55-year-old female with a history of pulmonary embolism on chronic anticoagulation, hypertension, hyperlipidemia, thyroid nodule, type 2 diabetes mellitus, and tobacco dependence who is seen in follow-up for acute on chronic cholecystitis. She underwent laparoscopic cholecystectomy today and tolerated the procedure well. She reports 5/10 pain at this time that she describes as abdominal soreness. She had some nausea following surgery but feels better at this time. She is tolerating clear liquids. She has been able to ambulate and denies dizziness or lightheadedness. No issues with urinating. She denies shortness breath, cough, or chest pain. She is feeling tired after her surgery. Review of Systems Review of Systems: All systems reviewed & are unremarkable except as noted in HPI and below Exam Narrative: Exam Narrative: Ms. Lucas is a well-nourished, well-appearing 55-year-old female who is sitting up in bed. She appears comfortable and is in NARD. Neuro: awake, alert and oriented x4, speech clear, no focal neuro deficits noted HEENMT: normocephalic, atraumatic, EOMI, sclerae anicteric, moist oral mucosa, tongue midline, nares patent Respiratory: clear to auscultation bilaterally, nonlabored breathing Cardio: regular rate, regular rhythm with S1-S2 Abdomen: nondistended, hypoactive bowel sounds, soft, nontender to palpation, surgical scars are well approximated without drainage Extremities: no edema, erythema, or tenderness to palpation, DP pulses 2+ bilaterally Skin: no rashes or lesions, warm and dry Psych: appropri
[2021-04-26] MEDS: SODIUM CHLORIDE 0.9% IV 1,000 ML 75 ML IV CONT (15:21)
[2021-04-26 17:38] LABS: Glucose Point of Care 146 mg/dl (65-105)
[2021-04-26 17:42] LABS: Glucose Point of Care 154 mg/dl (65-105)
[2021-04-26] MEDS: ZOLPIDEM TARTRATE (*CRX) 5 MG TABLET 10 MG PO (20:22)
[2021-04-26] MEDS: EZETIMIBE 10 MG TABLET PO (20:22)
[2021-04-26] MEDS: SENNA/DOCUSATE SODIUM TABLET 2 TAB PO (20:23)
[2021-04-26] MEDS: ENOXAPARIN 100 MG/ML SYRINGE 90 MG SUB-Q (20:23)
[2021-04-26 21:00] LABS: Glucose Point of Care 123 mg/dl (65-105)
[2021-04-27 00:28] VITALS: BP 124/49; PULSE 64; RESP 21; TEMP 36.1; O2SAT 100
[2021-04-27] MEDS: SODIUM CHLORIDE 0.9% IV 1,000 ML 75 ML IV CONT (00:33)
[2021-04-27] MEDS: HYDROcodone/acetaminophen (*CRX) 7.5-325 MG TABLET 1 TAB PO ×2 (02:27→08:38)
[2021-04-27 04:54] VITALS: BP 122/68; PULSE 77; RESP 16; TEMP 36.4; O2SAT 100
[2021-04-27 05:42] LABS: Hematocrit 35.4 % (37.0-47.0); Hemoglobin 11.8 g/dL (12.0-15.0); Mean Corpuscular HGB Conc 33.3 g/dl (32-36); Mean Corpuscular Hemoglobin 28.1 pg (26-34); Mean Corpuscular Volume 84.3 fl (80-100); Mean Platelet Volume 11.7 fl (7.4-10.4); Platelet Count Result 186 k/mm3 (150-375); Red Cell Distribution Width 13.7 % (11.5-14.5); White Blood Count 10.6 K/mm3 (4.5-10.0)
[2021-04-27 06:05] LABS: Alanine Aminotransferase 50 U/L (4-35); Albumin Level 3.9 g/dL (3.5-5.1); Alkaline Phosphatase 63 U/L (38-126); Anion Gap 6 mmol/L (8-16); Aspartate Amino Transferase 55 U/L (14-36); Blood Urea Nitrogen 8 mg/dL (7-17); Calcium 9.4 mg/dL (8.4-10.2); Carbon Dioxide 22 mmol/L (22-30); Chloride 112 mmol/L (98-107); Estimated CRCL calculation 83 ml/min; Estimated Glomerular Filt Rate > 60; Glucose 97 mg/dL (65-105); Potassium 4.2 mmol/L (3.4-5.0); Sodium 140 mmol/L (137-145)
[2021-04-27] MEDS: ACETAMINOPHEN 500 MG TABLET 1000 MG PO (06:31)
[2021-04-27 06:46] LABS: Glucose Point of Care 104 mg/dl (65-105)
--- NOTE | 2021-04-27 07:30 | WPDANESPN ---
Anes - Prog Note Post-Op Date/Time: 04/27/21 07:30 Cardiovascular status: normal Respiratory status: normal Airway patency: baseline Mental status: baseline Post-Op hydration status: normal Vital Signs: Last Vital Signs Temp 36.4 C 04/27/21 04:54 Pulse 77 04/27/21 04:54 Resp 16 04/27/21 04:54 BP 122/68 04/27/21 04:54 Pulse Ox 100 04/27/21 04:54 Pain Score (VAS): 2 I/O: Intake & Output 04/26/21 04/26/21 04/27/21 15:59 23:59 07:59 Intake Total 2887 845 6780 Balance 8938 485 0793 Laboratory Tests 04/27/21 05:33 04/27/21 05:33 04/26/21 04/26/21 04/26/21 05:28 09:41 13:15 WBC RBC Hgb Hct MCV MCH MCHC RDW Plt Count MPV Sodium Potassium Chloride Carbon Dioxide Anion Gap BUN Creatinine Estim Creat Clear Calc Estimated GFR Glucose POC Capillary Glucose 154 H 175 H Calcium Magnesium 1.9 Total Bilirubin AST ALT Alkaline Phosphatase Total Protein Albumin 04/26/21 04/26/21 04/27/21 17:20 20:20 05:33 WBC 10.6 H RBC 4.20 Hgb 11.8 L Hct 35.4 L MCV 84.3 MCH 28.1 MCHC 33.3 RDW 13.7 Plt Count 186 MPV 11.7 H Sodium Potassium Chloride Carbon Dioxide Anion Gap BUN Creatinine Estim Creat Clear Calc Estimated GFR Glucose POC Capillary Glucose 146 H 123 H Calcium Magnesium Total Bilirubin AST ALT Alkaline Phosphatase Total Protein Albumin 04/27/21 04/27/21 05:33 06:44 WBC RBC Hgb Hct MCV MCH MCHC RDW Plt Count MPV Sodium 140 Potassium 4.2 Chloride 112 H Carbon Dioxide 22 Anion Gap 6 L BUN 8 Creatinine 0.70 Estim Creat Clear Calc 83 Estimated GFR > 60 Glucose 97 POC Capillary Glucose 104 Calcium 9.4 Magnesium Total Bilirubin 1.0 AST 55 H ALT 50 H Alkaline Phosphatase 63 Total Protein 7.0 Albumin 3.9 Post-procedural complaints: none Patient Feedback: Patient satisfied with anesthetic care.
[2021-04-27] MEDS: APIXABAN 5 MG TABLET 10 MG PO (07:53)
[2021-04-27] MEDS: FAMOTIDINE 20 MG TABLET 40 MG PO (07:53)
[2021-04-27] MEDS: LOSARTAN POTASSIUM 25 MG TABLET PO (07:54)
[2021-04-27] MEDS: FLUTICASONE PROPIONATE 0.05% NA SPR 16 GM BTL (*BKC) 2 SPRAY NASAL (07:54)
--- NOTE | 2021-04-27 08:48 | PM.PNGS ---
Progress Note: A&P Assessment and Plan (1) Cholelithiasis with acute on chronic cholecystitis without biliary obstruction: Onset Date: ~04/23/21 Code(s): K80.12 - Calculus of gallbladder with acute and chronic cholecystitis without obstruction Status: Acute Assessment and Plan: Patient is responded to antibiotics and is now off these post OR. She will received her last dose of full dose Lovenox last night at 9:00 p.m.. She just received her 1st dose of Eliquis this morning at 8:30 a.m.. Now seems ready to go home from surgical standpoint. Would consider sending her home on about 3 days of pain pills using Lortab 5/325 q.6 hours p.r.n. if needed. (2) Type 2 diabetes mellitus: Onset Date: Unknown Code(s): E11.9 - Type 2 diabetes mellitus without complications Status: Acute Assessment and Plan: Medicine/hospitalist is following her diabetes. Her blood sugars are in pretty good control. Hemoglobin A1c was slightly up at 5.9. (3) Hypertension: Code(s): I10 - Essential (primary) hypertension Status: Acute Assessment and Plan: Patient has continued on her usual home meds and will receive p.r.n. medication IV if needed when NPO for elevated blood pressures. Medicine/hospitalist Service following this. (4) History of pulmonary embolism: Onset Date: Unknown Code(s): Z86.711 - Personal history of pulmonary embolism Status: Acute Assessment and Plan: Appreciate Dr. Tucker's consultation. Will use SCD hose to help prevent DVT around the time of surgery and then resume Eliquis once risks of bleeding are decreased after surgery. Subjective Subjective Date/Time Seen: 04/27/21 08:48 Post Op day: 2 Patient reports: feels better Interval history: Patient lying in bed when I entered the room. States she tolerated a soft diet this morning with some scrambled eggs. Did have a small bowel movement last evening and is passing gas. No nausea or vomiting. Review of Systems Constitutional: Constitutional: Reports as per HPI, Reports no additional constitutional complaints and Denies headache(s) Eyes: Eyes: Denies loss of vision and Denies eye pain ENT: Reports Normal hearing present, Denies change in voice, Denies dizziness, Denies headache(s) and Reports other (Mucous Membranes moist.) Cardiovascular: Cardiovascular: Denies chest pain and Denies dyspnea Respiratory: Respiratory: Denies pain on inspiration, Denies dyspnea and Denies wheezing Gastrointestinal: Gastrointestinal: Denies diarrhea, Denies nausea and Denies vomiting Comments: Mild incisional pain with no nausea Genitourinary: Genitourinary: Reports no additional female genitourinary complaints, Denies sexual dysfunction, Denies flank pain and Denies vaginal discharge Musculoskeletal: Musculoskeletal: Denies back pain, Denies arthralgias and Reports other (No calf swelling or edema) Integumentary/Breasts: Skin/Breast: Reports system reviewed and no additional complaints, except as docu Neurologic: Reports Normal hearing present, Denies dizziness, Denies headache(s), Denies loss of vision and Denies memory loss Psychiatric: Psychiatric: Reports no additional psychiatric complaints, Denies memory loss and Denies panic attacks Hematologic/Lymphatic: Hematologic/Lymphatic: Reports no additional hematologic/lymphatic complaints Allergic/Immunologic: Allergic/Immunologic: Denies wheezing Exam Const: General: cooperative, no acute distress, well developed, alert and awake Nutritional Appearance: well nourished Orientation/consciousness: patient oriented x3 Limitations: no limitations HENMT: Head: normal to inspection, normocephalic and atraumatic Ears: hearing grossly normal bilaterally General nose exam: Normal external nose present Face and sinus: normal facial exam Mouth: Yes Normal oral and palatal mucosa present, Yes tongue normal and Yes moist mucous membranes Eyes: General: appea
--- NOTE | 2021-04-27 10:44 | PM.DS ---
DS: Admitting Diagnosis Admitting Diagnosis Admitting Diagnosis: Acute on chronic cholecystitis DS: Discharge Diagnosis Discharge Diagnosis (1) Cholelithiasis with acute on chronic cholecystitis without biliary obstruction: Onset Date: ~04/23/21 Code(s): K80.12 - Calculus of gallbladder with acute and chronic cholecystitis without obstruction Status: Acute Assessment and Plan: CT a/p showed probable acute cholecystitis. RUQ US showed contracted gallbladder with gallstones and wall thickening. She underwent laparoscopic cholecystectomy performed by Dr. Madison on 04/26/21. She tolerated the procedure well and pain was well controlled. She was able to tolerate a low fat diet. She will need to follow up with Dr. Madison in 2 weeks as an outpatient. (2) Shortness of breath: Code(s): R06.02 - Shortness of breath Status: Acute Assessment and Plan: Resolved. Likely related to pain due to cholecystitis as her pain seems to be worse with deep inspiration. She is on long-term apixaban for history of recurrent pulmonary emboli and V/Q scan at presentation continued to show high probability exam though no interval change, likely due to chronic occlusion of the right upper lobe pulmonary arteries. Incidentally a possible pulmonary AVM was also noted on her CT of the abdomen and pelvis, the significance of such not clear at this time. She was seen in consultation by outgoing inspector Dr. Tucker with whom she is established. Continue Eliquis and follow up as an outpatient. (3) Renal cyst: Code(s): N28.1 - Cyst of kidney, acquired Status: Acute Assessment and Plan: CT showed renal cysts and hemorrhagic cyst, cancer not excludable. Discussed recommendations for non emergent follow-up with an abdominal MRI with and without contrast. Follow up as an outpatient. 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 Pulmonology consultation as above. (5) Tobacco dependence: Code(s): F17.200 - Nicotine dependence, unspecified, uncomplicated Status: Acute Assessment and Plan: Smoking cessation is imperative and was discussed. She declined the need for a nicotine patch. She was educated on smoking cessation and she verbalized understanding. DS: Summary Hospital Course Reason for hospitalization: Cholecystitis Hospital Course: Date of admission: 04/24/2021 Date of discharge: 04/27/2021 Dolly Lucas is a 55-year-old female with a history of pulmonary embolism on chronic anticoagulation, hypertension, hyperlipidemia, thyroid nodule, type 2 diabetes mellitus, and tobacco dependence presented to the emergency department on 04/24/2021 with complaints of right-sided pain and shortness of breath. Upon presentation to the emergency department, her blood pressure was slightly elevated with additional vital signs stable, BMP unremarkable, troponin negative, and CT abdomen/pelvis showed probable acute cholecystitis. She was admitted to the hospitalist service for further evaluation management seen in consultation by General surgery. Please see above for further details. She underwent laparoscopic cholecystectomy and tolerated procedure well. She was feeling very well after and tolerating a low-fat diet. She was eager for discharge. Given her overall improvement, she was determined to no longer require inpatient care and was felt to be stable for discharge. We discussed worrisome signs and symptoms for which to return and she was educated on her medications. She was discharged in hemodynamically stable condition on 04/27/2021. Status at Discharge Functional status at discharge: independent ambulation Overall status at discharge: patient is progressing back to baseline Time S
== END 2021-04-27 11:05 | disposition home or self-care (01) ==
LOC: ANHED 08:23 → ANH2MED 09:17
PROVIDERS: Physician Assistant; Surgery; Admitting Provider Internal Medicine; Emergency Provider General Practice; PCP Internal Medicine; Visit Provider Physician Assistant
PROC: 0FT44ZZ Resection of Gallbladder, Percutaneous Endoscopic Approach (ICD-10-PCS; CPT 47562; principal; 2021-04-26 07:30)
DX: K80.12 Calculus of gallbladder with acute and chronic cholecystitis without obstruction (principal); K82.8 Other specified diseases of gallbladder; N28.1 Cyst of kidney, acquired; E11.9 Type 2 diabetes mellitus without complications; E78.5 Hyperlipidemia, unspecified; F17.210 Nicotine dependence, cigarettes, uncomplicated; I10 Essential (primary) hypertension; J45.909 Unspecified asthma, uncomplicated; R06.02 Shortness of breath; R91.8 Other nonspecific abnormal finding of lung field; Z86.711 Personal history of pulmonary embolism; Z79.01 Long term (current) use of anticoagulants; Z79.84 Long term (current) use of oral hypoglycemic drugs
CPT/HCPCS: 47562; 36415; 71046; 74176; 76705; 78580; 80048; 80053; 80076; 81003; 82948; 83036; 83690; 83735; 83880; 84484; 85014; 85018; 85025; 85027; 85380; 85610; 85730; 86850; 86900; 86901; 88304; 93005; 94640; 96360; 96361; 96365; 96372; 96374; 96375; 96376; 99285; A9270; A9540; G0378; G0379; J0131; J1100; J1650; J1885; J2270; J2405; J2550; J2704; J2710; J3010; J7030; J7042; J7120; Q9966

== ENCOUNTER 2021-09-20 10:02 | Emergency (ER) | payer OTHER, SELFPAY ==
--- NOTE | ~2021-09-20 | XR_ITS ---
EXAMINATION: XR chest 2V DATE: 09/20/2021 10:50 INDICATION: Shortness of breath TECHNIQUE: PA and lateral views of the chest were obtained. COMPARISON: Chest radiograph dated 05/18/2020 and 04/24/[address] dated 05/19/2020. FINDINGS: Increased opacities in the right suprahilar region which could represent atelectasis and/or pneumonia . Chronic mild volume loss in right upper lobe with cephalad retraction of the minor fissure. Pulmona ry vascular congestion without jolie pulmonary edema. No pleural effusion or pneumothorax. Heart size is normal. Enlargement of the central pulmonary arteries consistent with pulmonary arterial hyperten ciarra. Cholecystectomy clips in the right upper quadrant. Mild midthoracic spondylosis. IMPRESSION: 1. Mild right suprahilar opacities which could represent atelectasis and/or pneumonia. 2. Enlargement of the central pulmonary arteries consistent with pulmonary arterial hypertension. Reviewed, dictated and finalized at location A. ING MACHINE OPERATOR IMPRESSION: 1. Mild right suprahilar opacities which could represent atelectasis and/or pne umonia. 2. Enlargement of the central pulmonary arteries consistent with pulmonary sharon rial hypertension.
[2021-09-20 10:12] VITALS: BP 159/92; PULSE 85; RESP 16; TEMP 36.1; O2SAT 98
--- NOTE | 2021-09-20 10:12 | ECG_ITS ---
Measurements Intervals [place] Rate: 83 P: 120 [place]: 155 QRS: 153 QRSD: 77 T: 114 QT: 358 QTc: 423 Interpretive Statements SINUS RHYTHM ARM LEADS REVERSED ATYPICAL ECG Electronically Signed On 09-20-2021 13:25:21 HOSPITAL MEDICAL ASSISTANT by Parish Finney D.O.
[2021-09-20 10:31] LABS: Basophils Percent Auto 0.2 % (0.2-1.2); Eosinophils Absolute Auto 0.1 K/mm3 (0-0.3); Eosinophils Percent Auto 0.7 % (0-4.4); Hematocrit 35.9 % (37.0-47.0); Hemoglobin 12.1 g/dL (12.0-15.0); Immature Granulocyte Absolute 0.03 K/mm3 (0.00-0.031); Immature Granulocyte Percent A 0.3 % (0-0.5); Lymphocytes Absolute Auto 1.57 K/mm3 (0.9-3.2); Lymphocytes Percent Auto 15.4 % (18.3-44.2); Mean Corpuscular HGB Conc 33.7 g/dl (32-36); Mean Corpuscular Hemoglobin 27.9 pg (26-34); Mean Corpuscular Volume 82.7 fl (80-100); Mean Platelet Volume 11.8 fl (7.4-10.4); Monocytes Absolute Auto 0.4 K/mm3 (0.1-0.6); Monocytes Percent Auto 4.3 % (2.6-8.5); Neutrophils Absolute Auto 8.1 K/mm3 (1.3-6.7); Neutrophils Percent Auto 79.1 % (45.5-73.1); Platelet Count Result 207 k/mm3 (150-375); Red Blood Count 4.34 M/mm3 (4.2-5.4); Red Cell Distribution Width 13.5 % (11.5-14.5); White Blood Count 10.2 K/mm3 (4.5-10.0)
[2021-09-20 10:46] LABS: Anion Gap 4 mmol/L (8-16); Blood Urea Nitrogen 14 mg/dL (7-17); Calcium 9.3 mg/dL (8.4-10.2); Carbon Dioxide 28 mmol/L (22-30); Chloride 109 mmol/L (98-107); Estimated CRCL calculation 84 ml/min; Estimated Glomerular Filt Rate > 60; Glucose 112 mg/dL (65-110); Potassium 3.8 mmol/L (3.4-5.0); Sodium 141 mmol/L (137-145)
[2021-09-20 11:44] VITALS: BP 116/95; PULSE 88; RESP 17; O2SAT 100
--- NOTE | 2021-09-20 13:32 | ED.SOB ---
HPI - SOB/Dyspnea General Chief Complaint: Shortness of Breath/Dyspnea Stated Complaint: sob Time Seen by Provider: 09/20/21 11:41 Source: patient Mode of arrival: ambulatory Limitations: no limitations History of Present Illness HPI Narrative: 55-year-old with a history of hypertension, hyperlipidemia, PE on Eliquis here with complaints of cough, shortness of breath since last night. She states that the cough is productive yellowish to bleeding sputum production she denies any fever or chills no history of nausea or vomiting. She states the pain is mostly in the left upper part of her chest. MD elicited complaint: shortness of breath and cough Pertinent past history: PE Timing: constant Severity: mild Exacerbating factors: nothing Relieving factors: nothing Related Data Home Medications Medication Instructions Recorded Confirmed gabapentin [Neurontin] 300 mg PO TID 05/18/20 09/09/21 hydrochlorothiazide 25 mg PO DAILY 05/18/20 09/09/21 losartan 25 mg PO DAILY 05/18/20 09/09/21 zolpidem 10 mg PO HS PRN 05/18/20 09/09/21 lorazepam 0.5 mg tablet 0.5 mg PO DAILY PRN 06/06/20 09/09/21 cyclobenzaprine 10 mg PO DAILY PRN 04/24/21 09/09/21 ezetimibe [Zetia] 10 mg PO HS 04/24/21 09/09/21 famotidine 40 mg PO DAILY 04/24/21 09/09/21 fluticasone propionate 2 spray INTRANASAL DAILY 04/24/21 09/09/21 metformin 500 mg PO BID 04/24/21 09/09/21 ondansetron 4 mg PO Q4-6H PRN 04/24/21 09/09/21 Eliquis 5 mg PO BID 04/27/21 09/09/21 Allergies Allergy/AdvReac Type Severity Reaction Status Date / Time iohexol Allergy Anaphylaxis Verified 09/09/21 14:36 [From contrast - CT, X-RAY] levofloxacin [From Levaquin] Allergy Anaphylaxis Verified 09/09/21 14:36 Hzdggeo-AIU-VzC Reductase Allergy Anaphylaxis Verified 09/09/21 14:36 Inhibitor [Zexhhxb-Cjm-Fwb Reductase Inhibitor] tramadol Allergy Anaphylaxis Verified 09/09/21 14:36 Review of Systems Review of Systems: All systems reviewed & are unremarkable except as noted in HPI and below Constitutional: Constitutional: Reports no additional constitutional complaints Eyes: Eyes: Reports no additional eye complaints ENT: Reports system reviewed and no additional complaints, except as documented Cardiovascular: Cardiovascular: Reports no additional cardiovascular complaints Respiratory: Respiratory: Reports as per HPI Gastrointestinal: Gastrointestinal: Reports no additional gastrointestinal complaints Integumentary/Breasts: Skin/Breast: Reports system reviewed and no additional complaints, except as docu Neurologic: Reports system reviewed and no additional complaints, except as documented PMFSH Past Medical History Medical History Asthma Chronic pain syndrome Low back and knees. History of pulmonary embolism Recurrent PEs in 1988, 2007, and 2019. On long-term apixaban. Hyperlipidemia Hypertension Nephrolithiasis Osteoarthritis Thyroid nodule Tobacco dependence Type 2 diabetes mellitus (Unknown) Surgical History Surgical History History of 3 sections History of hysterectomy (2006) History of laparoscopic cholecystectomy 04/26/21 Family History Family History Father Acute pulmonary edema Hypertension Mother Breast cancer Social History Social History Social History: The patient lives alone in [place]. She has had 3 children. On disability. Smokes 1 pack of cigarettes per day and has for years. No alcohol or illicit substance abuse. She designates her sister, Nika Crisostomo or her Jillian Grady as her surrogate decision makers and she wishes to be a full code. Smoking status: Current every day smoker Tobacco type: cigarettes Exam Narrative: GENERAL: Well-appearing, well-nourished, and in no acute distress.
[2021-09-20 14:14] VITALS: O2SAT 100
[2021-09-20 14:15] VITALS: BP 162/71; PULSE 81; RESP 16; O2SAT 100
== END 2021-09-20 14:16 | disposition home or self-care (01) ==
PROVIDERS: Emergency Provider Family Medicine; PCP Internal Medicine
DX: J18.9 Pneumonia, unspecified organism (principal); R07.9 Chest pain, unspecified; E78.5 Hyperlipidemia, unspecified; I10 Essential (primary) hypertension; J45.909 Unspecified asthma, uncomplicated; E11.9 Type 2 diabetes mellitus without complications; M19.90 Unspecified osteoarthritis, unspecified site; G89.4 Chronic pain syndrome; Z86.711 Personal history of pulmonary embolism; Z79.01 Long term (current) use of anticoagulants; Z79.84 Long term (current) use of oral hypoglycemic drugs; Z87.442 Personal history of urinary calculi
CPT/HCPCS: 36415; 71046; 80048; 85025; 93005; 99284

== ENCOUNTER 2021-09-21 16:16 | Outpatient (CLI) | payer OTHER, SELFPAY ==
--- NOTE | ~2021-09-21 | CT_ITS ---
EXAMINATION: CTA chest PE protocol EXAM DATE: 09/21/2021 17:14 INDICATION: Chest pain. History of pneumonia. TECHNIQUE: Spiral CTA of the chest (pulmonary arteries) was performed with 100 cc Omnipaque 350 intr avenous contrast injection. Images were acquired during the pulmonary arterial phase. Coronal maxi mum intensity projection 3D-reconstructions were created by the technologist on dedicated workstation . Axial, coronal and sagittal reformatted images were reviewed. The dose-length product (DLP) for t his examination was 531.37 mGy-cm. The exposure was tailored according to patient size (auto mA exp osure control), and iterative reconstruction (ASIR) was used as additional dose reduction technique. Comparison is made to prior examination from 05/19/2020. FINDINGS: There are no pulmonary emboli in the 1st through 3rd order (central and interlobar) pulmon jose arteries. Some loss of attenuation in the left basilar segmental pulmonary from respiratory grupo on, these regions not confidently evaluated. No Intraluminal filling defects identified. Previously seen suspected right upper lobe pulmonary embolus has resolved. No thoracic aortic dissection. There is suspicion of right middle lobe pulmonary arteriovenous malformation. Again there is mediasti nal lymphadenopathy, including subcarinal lymph nodes which have peripheral calcification. There is i nfiltrative appearing right hilar soft tissue density, mild bilateral hilar lymphadenopathy. Differen tial diagnosis includes chronic infectious or inflammatory process, sarcoidosis, lymphangitic carcino matosis. Findings may have progressed slightly compared to May 2020 making benign processes more lik devora (malignant carcinomatosis would have likely progressed more rapidly). There are no pleural or pericardial effusions. Tracheobronchial tree is patent. There is no pneum othorax. Heart normal in size. No evidence of coronary arterial calcification. Upper abdomen is unremarkable. The bones are unremarkable. IMPRESSION: 1. Resolution of previously seen pulmonary embolism. 2. Suspicion of right middle lobe pulmonary AVM. 3. Chronic mediastinal and hilar lymphadenopathy, right hilar infiltrative soft tissue and reticular nodular opacities. Differential diagnosis includes sarcoidosis, other inflammatory or chronic infect ious process, less likely lymphangitic carcinomatosis. Please clinically correlate. Reviewed, dictated and finalized at location A. INSTALLER IMPRESSION: 1. Resolution of previously seen pulmonary embolism. 2. Suspicion of right middle lobe pulmonary AVM. 3. Chronic mediastinal and hilar lymphadenopathy, right hilar infiltrative sof t tissue and reticular nodular opacities. Differential diagnosis includes sarco idosis, other inflammatory or chronic infectious process, less likely lymphangi tic carcinomatosis. Please clinically correlate.
[2021-09-21 17:03] LABS: Estimated Glomerular Filt Rate > 60
== END 2021-09-21 16:17 | disposition home or self-care (01) ==
LOC: ANHIMG 16:18
PROVIDERS: PCP Internal Medicine; Visit Provider Family Medicine
DX: I26.99 Other pulmonary embolism without acute cor pulmonale (principal)
CPT/HCPCS: 71275; Q9967

== ENCOUNTER 2021-12-14 14:49 | Outpatient (CLI) | payer OTHER, SELFPAY ==
--- NOTE | 2021-12-14 14:53 | ECHO_ITS ---
Patient Info Name: Dolly Lucas Age: 55 years : 1965 Gender: Female Ht: 63 in Wt: 202 lbs BSA: 2.06 m2 HR: 100 bpm BP: 156 / 105 mmHg Heart Rhythm: Sinus Arrhythmia Technical Quality: Fair Exam Date: 12/14/2021 2:59 PM Exam Location: [facility] Patient Status: Outpatient Admit Date: 12/14/2021 Staff Ordering Physician: Fay Mims PA-C Building Analyst/Supervisor: Deirdre Mijares RDCS Attending Provider: Fay Mims PA-C Exam Type: CA echo limited w bubble study Study Info Indications - Congenital pulmonary arteriovenous malformation Complete two-dimensional, color flow and Doppler transthoracic echocardiogram is performed. Summary 1. Limited echocardiogram to assess for atrial septal defect or patent foramen ovale. 2. Agitated saline injection with and without valsalva maneuver opacified the right sided cardiac chambers with no shunt to left sided cardiac chambers. 3. Intact interatrial septum visualized by 2D, color flow and agitated saline imaging. Atrial Septum Limited echocardiogram to assess for atrial septal defect or patent foramen ovale. Agitated saline injection with and without valsalva maneuver opacified the right sided cardiac chambers with no shunt to left sided cardiac chambers. Intact interatrial septum visualized by 2D, color flow and agitated saline imaging. Ventricles Name Value Normal LV Dimensions 2D/MM IVS Diastolic Thickness (2D) 1.0 cm 0.6-1.0 LVID Diastole (2D) 4.1 cm 3.8-5.2 LVIW Diastolic Thickness (2D) 0.9 cm 0.6-0.9 LVID Systole (2D) 2.5 cm 2.2-3.5 LV Mass (2D Cubed) 123.74 g 67.00-162.00 LV Mass Index (2D Cubed) 60 g/m2 43-95 Relative Wall Thickness (2D) 0.47 LV Fractional Shortening/Ejection Fraction 2D/MM LV Fractional Shortening (2D) 38 % 27-45 LV EF (2D Teicholz) 69 % 54-74 LV Diastolic Volume (4C MOD) 34 ml LV EF (4C MOD) 68 % LV Diastolic Volume (2C MOD) 32 ml LV EF (2C MOD) 65 % LV Diastolic Volume (BP MOD) 33 ml 46-106 LV Diastolic Volume Index (BP MOD) 16 ml/m2 29-61 LV Systolic Volume (BP MOD) 12 ml 14-42 LV Systolic Volume Index (BP MOD) 6 ml/m2 8-24 LV EF (BP MOD) 65 % 54-74 LV Diastolic Length (4C) 6.3 cm LV Systolic Length (4C) 4.5 cm LV Stroke Volume (4C MOD) 23 ml Report Signatures
== END 2021-12-14 14:50 | disposition home or self-care (01) ==
PROVIDERS: PCP Internal Medicine; Visit Provider Physician Assistant
DX: Q25.72 Congenital pulmonary arteriovenous malformation (principal); R06.02 Shortness of breath; Z86.711 Personal history of pulmonary embolism
CPT/HCPCS: 93308; 96375

== ENCOUNTER 2022-02-03 06:48 | Outpatient (CLI) | payer OTHER, SELFPAY ==
[2022-02-03 07:36] LABS: Basophils Percent Auto 0.3 % (0.2-1.2); Eosinophils Absolute Auto 0.1 K/mm3 (0-0.3); Eosinophils Percent Auto 1.2 % (0-4.4); Hematocrit 37.1 % (37.0-47.0); Hemoglobin 12.5 g/dL (12.0-15.0); Immature Granulocyte Absolute 0.02 K/mm3 (0.00-0.031); Immature Granulocyte Percent A 0.3 % (0-0.5); Lymphocytes Absolute Auto 1.93 K/mm3 (0.9-3.2); Lymphocytes Percent Auto 27.9 % (18.3-44.2); Mean Corpuscular HGB Conc 33.7 g/dl (32-36); Mean Corpuscular Hemoglobin 27.8 pg (26-34); Mean Corpuscular Volume 82.4 fl (80-100); Mean Platelet Volume 11.3 fl (7.4-10.4); Monocytes Absolute Auto 0.4 K/mm3 (0.1-0.6); Monocytes Percent Auto 5.5 % (2.6-8.5); Neutrophils Absolute Auto 4.5 K/mm3 (1.3-6.7); Neutrophils Percent Auto 64.8 % (45.5-73.1); Platelet Count Result 229 k/mm3 (150-375); Red Cell Distribution Width 13.2 % (11.5-14.5); White Blood Count 6.9 K/mm3 (4.5-10.0)
[2022-02-03 07:44] LABS: Prothrombin Time 12.9 Seconds (11.1-14.7)
[2022-02-03 07:49] LABS: Alanine Aminotransferase 17 U/L (4-35); Albumin Level 4.2 g/dL (3.5-5.1); Alkaline Phosphatase 90 U/L (38-126); Anion Gap 4 mmol/L (8-16); Aspartate Amino Transferase 22 U/L (14-36); Bilirubin,Total 0.6 mg/dL (0.2-1.3); Blood Urea Nitrogen 11 mg/dL (7-17); Calcium 9.2 mg/dL (8.4-10.2); Carbon Dioxide 29 mmol/L (22-30); Chloride 106 mmol/L (98-107); Cholesterol 221 mg/dL (0-200); Estimated Glomerular Filt Rate > 60; Glucose 120 mg/dL (65-110); HDL Direct 49 mg/dL; Potassium 3.6 mmol/L (3.4-5.0); Sodium 139 mmol/L (137-145); Triglycerides 98 mg/dL (<150)
[2022-02-03 08:00] LABS: LDL Cholesterol Direct 110 mg/dL
[2022-02-07 10:41] LABS: Vitamin D 1,25 (OH)2 Total 57 pg/mL (18-72); Vitamin D2 1,25 (OH)2 <8 pg/mL; Vitamin D3 1,25 (OH)2 57 pg/mL
== END 2022-02-03 06:49 | disposition home or self-care (01) ==
PROVIDERS: PCP Internal Medicine; Visit Provider Internal Medicine
DX: I10 Essential (primary) hypertension (principal); E11.9 Type 2 diabetes mellitus without complications; Z86.718 Personal history of other venous thrombosis and embolism; Z13.89 Encounter for screening for other disorder; Z13.220 Encounter for screening for lipoid disorders; E55.9 Vitamin D deficiency, unspecified
CPT/HCPCS: 36415; 80053; 80061; 82652; 85025; 85610

== ENCOUNTER 2022-03-03 10:03 | Outpatient (CLI) | payer OTHER, SELFPAY ==
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
== END 2022-03-03 10:04 | disposition home or self-care (01) ==
PROVIDERS: PCP Internal Medicine
DX: R07.9 Chest pain, unspecified (principal); M25.519 Pain in unspecified shoulder; M54.50 Low back pain, unspecified; M47.896 Other spondylosis, lumbar region
CPT/HCPCS: 71046; 72100; 73030

== ENCOUNTER 2022-03-29 09:42 | Emergency (ER) | payer OTHER, SELFPAY ==
--- NOTE | ~2022-03-29 | XR_ITS ---
EXAMINATION: XR chest 2V DATE: 03/29/2022 10:22 INDICATION: Cough and shortness of breath TECHNIQUE: PA and lateral views of the chest are obtained. COMPARISON: None available FINDINGS: The lungs are free of acute opacities. There is enlargement of the main and central pulmona ry arteries, consistent with pulmonary hypertension. There is no pleural effusion or pneumothorax. Th e cardiomediastinal silhouette is normal. Surgical clips in the right upper quadrant are likely from prior cholecystectomy. There is mild thoracic spondylosis. IMPRESSION: 1. No acute cardiopulmonary abnormality. 2. Findings consistent with pulmonary hypertension. Reviewed, dictated and finalized at location A.
[2022-03-29 10:00] VITALS: BP 157/92; PULSE 85; RESP 16; TEMP 36.3; O2SAT 99
[2022-03-29 11:00] VITALS: BP 155/87; PULSE 84; RESP 20; TEMP 36.7; O2SAT 98
--- NOTE | 2022-03-29 11:34 | ED.URI ---
HPI - URI/Sore Throat General Chief Complaint: Upper Respiratory Infection Stated Complaint: Cough, SOB Time Seen by Provider: 03/29/22 10:56 Source: patient History of Present Illness HPI Narrative: Patient with a history of asthma presents with cough, congestion, shortness of breath. Symptoms present for the past 2 days. She is attempted ockh-atd-tdkaplk medications as well as her DuoNeb therapies she continues to have a productive cough was concerned her symptoms are not improving so she came to the ER for further evaluation. Reports diffuse chest pain related to her cough denies fevers chills reports some sick attacks and thinks she picked up an infection from a family member. Denies any abdominal pain, nausea, vomiting. Related Data Home Medications Medication Instructions Recorded Confirmed gabapentin [Neurontin] 300 mg PO TID 05/18/20 09/09/21 hydrochlorothiazide 25 mg PO DAILY 05/18/20 09/09/21 losartan 25 mg PO DAILY 05/18/20 09/09/21 zolpidem 10 mg PO HS PRN 05/18/20 09/09/21 lorazepam 0.5 mg tablet 0.5 mg PO DAILY PRN 06/06/20 09/09/21 cyclobenzaprine 10 mg PO DAILY PRN 04/24/21 09/09/21 ezetimibe [Zetia] 10 mg PO HS 04/24/21 09/09/21 famotidine 40 mg PO DAILY 04/24/21 09/09/21 fluticasone propionate 2 spray INTRANASAL DAILY 04/24/21 09/09/21 metformin 500 mg PO BID 04/24/21 09/09/21 ondansetron 4 mg PO Q4-6H PRN 04/24/21 09/09/21 Eliquis 5 mg PO BID 04/27/21 09/09/21 Allergies Allergy/AdvReac Type Severity Reaction Status Date / Time iohexol Allergy Anaphylaxis Verified 03/29/22 11:20 [From contrast - CT, X-RAY] levofloxacin [From Levaquin] Allergy Anaphylaxis Verified 03/29/22 11:20 Fzkktot-ZJP-KpL Reductase Allergy Anaphylaxis Verified 03/29/22 11:20 Inhibitor [Jqivdbr-Wgk-Uvu Reductase Inhibitor] tramadol Allergy Anaphylaxis Verified 03/29/22 11:20 Review of Systems Review of Systems: CONSTITUTIONAL: Denies fever, chills, or sweats. EYES: Denies visual changes, redness, or discharge. ENT: Reports congestion runny nose CARDIOVASCULAR: Denies chest pain, palpitations, or edema. RESPIRATORY: Reports cough and shortness of breath GASTROINTESTINAL: Denies abdominal pain, nausea, vomiting, or diarrhea. GENITOURINARY: Denies dysuria or hematuria. SKIN: Denies rash or itching. MUSCULOSKELETAL: Denies back pain, joint pain, or myalgia. NEUROLOGIC: Denies headache, numbness, dizziness, or weakness. PSYCHIATRIC: Denies anxiety or depression. All systems reviewed & are unremarkable except as noted in HPI and below PMFSH Past Medical History Medical History Asthma Chronic pain syndrome Low back and knees. History of pulmonary embolism Recurrent PEs in 1988, 2007, and 2019. On long-term apixaban. Hyperlipidemia Hypertension Nephrolithiasis Osteoarthritis Thyroid nodule Tobacco dependence Type 2 diabetes mellitus (Unknown) Surgical History Surgical History History of 3 sections History of hysterectomy (2006) History of laparoscopic cholecystectomy 04/26/21 Family History Family History Father Acute pulmonary edema Hypertension Mother Breast cancer Social History Social History Social History: The patient lives alone in [place]. She has had 3 children. On disability. Smokes 1 pack of cigarettes per day and has for years. No alcohol or illicit substance abuse. She designates her sister, Nika Crisostomo or her Jillian Grady as her surrogate decision makers and she wishes to be a full code. Smoking packs per day: 1 Smoking cigarettes per day: 20.0 Years smoked: 20 Smoking pack-years: 20.00 Smoking status: Current every day smoker Tobacco type: cigarettes Exam Narrative: GENERAL: Well-appearing, well-nourished, and in no ac
[2022-03-29 12:16] LABS: SARS-CoV-2 RNA PCR Positive
== END 2022-03-30 03:03 | disposition home or self-care (01) ==
LOC: ANHED 12:01
PROVIDERS: Emergency Provider Emergency Medicine; PCP Internal Medicine
DX: J45.909 Unspecified asthma, uncomplicated (principal); Z20.822 Contact with and (suspected) exposure to COVID-19; E78.5 Hyperlipidemia, unspecified; I10 Essential (primary) hypertension; E11.9 Type 2 diabetes mellitus without complications; G89.4 Chronic pain syndrome; M19.90 Unspecified osteoarthritis, unspecified site; Z87.442 Personal history of urinary calculi; Z79.01 Long term (current) use of anticoagulants; Z79.84 Long term (current) use of oral hypoglycemic drugs; F17.210 Nicotine dependence, cigarettes, uncomplicated; R91.8 Other nonspecific abnormal finding of lung field
CPT/HCPCS: 71046; 87804; 99283; C9803; U0003; U0005

== ENCOUNTER 2022-09-09 15:24 | Outpatient (CLI) | payer OTHER, SELFPAY ==
--- NOTE | ~2022-09-09 | CT_ITS ---
EXAMINATION: CT diagnostic chest wo con DATE: 09/09/2022 15:43 INDICATION: Multiple pulmonary nodules TECHNIQUE: Computed tomography (CT) of the chest was performed without intravenous contrast. The dose -length product (DLP) was 154.05 mGy-cm. Automated exposure control and iterative reconstruction tech nique were employed. COMPARISON: 09/21/2021 FINDINGS: There are patchy groundglass opacities of the lungs with interval improvement comparison ex amination. No pleural effusion or pneumothorax. There is a stable subpleural nodule and a stable fiss ural lymph node near the left lung apex. There is chronic dilation adjacent serpiginous vascular stru ctures in the right middle lobe, suspicious for pulmonary arteriovenous malformation. There is chroni c calcified bilateral hilar and mediastinal lymphadenopathy without significant change. There are chr onic mild narrowing of the mainstem bronchi. Nonobstructing stones are noted in the kidneys. The hear t size is normal. IMPRESSION: 1. Chronic calcified bilateral hilar and mediastinal lymphadenopathy. Differential is as previously d escribed but would also include fibrosing mediastinitis. 2. Stable pulmonary nodules. Reviewed, dictated and finalized at location A. IMPRESSION: 1. Chronic calcified bilateral hilar and mediastinal lymphadenopathy. Different ial is as previously described but would also include fibrosing mediastinitis. 2. Stable pulmonary nodules.
== END 2022-09-09 15:25 | disposition home or self-care (01) ==
LOC: ANHIMG 15:28
PROVIDERS: PCP Internal Medicine; Visit Provider Internal Medicine Critical Care Medicine
DX: R91.8 Other nonspecific abnormal finding of lung field (principal); R59.0 Localized enlarged lymph nodes
CPT/HCPCS: 71250

== ENCOUNTER 2023-01-03 08:45 | Outpatient (CLI) | payer OTHER, SELFPAY ==
--- NOTE | ~2023-01-03 | XR_ITS ---
XR knee RT min 4V 01/03/2023 09:11 Indication: Chronic right knee pain Procedure: 4 views right knee Comparison: No prior studies for comparison. Findings: There is mild-moderate tricompartment osteoarthritis of the right knee. There is significan t joint space loss involving the medial compartment. No fracture, subluxation or dislocation. No sign ificant joint effusion. No foreign bodies. Impression: 1: Mild-moderate tricompartment osteoarthritis of the right knee. Reviewed, dictated and finalized at location B. CUTTER Impression: 1: Mild-moderate tricompartment osteoarthritis of the right knee.
--- NOTE | ~2023-01-03 | XR_ITS ---
XR knee LT min 4V 01/03/2023 09:11 Indication: Left knee pain Procedure: 4 views left knee Comparison: No prior studies for comparison. Findings: There is mild tricompartment osteoarthritis of the left knee. No fracture, subluxation or d islocation. No significant joint effusion. No foreign bodies. Impression: 1: Mild tricompartment osteoarthritis of the left knee. Reviewed, dictated and finalized at location B. E COMMERCE ANALYST Impression: 1: Mild tricompartment osteoarthritis of the left knee.
== END 2023-01-03 08:46 | disposition home or self-care (01) ==
PROVIDERS: PCP Internal Medicine; Visit Provider Internal Medicine
DX: M17.0 Bilateral primary osteoarthritis of knee (principal)
CPT/HCPCS: 73564

== ENCOUNTER 2023-05-09 07:29 | Emergency (ER) | payer OTHER, SELFPAY ==
[2023-05-09] VITALS (13 sets, daily range): BP systolic 121–162; BP diastolic 70–91; PULSE 85–98; RESP 16–24; TEMP 37.2; O2SAT 98–100
--- NOTE | ~2023-05-09 | XR_ITS ---
Clinical Indication: Shortness of breath PA and lateral views of the chest: Comparison: 03/29/2022 Findings: Possible minimal fluid in the right minor fissure versus right midlung scarring. Lungs are otherwise clear. Cardiomediastinal silhouette is within normal limits. Stable mild prominence of the hilar regions. Bones and soft tissues are unremarkable. Impression: Minimal fluid in right minor fissure versus linear right midlung scarring. No other significant findings. Reviewed, dictated and finalized at location . Impression: Minimal fluid in right minor fissure versus linear right midlung scarring. No other significant findings.
--- NOTE | 2023-05-09 07:45 | ECG_ITS ---
Measurements Intervals [place] Rate: 84 P: 62 AL: 156 QRS: 49 QRSD: 80 T: 75 QT: 339 QTc: 402 Interpretive Statements SINUS RHYTHM NORMAL ECG COMPARED TO ECG 09/20/2021 10:16:02 NO SIGNIFICANT CHANGES Electronically Signed On 05-09-2023 10:41:01 CDT by Ar Salazar M.D.
[2023-05-09] MEDS: IPRATROPIUM BR 0.02% INH SOLN 0.5 MG/2.5 ML VIAL INHALATION (08:08)
[2023-05-09] MEDS: ALBUTEROL SULFATE NEB 2.5 MG/3 ML INH INHALATION (08:08)
[2023-05-09 08:12] LABS: Basophils Percent Auto 0.2 % (0.2-1.2); Hematocrit 38.3 % (37.0-47.0); Hemoglobin 12.8 g/dL (12.0-15.0); Immature Granulocyte Absolute 0.04 K/mm3 (0.00-0.031); Immature Granulocyte Percent A 0.4 % (0-0.5); Lymphocytes Absolute Auto 0.63 K/mm3 (0.9-3.2); Lymphocytes Percent Auto 6.8 % (18.3-44.2); Mean Corpuscular HGB Conc 33.4 g/dl (32-36); Mean Corpuscular Hemoglobin 28.1 pg (26-34); Mean Corpuscular Volume 84.2 fl (80-100); Mean Platelet Volume 11.2 fl (7.4-10.4); Monocytes Absolute Auto 0.3 K/mm3 (0.1-0.6); Monocytes Percent Auto 3.4 % (2.6-8.5); Neutrophils Absolute Auto 8.3 K/mm3 (1.3-6.7); Neutrophils Percent Auto 89.2 % (45.5-73.1); Platelet Count Result 217 k/mm3 (150-375); Red Blood Count 4.55 M/mm3 (4.2-5.4); Red Cell Distribution Width 12.5 % (11.5-14.5); White Blood Count 9.3 K/mm3 (4.5-10.0)
[2023-05-09 08:24] LABS: Alanine Aminotransferase 25 U/L (6-35); Albumin Level 4.2 g/dL (3.5-5.1); Alkaline Phosphatase 79 U/L (38-126); Anion Gap 8 mmol/L (8-16); Aspartate Amino Transferase 21 U/L (14-36); Bilirubin,Total 0.6 mg/dL (0.2-1.3); Blood Urea Nitrogen 11 mg/dL (7-17); Calcium 9.7 mg/dL (8.4-10.2); Carbon Dioxide 28 mmol/L (22-30); Chloride 102 mmol/L (98-107); Estimated CRCL calculation 78 ml/min; Estimated Glomerular Filt Rate > 60; Glucose 149 mg/dL (65-110); Potassium 3.7 mmol/L (3.4-5.0); Sodium 138 mmol/L (137-145)
[2023-05-09 08:26] LABS: INR 1.1; Prothrombin Time 14.7 Seconds (11.1-14.7)
[2023-05-09 08:27] LABS: Partial Thromboplastin Time 30.9 SECONDS (22.3-36.8)
[2023-05-09 08:33] LABS: NT Pro B Type Natriuretic Pept 42 pg/mL (19.9-100)
[2023-05-09] MEDS: BENZONATATE 100 MG CAPSULE PO (10:01)
--- NOTE | 2023-05-09 10:32 | ED.SOB ---
HPI - SOB/Dyspnea General Chief Complaint: Shortness of Breath/Dyspnea Stated Complaint: diff breathing Time Seen by Provider: 05/09/23 07:34 History of Present Illness HPI Narrative: Patient is a 57-year-old female who presents ER with shortness of breath. Ongoing for 3 days. Worse with exertion. Associate with sinus congestion as well as productive cough. No fevers but does have chills. No known sick contacts. No exertional chest pain but has pain with coughing. No alleviating factors. Related Data Home Medications Medication Instructions Recorded Confirmed hydrochlorothiazide 25 mg tablet 25 mg PO DAILY 05/18/20 09/09/21 losartan 25 mg tablet 25 mg PO DAILY 05/18/20 09/09/21 zolpidem 10 mg tablet 10 mg PO HS PRN Insomnia 05/18/20 09/09/21 lorazepam 0.5 mg tablet 0.5 mg PO DAILY PRN Anxiety 06/06/20 09/09/21 cyclobenzaprine 10 mg tablet 10 mg PO DAILY PRN Pain 04/24/21 09/09/21 fluticasone propionate 50 2 spray intranasal DAILY 04/24/21 09/09/21 mcg/actuation nasal spray,suspension metformin 500 mg tablet,extended 500 mg PO BID 04/24/21 09/09/21 release 24 hr ondansetron 4 mg disintegrating 4 mg PO Q4-6H PRN Nausea 04/24/21 09/09/21 tablet apixaban 5 mg tablet (Eliquis) 5 mg PO BID 04/27/21 09/09/21 Allergies Allergy/AdvReac Type Severity Reaction Status Date / Time iohexol Allergy Anaphylaxis Verified 05/09/23 07:44 [From contrast - CT, X-RAY] levofloxacin [From Levaquin] Allergy Anaphylaxis Verified 05/09/23 07:44 Jlrnisy-SKY-MgZ Reductase Allergy Anaphylaxis Verified 05/09/23 07:44 Inhibitor [Ytyowav-Lmx-Uxw Reductase Inhibitor] tramadol Allergy Anaphylaxis Verified 05/09/23 07:44 Review of Systems Review of Systems: All systems reviewed & are unremarkable except as noted in HPI and below Constitutional: Constitutional: Reports chills, Denies fatigue and Denies fever(s) ENT: Denies nasal congestion and Denies sore throat Cardiovascular: Cardiovascular: Reports chest pain (From coughing), Denies rapid heart rate and Denies radiating jaw, neck or arm pain Respiratory: Respiratory: Reports cough, Reports dyspnea and Denies wheezing Gastrointestinal: Gastrointestinal: Denies abdominal pain, Denies nausea and Denies vomiting PMFSH Past Medical History Medical History Asthma Chronic pain syndrome Low back and knees. History of pulmonary embolism Recurrent PEs in 1988, 2007, and 2019. On long-term apixaban. Hyperlipidemia Hypertension Nephrolithiasis Osteoarthritis Thyroid nodule Tobacco dependence Type 2 diabetes mellitus (Unknown) Surgical History Surgical History History of 3 sections History of hysterectomy (2006) History of laparoscopic cholecystectomy 04/26/21 Family History Family History Father Acute pulmonary edema Hypertension Mother Breast cancer Social History Social History Social History: The patient lives alone in [place]. She has had 3 children. On disability. Smokes 1 pack of cigarettes per day and has for years. No alcohol or illicit substance abuse. She designates her sister, Nika Crisostomo or her Jillian Grady as her surrogate decision makers and she wishes to be a full code. Smoking packs per day: 1 Smoking cigarettes per day: 20.0 Years smoked: 20 Smoking pack-years: 20.00 Smoking status: Current every day smoker (down to 1-2 cigs, sometimes not every day) Tobacco type: cigarettes Exam Narrative: GENERAL: Well-appearing, well-nourished, and in no acute distress. HEAD: Normocephalic, atraumatic. CHEST: Clear to auscultation. No respiratory distress. HEART: Regular rate and rhythm. Normal peripheral pulses. ABDOMEN: Soft, nontender, nondistended. EXTREMITIES:
== END 2023-05-09 11:00 | disposition home or self-care (01) ==
PROVIDERS: Emergency Provider Emergency Medicine; PCP Internal Medicine
DX: J06.9 Acute upper respiratory infection, unspecified (principal); E78.5 Hyperlipidemia, unspecified; E11.9 Type 2 diabetes mellitus without complications; F17.210 Nicotine dependence, cigarettes, uncomplicated; Z79.84 Long term (current) use of oral hypoglycemic drugs; Z79.01 Long term (current) use of anticoagulants; Z86.711 Personal history of pulmonary embolism
CPT/HCPCS: 36415; 71046; 80053; 83880; 85025; 85610; 85730; 93005; 94640; 99283; A9270

== ENCOUNTER 2023-08-18 06:10 | Emergency (ER) | payer OTHER, SELFPAY ==
[2023-08-18] VITALS (17 sets, daily range): BP systolic 130–162; BP diastolic 72–118; PULSE 78–99; RESP 12–22; TEMP 36.8; O2SAT 95–100
--- NOTE | ~2023-08-18 | XR_ITS ---
Portable chest x-ray Comparison: 05/09/2023 Clinical History: Dyspnea Findings: There is linear scarring at the right upper lobe region. Lungs are otherwise clear. Suspec radha bilateral hilar lymphadenopathy present no unchanged. Cardiomediastinal silhouette is stable. Henry natalia and soft tissues are unremarkable. Impression: Linear right upper lobe scarring. Probable bilateral hilar lymphadenopathy, unchanged. Reviewed, dictated and finalized at location . Impression: Linear right upper lobe scarring. Probable bilateral hilar lymphadenopathy, unchanged.
--- NOTE | ~2023-08-18 | NM_ITS ---
EXAMINATION: NM lung vent and perfusion DATE: 08/18/2023 09:47 INDICATION: Hemoptysis and shortness of breath post recent knee surgery TECHNIQUE: 17.754 mCi xenon-133 by inhalation and 5.5 mCi Tc-99m MAA by intravenous route. Scintigra phic images of the chest were obtained. COMPARISON: Chest CT dated 08/18/2023 FINDINGS: There is homogeneous radiotracer activity throughout the lungs on the single breath ventilation seque nce. There are large unmatched perfusion defects involving the entire right upper lobe, right middle lobe, left upper lobe and lingula. There are subtle corresponding groundglass opacities in the affect ed portions of lungs on CT imaging. There is no evident activity in the nonpulmonary tissues to sugge st a patent pulmonary AV shunt/malformation. IMPRESSION: 1. High probability for pulmonary embolism. Dr. Alvarez discussed these findings with Dr. You at 10:10 AM. Of note given the evidence of granulomatous disease with bulky calcified mediastinal and hilar lymphadenopathy on CT could also consider fibrosing mediastinitis as a potential etiology for pulmonary perfusion abnormalities however in isolation this would be unlikely to account for an acute presentation. Reviewed, dictated and finalized at location A. IMPRESSION: 1. High probability for pulmonary embolism. Dr. Alvarez discussed these findi ngs with Dr. You at 10:10 AM. Of note given the evidence of granulomatous disease with bulky calcified mediastinal and hilar lymphadenopathy on CT could also consider fibrosing mediastinitis as a potential etiology for pulmonary per fusion abnormalities however in isolation this would be unlikely to account for an acute presentation.
--- NOTE | ~2023-08-18 | CT_ITS ---
CT Scan of the Chest without Contrast: Clinical Indication: Hemoptysis Technique: Contiguous sections were acquired throughout the chest without intravenous contrast. Dose reduction technique was used on this scan by utilizing automated exposure control and iterative recon struction technique. The dose-length product (DLP) was 179.70 mGy-cm. COMPARISON: 09/09/2022 Findings: Calcified mediastinal lymph nodes are unchanged from most recent prior exam. Suspected bilateral kathy r lymph nodes present, also essentially unchanged. No axillary lymphadenopathy. No aortic aneurysm. There is no evidence of pleural or pericardial effusion. There is a suspected right middle lobe AVM, probable prominent feeding vessel and draining vein, and mild surrounding haziness. Appearance is similar to prior exams. No acute pulmonary abnormality evide nt. Images through the upper abdomen reveal suggestion of bilateral renal masses, some which are hyperden se, which are probably similar to prior abdominal pelvic CT dated 04/24/2021, most likely cysts and hy perdense cysts. Small nonobstructing bilateral renal stones are noted. 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 Mediastinal lymphadenopathy, with extensive calcification, unchanged. Sarcoid is most likely underlyi ng etiology. Reviewed, dictated and finalized at location . 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 Mediastinal lymphadenopathy, with extensive calcification, unchanged. Sarcoid i s most likely underlying etiology.
--- NOTE | 2023-08-18 06:35 | ECG_ITS ---
Measurements Intervals [place] Rate: 79 P: 51 DC: 165 QRS: 21 QRSD: 82 T: 63 QT: 366 QTc: 421 Interpretive Statements SINUS RHYTHM COMPARED TO ECG 05/09/2023 07:56:18 NO SIGNIFICANT CHANGES Electronically Signed On 08-18-2023 12:44:55 CDT by Ashley Monte M.D.
[2023-08-18 06:40] LABS: Basophils Percent Auto 0.4 % (0.2-1.2); Eosinophils Absolute Auto 0.1 K/mm3 (0-0.3); Eosinophils Percent Auto 1.6 % (0-4.4); Hematocrit 40.3 % (37.0-47.0); Hemoglobin 13.3 g/dL (12.0-15.0); Immature Granulocyte Absolute 0.01 K/mm3 (0.00-0.031); Immature Granulocyte Percent A 0.2 % (0-0.5); Lymphocytes Absolute Auto 1.81 K/mm3 (0.9-3.2); Lymphocytes Percent Auto 31.7 % (18.3-44.2); Mean Corpuscular Hemoglobin 27.8 pg (26-34); Mean Corpuscular Volume 84.1 fl (80-100); Mean Platelet Volume 11.6 fl (7.4-10.4); Monocytes Absolute Auto 0.3 K/mm3 (0.1-0.6); Monocytes Percent Auto 5.4 % (2.6-8.5); Neutrophils Absolute Auto 3.5 K/mm3 (1.3-6.7); Neutrophils Percent Auto 60.7 % (45.5-73.1); Platelet Count Result 216 k/mm3 (150-375); Red Blood Count 4.79 M/mm3 (4.2-5.4); Red Cell Distribution Width 13.5 % (11.5-14.5); White Blood Count 5.7 K/mm3 (4.5-10.0)
[2023-08-18 06:45] LABS: Alanine Aminotransferase 15 U/L (6-35); Albumin Level 4.4 g/dL (3.5-5.1); Alkaline Phosphatase 74 U/L (38-126); Anion Gap 7 mmol/L (8-16); Aspartate Amino Transferase 21 U/L (14-36); Bilirubin,Total 1.3 mg/dL (0.2-1.3); Blood Urea Nitrogen 11 mg/dL (7-17); Calcium 9.6 mg/dL (8.4-10.2); Carbon Dioxide 26 mmol/L (22-30); Chloride 107 mmol/L (98-107); Estimated CRCL calculation 75 ml/min; Estimated Glomerular Filt Rate > 60; Glucose 92 mg/dL (65-110); Potassium 3.3 mmol/L (3.4-5.0); Sodium 140 mmol/L (137-145)
--- NOTE | 2023-08-18 07:06 | PC.NURSE ---
Report given to JESUS ALBERTO De Jesus at this time.
[2023-08-18 07:36] LABS: Influenza A QL RT-PCR Negative (Negative); Influenza B QL RT-PCR Negative (Negative); RSV RNA, RT-PCR Negative (Negative); SARS-CoV-2 RNA PCR Negative (Negative)
[2023-08-18 08:17] LABS: INR 1.3; Prothrombin Time 16.4 Seconds (11.1-14.7)
[2023-08-18 08:39] LABS: D Dimer 1.53 ug/mL (<0.48)
--- NOTE | 2023-08-18 10:09 | ED.GENADULT ---
HPI - General Adult General Chief complaint: Unspecified Stated complaint: Coughing up blood last night Time Seen by Provider: 08/18/23 06:57 History of Present Illness HPI narrative: This is a 57-year-old female, who presents emergency department complaining of cough and hemoptysis. The patient states she has had cough for the last several days, associated with some baseline shortness of breath. This morning however, she coughed up 2 teaspoons full of bright red blood. This has since stopped. Related Data Home Medications Medication Instructions Recorded Confirmed hydrochlorothiazide 25 mg tablet 25 mg PO DAILY 05/18/20 09/09/21 losartan 25 mg tablet 25 mg PO DAILY 05/18/20 09/09/21 zolpidem 10 mg tablet 10 mg PO HS PRN Insomnia 05/18/20 09/09/21 lorazepam 0.5 mg tablet 0.5 mg PO DAILY PRN Anxiety 06/06/20 09/09/21 cyclobenzaprine 10 mg tablet 10 mg PO DAILY PRN Pain 04/24/21 09/09/21 fluticasone propionate 50 2 spray intranasal DAILY 04/24/21 09/09/21 mcg/actuation nasal spray,suspension metformin 500 mg tablet,extended 500 mg PO BID 04/24/21 09/09/21 release 24 hr ondansetron 4 mg disintegrating 4 mg PO Q4-6H PRN Nausea 04/24/21 09/09/21 tablet apixaban 5 mg tablet (Eliquis) 5 mg PO BID 04/27/21 09/09/21 Allergies Allergy/AdvReac Type Severity Reaction Status Date / Time iohexol Allergy Anaphylaxis Verified 08/18/23 06:28 [From contrast - CT, X-RAY] levofloxacin [From Levaquin] Allergy Anaphylaxis Verified 08/18/23 06:28 Pnxqvyi-ALK-FlI Reductase Allergy Anaphylaxis Verified 08/18/23 06:28 Inhibitor [Raqyjuw-Upf-Ugb Reductase Inhibitor] tramadol Allergy Anaphylaxis Verified 08/18/23 06:28 Review of Systems Review of Systems: CONSTITUTIONAL: Denies fever, chills, or sweats. ENT: Denies rhinorrhea, congestion, sore throat, or otalgia. CARDIOVASCULAR: Denies chest pain, palpitations, or edema. RESPIRATORY: Hemoptysis, chronic dyspnea unchanged from baseline GASTROINTESTINAL: Denies abdominal pain, nausea, vomiting, or diarrhea. GENITOURINARY: Denies dysuria or hematuria. SKIN: Denies rash or itching. MUSCULOSKELETAL: Denies back pain, joint pain, or myalgia. NEUROLOGIC: Denies headache, numbness, dizziness, or weakness. PSYCHIATRIC: Denies anxiety or depression. [facility] Past Medical History Medical History Asthma Chronic pain syndrome Low back and knees. History of pulmonary embolism Recurrent PEs in 1988, 2007, and 2019. On long-term apixaban. Hyperlipidemia Hypertension Nephrolithiasis Osteoarthritis Thyroid nodule Tobacco dependence Type 2 diabetes mellitus (Unknown) Surgical History Surgical History History of 3 sections History of hysterectomy (2006) History of laparoscopic cholecystectomy 04/26/21 Family History Family History Father Acute pulmonary edema Hypertension Mother Breast cancer Social History Social History Social History: The patient lives alone in [place]. She has had 3 children. On disability. Smokes 1 pack of cigarettes per day and has for years. No alcohol or illicit substance abuse. She designates her sister, Nika Crisostomo or her Jillian Grady as her surrogate decision makers and she wishes to be a full code. Smoking packs per day: 1 Smoking cigarettes per day: 20.0 Years smoked: 20 Smoking pack-years: 20.00 Smoking status: Current every day smoker (down to 1-2 cigs, sometimes not every day) Tobacco type: cigarettes Exam Narrative: GENERAL: Well-developed, well-nourished, and in no acute distress. HEAD: Normocephalic, atraumatic. EYES: PERRLA and EOMI. CHEST: Clear to auscultation. No respiratory distress. No wheezes rales or rhonchi HEART: Regular rate and rhythm. No
== END 2023-08-18 12:07 | disposition home or self-care (01) ==
PROVIDERS: Emergency Medicine; Emergency Provider Preventive Medicine Aerospace Medicine; PCP Internal Medicine
DX: I26.99 Other pulmonary embolism without acute cor pulmonale (principal); R04.2 Hemoptysis; Z20.822 Contact with and (suspected) exposure to COVID-19; I10 Essential (primary) hypertension; E11.9 Type 2 diabetes mellitus without complications; E78.5 Hyperlipidemia, unspecified; J45.909 Unspecified asthma, uncomplicated; G89.4 Chronic pain syndrome; M19.90 Unspecified osteoarthritis, unspecified site; Z87.442 Personal history of urinary calculi; Z86.711 Personal history of pulmonary embolism; Z90.710 Acquired absence of both cervix and uterus; Z90.49 Acquired absence of other specified parts of digestive tract; Z79.01 Long term (current) use of anticoagulants; Z79.84 Long term (current) use of oral hypoglycemic drugs; F17.210 Nicotine dependence, cigarettes, uncomplicated
CPT/HCPCS: 36415; 71045; 71250; 78582; 80053; 85025; 85380; 85610; 85730; 87637; 93005; 99284; A9540; A9558

== ENCOUNTER 2023-10-24 09:01 | Outpatient (CLI) | payer OTHER, SELFPAY ==
--- NOTE | 2023-11-14 18:35 | WPDSLEEPSTUD ---
Sleep Study Date of Study: 10/24/23 Ordering Provider: Jerilyn Tucker MD Interpreting Physician: Jerilyn Tucker MD Sleep Study Type: Polysomnogram Height: 1.6 m Weight: 77.111 kg Body Mass Index: 30.1 Neck Circumference (inches): 13.25 Secor: 4 Reason for Sleep Study Hypersomnolence Sleep History Dolly Lucas is a 57-year-old woman with difficulty falling asleep and staying asleep. She used Ambien for about a year, then her doctor stopped prescribing it. She never awakens from sleep short of breath. She never wakes at night with heartburn, belching or coughing.??She rarely snores, rarely snores loudly enough that others complain. She frequently has trouble sleeping when she has a cold. She never wakes up gasping for breath during the night. She rarely has breathing problems at night. She frequently sweats excessively at night. She never notices her heart pounding or beating irregularly during the night. She rarely falls asleep during the day. She rarely falls asleep involuntarily, never falls asleep while driving. She never experiences loss of muscle tone with strong emotion. She never feels paralyzed on waking or falling asleep. She rarely experiences vivid dreams upon waking or falling asleep. She never feels afraid of going to sleep. She never has nightmares. She rarely recalls her dreams. She occasionally has thoughts racing through her mind. She rarely feels sad or depressed. She occasionally feels anxiety. She rarely notices parts of her body jerk. She rarely kicks during the night. She occasionally feels crawling or aching feelings in her legs. She occasionally feels leg pain at night. She never has morning jaw pain, and occasionally grinds her teeth at night. She occasionally feels bothered by pain during the day, is occasionally awakened by pain during the night. She occasionally wakes up feeling stiff in the morning, occasionally wakes feeling sore or achy in the morning. She occasionally awakens with pain in her neck, spine, or joints. Normal bedtime is between 9:30 p.m. and 10:00 p.m., falling asleep within an hour, waking twice at night, returning to sleep within 20 minutes. While awake at night, she sometimes watches TV. She wakes at 5:30 a.m., reports getting between 4-6 hours of sleep per night. On weekends, her bedtime is later, between 10-11 pm, and she wakes by 6:30 a.m. She does not take naps. A short nap is not refreshing. She is drowsy for 2 hours after waking. Habits:??Tobacco:6 cigarettes a day Caffeine:1 cup. Alcohol:none Recreational substances: none REPLACED BY [facility] Past Medical History Medical History Asthma Chronic pain syndrome Low back and knees. FH: total knee replacement History of pulmonary embolism Recurrent PEs in 1988, 2007, and 2019. On long-term apixaban. Hyperlipidemia Hypertension Nephrolithiasis Osteoarthritis Thyroid nodule Tobacco dependence Type 2 diabetes mellitus (Unknown) Surgical History Surgical History History of 3 sections History of hysterectomy (2006) History of laparoscopic cholecystectomy 04/26/21 Family History Family History Father Acute pulmonary edema Hypertension Mother Breast cancer Social History Social History Social History: The patient lives alone in [place]. She has had 3 children. On disability. Smokes 1 pack of cigarettes per day and has for years. No alcohol or illicit substance abuse. She designates her sister, Nika Crisostomo or her Jillian Grady as her surrogate decision makers and she wishes to be a full code. Smoking packs per day: 1 Smoking cigarettes per day: 20.0 Years smoked: 20 Smoking pack-years: 20.00 Smoking status: Current every day smoker (down to 1-2 cigs, sometimes not every
[2023-11-15 09:31] VITALS: BMI 30.1
== END 2023-10-25 06:15 | disposition home or self-care (01) ==
LOC: ANHCSM 09:03
PROVIDERS: PCP Internal Medicine; Visit Provider Internal Medicine Critical Care Medicine
DX: R06.83 Snoring (principal); G47.19 Other hypersomnia
CPT/HCPCS: 36415; 80053; 80061; 82306; 82728; 83036; 84439; 84443; 85027; 95810

== ENCOUNTER 2023-10-24 10:37 | Outpatient (CLI) | payer OTHER, SELFPAY ==
[2023-10-24 11:30] LABS: Hematocrit 38.1 % (37.0-47.0); Hemoglobin 12.7 g/dL (12.0-15.0); Mean Corpuscular HGB Conc 33.3 g/dl (32-36); Mean Corpuscular Hemoglobin 27.4 pg (26-34); Mean Corpuscular Volume 82.3 fl (80-100); Mean Platelet Volume 11.5 fl (7.4-10.4); Platelet Count Result 229 k/mm3 (150-375); Red Blood Count 4.63 M/mm3 (4.2-5.4); Red Cell Distribution Width 14.2 % (11.5-14.5); White Blood Count 5.8 K/mm3 (4.5-10.0)
[2023-10-24 11:42] LABS: Alanine Aminotransferase 16 U/L (6-35); Albumin Level 4.1 g/dL (3.5-5.1); Alkaline Phosphatase 90 U/L (38-126); Anion Gap 5 mmol/L (8-16); Aspartate Amino Transferase 18 U/L (14-36); Bilirubin,Total 1.2 mg/dL (0.2-1.3); Blood Urea Nitrogen 12 mg/dL (7-17); Calcium 9.3 mg/dL (8.4-10.2); Carbon Dioxide 27 mmol/L (22-30); Chloride 107 mmol/L (98-107); Cholesterol 215 mg/dL (0-200); Estimated Glomerular Filt Rate > 60; Glucose 85 mg/dL (65-110); HDL Direct 50 mg/dL; Potassium 3.8 mmol/L (3.4-5.0); Sodium 139 mmol/L (137-145); Triglycerides 78 mg/dL (<150)
[2023-10-24 11:52] LABS: LDL Cholesterol Direct 114 mg/dL
[2023-10-24 12:12] LABS: Hemoglobin A1C 5.6 % (<5.7)
[2023-10-24 12:56] LABS: Free T4 Free Thyroxine 1.04 ng/mL (0.78-2.19)
[2023-10-24 13:58] LABS: Vitamin D 25 Hydroxy < 12.8 ng/mL
== END 2023-10-24 10:38 | disposition home or self-care (01) ==
PROVIDERS: PCP Internal Medicine; Referring Provider Internal Medicine; Visit Provider Internal Medicine Critical Care Medicine
DX: G25.81 Restless legs syndrome (principal); R53.83 Other fatigue; R53.1 Weakness; E55.9 Vitamin D deficiency, unspecified; I10 Essential (primary) hypertension
CPT/HCPCS: 36415; 80053; 80061; 82306; 82728; 83036; 84439; 84443; 85027

== ENCOUNTER 2024-03-07 13:58 | Outpatient (CLI) | payer OTHER, SELFPAY ==
--- NOTE | ~2024-03-07 | MM_ITS ---
EXAMINATION: MM screening susan BI w juliet HISTORY: Screening mammogram TECHNIQUE: Craniocaudal and mediolateral oblique 3-D tomosynthesis images were obtained and synthetic 2-D images were generated. CAD analysis was submitted and interpreted. COMPARISON: No prior mammogram is available for comparison at this institution. BREAST PARENCHYMAL COMPOSITION: There are scattered areas of fibroglandular density. FINDINGS: There is no evidence of suspicious mass, calcification, or architectural distortion to sugg est malignancy in either breast. IMPRESSION: 1. No mammographic evidence of malignancy. 2. Recommend routine screening mammography in one year. BI-RADS Category 1: Negative Reviewed, dictated and finalized at location A.
== END 2024-03-07 13:59 | disposition home or self-care (01) ==
LOC: ANHIMG 14:00
PROVIDERS: PCP Internal Medicine; Visit Provider Internal Medicine
DX: Z12.31 Encounter for screening mammogram for malignant neoplasm of breast (principal)
CPT/HCPCS: 77063; 77067

== ENCOUNTER 2024-03-09 15:32 | Outpatient (CLI) | payer OTHER, SELFPAY ==
--- NOTE | ~2024-03-09 | US_ITS ---
EXAMINATION: US retroperitoneal comp DATE: 03/09/2024 16:15 INDICATION: Other specified disorders of kidney TECHNIQUE: Multiple ultrasound grayscale images of the kidneys were obtained. COMPARISON: 04/24/2021 and 08/18/2023 FINDINGS: The right kidney measures 10.6 x 5.8 x 5.6 cm. The left kidney measures 10.7 x 5.9 x 5.1 cm. The kidn eys demonstrate normal echogenicity. There are bilateral anechoic renal cysts the largest on both the left and right measuring 2.1 cm. There is a 6 mm echogenic focus at the upper pole the right kidney and 3 mm echogenic focus at the lower pole of the left kidney both of which are without evident poste rior acoustic shadowing or typical artifact but which appears to correspond to a similarly sized clemencia l stones at these locations on the CT images. There is no hydronephrosis in either kidney. The bladde r is normal. IMPRESSION: 1. Bilateral renal cysts and a couple nonobstructing bilateral renal stones. No hydronephrosis. Reviewed, dictated and finalized at location A. IMPRESSION: 1. Bilateral renal cysts and a couple nonobstructing bilateral renal stones. N o hydronephrosis.
== END 2024-03-09 15:33 | disposition home or self-care (01) ==
LOC: ANHIMG 15:34
PROVIDERS: PCP Internal Medicine; Visit Provider Internal Medicine
DX: N28.89 Other specified disorders of kidney and ureter (principal); N28.1 Cyst of kidney, acquired
CPT/HCPCS: 76770

== ENCOUNTER 2024-04-25 09:37 | Outpatient (CLI) | payer OTHER, SELFPAY ==
--- NOTE | 2024-04-25 11:30 | NEURO_ITS ---
Impression: # Known diabetic complains of numbness of feet # Relatively right posterior tibial neuropathy. # Normal F-waves. # Normal Needle/EMG exam. # Clinical correlation recommended; could be related to small fiber neuropathy. Nerve Conduction Studies Anti Sensory Summary Table Stim Site NR Peak (ms) P-T Amp (?V) Site1 Site2 Delta-P (ms) Dist (cm) Ken (m/s) Left Sup Fibular Anti Sensory (Ant Lat Mall) 14 cm 3.0 15.3 14 cm Ant Lat Mall 3.0 16.0 53 Right Sup Fibular Anti Sensory (Ant Lat Mall) 14 cm 3.4 12.3 14 cm Ant Lat Mall 3.4 16.0 47 Left Sural Anti Sensory (Lat Mall) Calf 3.5 16.9 Calf Lat Mall 3.5 16.0 46 Right Sural Anti Sensory (Lat Mall) Calf 3.3 17.6 Calf Lat Mall 3.3 16.0 48 Motor Summary Table Stim Site NR Onset (ms) O-P Amp (mV) Site1 Site2 Delta-0 (ms) Dist (cm) Ken (m/s) Left Peroneal Motor (Vastus Med) Ankle 3.7 4.2 Popit Ankle 7.1 38.0 54 Popit 10.8 3.3 Right Peroneal Motor (Vastus Med) Ankle 4.0 2.3 Popit Ankle 7.7 39.0 51 Popit 11.7 1.9 Left Tibial Motor (Abd Elliott Brev) Ankle 4.0 6.1 Knee Ankle 7.8 39.0 50 Knee 11.8 4.1 Right Tibial Motor (Abd Elliott Brev) Ankle 3.8 6.5 Knee Ankle 8.8 39.0 44 Knee 12.6 3.6 F Wave Studies NR F-Lat (ms) L-R F-Lat (ms) Left Peroneal (Mrkrs) (EDB) 51.95 0.70 Right Peroneal (Mrkrs) (EDB) 52.66 0.70 Left Tibial (Mrkrs) (Abd Hallucis) 50.25 1.03 Right Tibial (Mrkrs) (Abd Hallucis) 51.29 1.03 EMG Side Muscle Nerve Root Ins Act Fibs Amp Dur Recrt Comment Right AntTibialis Dp Br Fibular L4-5 Nml Nml Nml Nml Nml Right Gastroc Tibial S1-2 Nml Nml Nml Nml Nml Right Fibularis Long Sup Br Fibular L5-S1 Nml Nml Nml Nml Nml Right Flex Dig Long Tibial L5-S2 Nml Nml Nml Nml Nml Right Ext Dig Brev Dp Br Fibular L5, S1 Nml Nml Nml Nml Nml Left AntTibialis Dp Br Fibular L4-5 Nml Nml Nml Nml Nml Left Gastroc Tibial S1-2 Nml Nml Nml Nml Nml Left Fibularis Long Sup Br Fibular L5-S1 Nml Nml Nml Nml Nml Left Flex Dig Long Tibial L5-S2 Nml Nml Nml Nml Nml Left Ext Dig Brev Dp Br Fibular L5, S1 Nml Nml Nml Nml Nml MTDD
== END 2024-04-25 09:38 | disposition home or self-care (01) ==
LOC: ANHNEURO 09:38
PROVIDERS: PCP Internal Medicine; Visit Provider Pain Medicine Pain Medicine
DX: M54.16 Radiculopathy, lumbar region (principal); M25.561 Pain in right knee; Z79.01 Long term (current) use of anticoagulants; Z86.711 Personal history of pulmonary embolism; G62.9 Polyneuropathy, unspecified
CPT/HCPCS: 95886; 95910

== ENCOUNTER 2025-01-16 08:32 | Outpatient (CLI) | payer OTHER, SELFPAY ==
--- OUTSIDE RECORDS SUMMARY | 2025-01-16 08:53 | XMS_ITS | Encounter Summary ---
Author Organization [facility] Address [address] [place] [address] Phone Care Team Providers Care Transporter Driver Name Role Phone Oliver Doan MD Primary Care Provider [phone] Jerilyn Tucker MD Unavailable [phone] Oliver Doan MD Primary Care Provider [phone] Javon Hart MD Unavailable [phone] Juliana Duenas Unavailable [phone] Encounter Details Date Type Department Care Team (Latest Contact Info) Description 09/09/2022 Orders Only [facility] Scanning, Provider Social History Tobacco Use Types Packs/Day Years Used Date Smoking Tobacco: Every Day PHQ-2 Answer Date Recorded PHQ-2 Total Score (If total score is 3 or more points, staff should administer the PHQ-9) 0 04/22/2021 Comments Unknown Sex and Gender Information Value Date Recorded Sex Assigned at Not on file Legal Sex Female 1:17 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 Gender Identity Not on file Sexual Orientation Not on file documented as of this encounter Plan of Treatment Not on file documented as of this encounter Procedures Procedure Name Priority Date/Time Associated Diagnosis Comments SCAN - RADIOLOGY/IMAGING 09/09/2022 documented in this encounter Results * SCAN - RADIOLOGY/IMAGING (09/09/2022) Anatomical Region Laterality Modality Other Provider Scanning Final Result documented in this encounter Visit Diagnoses Not on filedocumented in this encounter Additional Health Concerns Infection Onset Date Last Indicated Resolved Time MDR gram neg/ESBL Comment:Patients who received care at a healthcare facility outside of the [place] will be placed in Contact Precautions until infection or colonization with specific highly resistant bacteria can be ruled out. Infection Prevention will arrange screening. Please contact Infection Prevention. IP Review 06-10-23: admission nurse hit yes under hospitalized outside [place] when it was no . Resolved. 06/09/2023 06/09/2023 06/10/2023 11:15 AM CDT documented as of this encounter Care Teams Transporter Driver Relationship Specialty Start Date End Date Oliver Doan MD [address] [place] [address] PCP - General Internal Medicine 05/18/20 05/25/23 Oliver Doan MD [address] [place] [address] PCP - General Internal Medicine 06/01/23 Jerilyn Tucker MD [address] [address] Consulting Physician Critical Care Med 05/26/23 Javon Hart MD [address] [address] Consulting Physician Pulmonary Disease 06/09/23 Juliana Duenas PA [address] [address] Orthopedic Surgery 06/21/23 documented as of this encounter
--- OUTSIDE RECORDS SUMMARY | 2025-01-16 08:53 | XMS_ITS | Clinical Summary ---
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 Gender Identity Not on file Sexual Orientation Not on file Plan of Treatment Health Maintenance Due Date Last Done Comments Hepatitis C Virus (HCV) Screening 1965 Hepatitis B Immunization (1 of 3 - 19+ 3-dose series) 1984 Pap Smear 1986 Cervical Cancer Screening (CCS) 1995 HPV/Cotest 1995 Colonoscopy 2010 Colorectal Cancer Screening 2010 Cologuard 2015 Immunochemical Fecal Occult Blood 2015 Mammogram 2015 Pneumococcal Immunization (50+ years) (1 of 1 - PCV) 2015 Zoster Immunization (1 of 2) 2015 Influenza Immunization (#1) 07/15/2024/0 11/2019, 10/19/2019, 08/08/2018, Additional history exists SARS-COV-2 Immunization ( season) 2024 07/08/2021, 02/12/2021 Respiratory Syncytial Virus (RSV) Immunization (Adult) (1 - 1-dose 75+ series) 2040 DTaP/Tdap/Td Immunization Discontinued 03/13/2018, 11/2007 TdaP Immunization Completed 03/13/2018, 11/14/2007 Meningococcal Immunization (ACWY) Aged Out No longer eligible based on patient's age to complete this topic Pneumococcal Immunization Combined Aged Out No longer eligible based on patient's age to complete this topic Rotavirus Immunization Aged Out No lo nger eligible based on patient's age to complete this topic Insurance [employer] on file [employer] on file
--- OUTSIDE RECORDS SUMMARY | 2025-01-16 08:53 | XMS_ITS | Referral Summary ---
Author Organization [facility] [address] Address [address] [place] [address] Care Team Providers Care [employer] Driver Name Role Phone Jerilyn Tucker MD Unavailable [phone] Oliver Doan MD Primary Care Provider [phone] Javon Hart MD Unavailable [phone] Juliana Duenas Unavailable [phone] Encounters Date Type Department Care Team Description 12/20/[address] [facility] Primary Care at [facility] - [address] [facility] [address] [place] [phone] Kendal Morin NP 12/17/2024 Telephone [facility] [address] [facility] [address] [place] [phone] Marti Ayala MD 12/05/[address] [facility] Gastroenterology at [facility] [address] [place] [address] [address] [place] [address] Jairo Larry MD 11/27/2024 12:30 PM BOOKBINDER APPRENTICE - 11/27/2024 1:00 PM BOOKBINDER APPRENTICE Surgery [facility] [address] [place] [address] Jairo Larry MD COLON BIOPSY 11/27/2024 12:32 PM BOOKBINDER APPRENTICE Anesthesia Event [facility] [address] [place] [address] Herminio Gomez MD 11/27/2024 11:22 AM BOOKBINDER APPRENTICE - 11/27/2024 1:52 PM BOOKBINDER APPRENTICE Hospital Encounter [facility] [address] [place] [address] Jairo Larry MD Encounter for screening for malignant neoplasm of colon Discharge Disposition: Discharge to home or self care 10/25/[address] [facility] Gastroenterology at [facility] [id number] [place] [address] [address] [place] [phone] Jairo Larry MD from Last 3 Months Allergies Active Allergy Reactions Criticality Noted Date Comments Atorvastatin Anaphylaxis High 10/13/2018 All statins Iodinated Contrast Media Hives Medium 03/02/2021 Iodine Hives High Reaction: Hives, Levofloxacin Rash Low 01/01/2016 Reaction: Rash, Tramadol Anaphylaxis High 10/13/2018 Medications Dulera 200-5 mcg/actuation inhaler 11/20/19 21 Active losartan (COZAAR) 25 mg tablet Take 1 tablet (25 mg total) by mouth daily 11/06/20 20 Active OneTouch Delica Plus Lancet 33 gauge misc 09/08/20 20 Active hydroCHLOROth iazide (HYDRODIURIL) 25 mg tablet Take 1 tablet (25 mg total) by mouth daily 11/10/20 20 Active OneTouch Verio test strips strip 01/23/20 21 Active cyclobenzapri ne (FLEXERIL) 10 mg tablet Take 1 tablet (10 mg total) by mouth 2 (two) times a day as needed for muscle spasms 06/21/20 19 Active diphenoxylate -atropine (LOMOTIL) 2.5-0.025 mg per tablet Take 1 tablet by mouth daily as needed Active famotidine (PEPCID) 40 mg tablet Take 1 tablet (40 mg total) by mouth daily Active fluticasone propionate (FLONASE) 50 mcg/actuation nasal spray Administer 1 spray into each nostril daily as needed for allergies 11/25/19 18 Active promethazine (PHENERGAN) 12.5 mg tablet Take 1 tablet (12.5 mg total) by mouth every 6 (six) hours as needed for nausea Active albuterol HFA (PROVENTIL HFA,VENTOLIN HFA,PROAIR HFA) 90 mcg/actuation inhaler Inhale 2 puffs every 4 (four) hours as needed 05/01/20 23 Active Ozempic 1 mg/dose (4 mg/3 mL) pen injector injection Inject 1 mg under the skin once a week saturdays06/04/20 23 Active Spiriva Respimat 1.25 mcg/actuation inhaler Inhale 2 puffs daily 06/01/20 23 Active Symbicort 160-4.5 mcg/actuation inhaler Inhale 2 puffs 2 (two) times a day 02/29/20 23 Active calcium carbonate (TUMS) 500 mg (200 mg elemental iron) chewable tablet Take 1 tablet/chew tab (500 mg total) by mouth daily as needed for indigestion or heartburn Active nystatin 100,000 unit/mL suspension 07/01/20 23 Active albuterol 1.25 mg/3 mL nebulizer solution USE 1 VIAL VIA NEBULIZER EVERY 4-6 HOURS NEEDED 06/12/20 23 Active Eliquis 5 mg tablet 08/03/20 23 Active metFORMIN XR (GLUCOPHAGE XR) 500 mg 24 hr tablet 07/08/20 23 Active acyclovir (ZOVIRAX) 400 mg tablet 10/12/20 23 Active gabapentin (NEURONTIN) 300 mg capsule Take by mouth Active lidocaine (LIDODERM) 5 % APPLY 1 PATCH TOPICALLY TO THE SKIN EVERY 12 HOURS 12/20/19 24 Active benzonatate (TESSALON) 200 mg capsule Take 1 capsule (200 mg total) by mouth 3 (three) times a day as needed for cough 60 capsule 05/04/20 24 Active predniSONE (DELTASONE) 10 mg tablet Take 4 tablets by mouth x 3 days. Then take 3 tablets by mouth x 3 d. Then take 2 tablets by mouth x 3 d. Then take 1 tablet by mouth x 3 d. 30 tablet 05/04/20 24 Active gabapentin (NEURONTIN) 100 mg capsule Take 2 capsules (200 mg total) by mouth nightly 05/14/20 24 Active albuterol 0.63 mg/3 mL nebulizer solution USE 1 VIAL VIA NEBULIZER EVERY 4 TO 6 HOURS NEEDED 04/02/20 24 Active naloxone (NARCAN) 4 mg/actuation spray,non-aer osol USE 1 NEEDED FOR OVERDOSE. MAY REPEAT 2ND DOSE IF NEEDED. CALL 911 AFTER ADMINISTRATION 05/14/20 24 Active HYDROcodone-a cetaminophen (XODOL) 7.5-300 mg per tablet Active HYDROcodone-a cetaminophen (NORCO) 7.5-325 mg per tablet Take 1 tablet by mouth every 8 (eight) hours as needed 05/14/20 24 Active fluconazole (DIFLUCAN) 100 mg tablet Take 1.5 tablets (150 mg total) by mouth daily 08/01/20 24 Active polyethylene glycol (GoLYTELY) 236-22.74-6.7 4 -5.86 gram solution Mix as directed. At 4:00 pm, begin drinking one half of the mixed solution; you will have until 7:00 pm to finish. At 10 pm drink the second half of the mixed solution, you have till midnight to finish. 4000 mL 10/29/20 24 Active bisacodyl EC (DULCOLAX EC) 5 mg EC tabletIndicat ions:constipa tion At 7 pm, take all four tablets at once with a glass of water. 4 tablet 10/29/20 24 Active venlafaxine XR (EFFEXOR-XR) 75 mg 24 hr capsule Take 1 capsule (75 mg total) by mouth daily 30 capsule 11 12/19/19 25 Active venlafaxine XR (EFFEXOR-XR) 37.5 mg 24 hr capsule Take 1 capsule (37.5 mg total) by mouth daily 30 capsule 11 10/17/20 24 2024 Discontinued azithromycin (ZITHROMAX) 250 mg tablet Take 2 tabs (500 mg) by mouth today, than 1 tab (250 mg) daily for 4 days. 6 tablet 12/20/19 25 2024 Active Problems Problem Noted Date Diagnosed Date Encounter for screening for malignant neoplasm o f colon 10/25/2024 Well woman exam 10/17/2024 Assessment & Plan (10/17/2024 3:26 PM BOOKBINDER APPRENTICE): - Contraception: hysterectomy - STI screening discussed. Declines - Cervical cancer screening: Not indicated due to prior hysterectomy. Cervical cancer screening recommendations reviewed with patient. - HPV vaccine: N/A - Breast cancer screening: Normal clinical breast exam and Mammogram up to date, next due 02/2025 - Colon cancer screening: Colonoscopy due, order placed - DEXA: Not indicated - Diet and exercise discussed - Calcium and vitamin D intake discussed Vasomotor symptoms due to menopause 10/17/2024 Assessment & Plan (10/17/2024 3:39 PM BOOKBINDER APPRENTICE): We discussed symptoms of both perimenopause and menopause at length, including vasomotor symptoms such as hot flashes, night sweats, as well as vaginal dryness, brain fog, etc. We also discussed that hormone replacement therapy is the gold standard of treatment in this setting, although, there also nonhormonal modalities for treatment such as Venlafaxine/Veozah. We will plan to start venlafaxine at this time in the setting of previous VTE history. We will follow up in 3 months for symptoms surveillance, med titration if necessary. 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 She does have knee effusion, we will order a Medrol Dosepak to reduce inflammation and improve some of her pain. We will also order a CT of the right knee to further evaluate for complication. I also discussed with the patient that this pain could be coming from her hip or back. X-rays of the right hip and low back were taken in clinic following the patient's appointment. X-ray of the right hip demonstrates only mild osteoarthritis. X-ray of the low back demonstrates some mild degenerative disc disease and grade 1 anterolisthesis of L3 on L4. The patient will follow up with RUSS Saldivar next month to address her back and ensure that it is not the back that is causing the knee pain. We will follow up with the patient for further treatment and instructions after her CT is completed. I also discussed with the patient the importance of resuming physical therapy. She states she will call her physical therapy location and asked to reschedule her appointments. She will contact us if they need another referral and we will send that electronically. She expressed understanding and agreement with the plan. Assessment & Plan (06/28/2023 10:41 AM CDT): Reassured patient that she does not currently have any signs of infection of the surgical site. Discussed with the patient signs of infection to monitor for including increased erythema, swelling, and drainage from the surgical site, as well as fever and chills. She will notify us if she does develop any of these symptoms. Discussed with the patient that pain after knee replacement surgery is expected and that a lot of her pain is secondary to inflammation and buildup of scar tissue from the surgery. Discuss that working hard with physical therapy can greatly reduce the pain as she works through the scar tissue. I will refill the patient's pain medication today - discussed the importance of deescalation of the pain medication as she gains more pain relief going forward. Discussed with the patient to take her pain medication immediately prior to her physical therapy appointments so that she has some pain relief during physical therapy. Encouraged continued liberal icing of the knee for no more than 20 minutes at a time. The patient will have close follow-up and will return in 1 week for further evaluation of wound healing, progress in physical therapy, and for x-rays. Patient expressed understanding and agreement to the plan. Other diseases of mediastinum, not elsewhere cla ssified 06/07/2023 Gastroesophageal reflux disease 08/19/2021 Multiple thyroid nodules 04/22/2021 Assessment & Plan (04/22/2021 9:03 AM CDT): Differential diagnosis would include benign nodule (macrofollicular or adenomatoid/hyperplastic nodules, colloid adenomas, nodular goiter, and Samuel's thyroiditis) vs thyroid carcinoma ( follicular , papillary ) FNA indicated and performed If benign, will follow up with serial ultrasound Otherwise, will need referral to surgery COVID-19 virus infection 03/03/2021 Osteoarthritis 03/02/2021 Controlled type 2 diabetes m ellitus without complication, without long-term current use of insulin 03/02/2021 Chronic obstructive pulmonar y disease with acute exacerbation 03/02/2021 Pulmonary embolism 03/02/2021 Tobacco use 03/02/2021 Lumbar disc herniation 04/23/2019 Lumbar facet arthropathy 04/23/2019 Sacroiliitis 04/23/2019 Lumbar radiculopathy 10/13/2018 Overview (08/03/2023): Added automatically from request for surgery [id number] Added automatically from request for surgery [id number] Hypertension 01/01/2016 Pulmonary arterial hypertension 01/01/2016 Tobacco dependence syndrome 01/01/2016 Knee pain 04/23/2015 Immunizations Immunization Administration Dates Next Due Pfizer SARS-CoV-2 Monovalent Vaccination (12+ Yrs) PURPLE 02/12/2021 Social History Tobacco Use Types Packs/Day Years Used Date Smoking Tobacco: Every Day Cigarettes Passive Smoke Exposure: Current Smokeless Tobacco: Never Tobacco Cessation:Ready to Q uit: Not Asked; Counseling Given: Not Answered Social Connection and Isolat ion Panel [NHANES] Answer Date Recorded In a typical week, how many times do you talk on the phone with family, friends, or neighbors? More than three times a week 06/22/2023 How often do you get togethe r with friends or relatives? More than three times a week 06/22/2023 How often do you attend chur ch or catholic services? Never 06/22/2023 Do you belong to any clubs o r organizations such as hinduism groups, unions, fraternal or athletic groups, or school groups? No 06/22/2023 How often do you attend meet ings of the clubs or organizations you belong to? Never 06/22/2023 Marital Status Not on file 06/22/2023 AUDIT-C Answer Date Recorded Frequency of Alcohol Consumption Not on file 11/27/2024 Q2: How many drinks containi ng alcohol do you have on a typical day when you are drinking? Patient does not drink Frequency of Binge Drinking Not on file 11/14 Overall Financial Resource Strain (CARDIA) Answe r Date Recorded How hard is it for you to pa y for the very basics like food, housing, medical care, and heating? Not hard at all 06/22/2023 PHQ-2 Answer Date Recorded PHQ-2 Total Score (If total score is 3 or more points, staff should administer the PHQ-9) 0 04/22/2021 Hunger Vital Sign Answer Date Recorded Within the past 12 months, y ou worried that your food would run out before you got the money to buy more. Never true 06/22/20 23 Within the past 12 months, t he food you bought just didn't last and you didn't have money to get more. Never true 06/22/2023 PRAPARE - Transportation Answer Date Re corded In the past 12 months, has l ack of transportation kept you from medical appointments or from getting medications? No 06/22/2023 Lack of Transportation (Non-Medical) Not on file 06/22/2023 Housing Stability Vital Sign Answer Robbie e Recorded In the last 12 months, was t here a time when you were not able to pay the mortgage or rent on time? No 06/22/2023 In the last 12 months, how many places have you lived? 1 06/22/2023 In the last 12 months, was t here a time when you did not have a steady place to sleep or slept in a group home (including now)? No 06/22/2023 Personal Safety Answer Date Recorded Have you ever been in or are you currently in a harmful physical or emotional relationship or is someone making you feel afraid or unsafe? Denies 11/27/2024 Comments No Sex and Gender Information Value Date Recorded Sex Assigned at Not on file Legal Sex Female 1:17 AM BOOKBINDER APPRENTICE Gender Identity Not on file Sexual Orientation Not on file Occupation Industry Job Start Date Job End Date Disabled, used to work in [employer] Not on file Not on file Not on file Last Filed Vital Signs Vital Sign Reading Time Taken Comments Blood Pressure 151/82 11/27/2024 1:30 PM BOOKBINDER APPRENTICE Pulse 87 11/27/2024 1:30 PM BOOKBINDER APPRENTICE Temperature 37.2 C (99 F) 11/27/2024 11:58 AM BOOKBINDER APPRENTICE Respiratory Rate 15 11/27/2024 1:30 PM BOOKBINDER APPRENTICE Oxygen Saturation 99% 11/27/2024 1:30 PM BOOKBINDER APPRENTICE Inhaled Oxygen Concentration - - Weight 83.5 kg (184 lb) 11/27/2024 11:58 AM BOOKBINDER APPRENTICE Height 157.5 cm (5' 2 ) 11/27/2024 11:58 AM BOOKBINDER APPRENTICE Body Mass Index 33.65 11/27/2024 11:58 AM BOOKBINDER APPRENTICE Plan of Treatment Not on file Medical Devices Implanted Type Area Senior Architect Device Identifier Shelf Expiration Date Model / Serial / Lot [employer] Simplex P Radiopaque Full Dose Cement Bone Sterile 6191-1-010 - [id number] Implanted:Qty: 2 on 06/21/2023 by Baljinder Sage DO at [facility] [employer] 09/13/2025 [id number] / / [id number] [employer] Persona Cruciate Retaining Cemented Knee Right 7 Narrow Component [id number] - [id number] Implanted:Qty: 1 on 06/21/2023 by Baljinder Sage DO at [facility] [employer] [id number] 01/06/2033 [id number] / / [id number] [employer] [id number] Persona Natural Tibia Stem Knee Right 5d D Baseplate Tibial - [id number] Implanted:Qty: 1 on 06/21/2023 by Baljinder Sage DO at [facility] [employer] [id number] 03/29/2033 [id number] / / [id number] Explanted Type Area Senior Architect Device Identifier Shelf Expiration Date Model / Serial / Lot [employer] Persona 10mm Knee Right 6-7 C-D Insert Articular Vivacit-E [id number] - [id number] Explanted:Qty: 1 on 06/21/2023 at [facility] [employer] [id number] 11/30/2027 [id number] / / [id number] Procedures Procedure Name Priority Date/Time Associated Diagnosis Comments SURGICAL PATHOLOGY Routine 11/27/2024 1: 25 PM BOOKBINDER APPRENTICE Encounter for screening for malignant neoplasm of colon COLON BIOPSY 11/27/2024 12:32 PM BOOKBINDER APPRENTICE Encounter for screening for malignant neoplasm of colon COLONOSCOPY 11/27/2024 12:29 PM BOOKBINDER APPRENTICE POCT GLUCOSE DEVICE Routine 11/27/2024 1 1:50 AM BOOKBINDER APPRENTICE EGFR STAT 10/03/2024 3:47 PM BOOKBINDER APPRENTICE HEMOGLOBIN A1C Routine 04/04/2024 11:26 AM CDT Paresthesia of skin from Last 3 Months or Most Recently Relevant to Health Maintenance Results * Surgical pathology (11/27/2024 1:25 PM BOOKBINDER APPRENTICE) Tissue (Polyp(s), colon/colorectal, esophageal, gastric) 11/27/2024 12:50 PM BOOKBINDER APPRENTICE Narrative PATHOLOGY CH - 11/28/2024 3:53 PM BOOKBINDER APPRENTICE EPIC results best viewed via link to PDF [facility] Department of Pathology [address] [place] [id number] Note to Patients: This report may contain a detailed description of human tissue sent by a health care provider to the laboratory for pathologic evaluation. The content of this report is essential for diagnosis and may provide important critical findings. This information may be unfamiliar to patients to review without a medical professional present. It is advised that the patient review this report in the presence of a health care provider who can answer questions and explain the details. Final Report Patient Name: DOLLY LUCAS Address: [address] [place] [address] Gender: F : 1965 (Age: 58) Service: Gastro Location: GI Lab Hospital #: [id number] Patient Type: [facility] Taken: 11/27/2024 Received: 11/27/2024 Accessioned: 11/27/2024 Reported: 11/28/2024 Physician(s):Clarisse Garcia M.D. Diagnosis: Colon, descending, polypectomy: - Tubular adenoma. Jessica Vyas M.D. Report Electronically Reviewed and Signed Out By Jessica Vyas M.D. 11/28/2024 15:53:21 Specimen(s) Received: A: Descending colon polyp Microscopic Description: Microscopic examination of the descending colon shows a single tubular adenoma without evidence of high-grade dysplasia or malignancy. Clinical History: Encounter for screening for malignant neoplasm of colon Gross Description: The specimen is submitted in a single formalin filled container labeled DOLLY LUCAS and descending colon polyp . It is 1 fragment of mane tissue measuring 4 mm. All in one cassette. Oleksandr Agudelo R.N., P.A./Reva Tinsley M.D. REPORT IMAGES AND SCANNED DOCUMENTS, IF INCLUDED, ONLY VIEWABLE IN PDF VERSION OF REPORT The performance characteristics of some immunohistochemical stains, fluorescence in-situ hybridization tests and immunophenotyping by flow cytometry cited in this report (if any) were determined by the Surgical Pathology Department at [facility] as part of an ongoing manufacturing quality engineer program and in compliance with federally mandated regulations drawn from the Clinical Laboratory Improvement Act of 1988 (CLIA '88). Some of these tests rely on the use of analyte specific reagents and are subject to specific labeling requirements by the US Food and Drug Administration. Such diagnostic tests may only be performed in a facility that is certified by the Department of Health and Human Services as a high complexity laboratory under CLIA '88. The FDA has determined that such clearance or approval is not necessary. This test is used for clinical purposes. It should not be regarded as investigational or for research. Nevertheless, federal rules concerning the medical use of analyte specific reagents require that the following disclaimer be attached to the report: This test was developed and its performance characteristics determined by the Surgical Pathology Department [facility]. It has not been cleared or approved by the U. S. Food and Drug Administration. Note for decalcified specimens: This assay has not been validated on decalcified tissues. Results should be interpreted with caution given the possibility of false negativity on decalcified specimens Jairo Larry MD LAB PATHOLOGY ORDERABLES Final R esult PATHOLOGY [address] [place] [address] * Colonoscopy (11/27/2024 12:29 PM BOOKBINDER APPRENTICE) Anatomical Region Laterality Modality Other Narrative Procedure Note Jairo Larry MD - 11/27/2024 12:29 PM CST - [facility] Patient Name: Dolly Lucas Procedure Date: 11/27/2024 12:29 PM Date of : 1965 Admit Type: Outpatient Age: 58 Gender: Female Note Status: Finalized Attending MD: Jairo Larry M.D. Procedure Date: 11/27/2024 Procedure: Colonoscopy Indications: Screening for colorectal malignant neoplasm Providers: Jairo Larry M.D., Roxi Sullivan CRNA (Anesthesia Staff), Fay Squires RN, Jakob, Chrome Tanning Drum Operator Referring MD: Oliver Doan M.D. Medicines: Monitored Anesthesia Care Complications: No immediate complications. Estimated Blood Loss: Estimated blood loss: none. Procedure: Pre-Anesthesia Assessment: - Prior to the procedure, a History and Physicalwas performed, and patient medications and allergieswere reviewed. The patient is competent. The risks and benefits of the procedure and the sedation optionsand risks were discussed with the patient. Allquestions were answered and informed consent was obtained. Patient identification and proposed procedure were verified by the physician in the pre-procedurearea. Mental Status Examination: normal. AirwayExamination: normal oropharyngeal airway and neck mobility. Respiratory Examination: clear to auscultation. CV Examination: normal. Prophylactic Antibiotics: The patient does not require prophylactic antibiotics. Prior Anticoagulants: The patient has taken no anticoagulant or antiplatelet agents. ASA Grade Assessment: III - A patient with severe systemic disease. After reviewing the risks and benefits,the patient was deemed in satisfactory condition to undergo the procedure. The anesthesia plan was touse monitored anesthesia care (MAC). Immediately priorto administration of medications, the patient was re-assessed for adequacy to receive sedatives. The heart rate, respiratory rate, oxygen saturations, blood pressure, adequacy of pulmonary ventilation,and response to care were monitored throughout the procedure. The physical status of the patient was re-assessed after the procedure. - The risks and benefits of the procedure and the sedation options and risks were discussed with the patient. All questions were answered and informed consent was obtained. After I obtained informed consent, the scope was passed under direct vision. Throughout theprocedure, the patient's blood pressure, pulse, and oxygen saturations were monitored continuously. The scopewas passed under direct vision. The Colonoscope was introduced through the anus and advanced to the the cecum, identified by appendiceal orifice andileocecal valve. The colonoscopy was performed without difficulty. The patient tolerated the procedurewell. The quality of the bowel preparation was good. The ileocecal valve, appendiceal orifice, and rectumwere photographed. The bowel preparation used wasGoLYTELY via split dose instruction. Findings: A 5 mm polyp was found in the descending colon. The polyp wassessile. The polyp was removed with a cold biopsy forceps. Resection and retrieval were complete. Estimated blood loss: none. Many small-mouthed diverticula were found in the sigmoid colon. The exam was otherwise without abnormality. Impression: - One 5 mm polyp in the descending colon, removedwith a cold biopsy forceps. Resected and retrieved. - Diverticulosis in the sigmoid colon. mild - The examination was otherwise normal. Recommendation: - Await pathology results. - Repeat colonoscopy in 10 years forsurveillance. Procedure Code(s): --- Professional --- 20245, Colonoscopy, flexible; with biopsy, singleor multiple Diagnosis Code(s): --- Professional --- K57.30, Diverticulosis of large intestine without perforation or abscess without bleeding D12.4, Benign neoplasm of descending colon Z12.11, Encounter for screening for malignantneoplasm of colon CPT copyright 2020 [employer]. All rights reserved. The codes documented in this report are preliminary and upon candy maker reviewmay be revised to meet current compliance requirements. Dr. Jairo Larry MD Jairo Larry M.D. 11/27/2024 1:00:33 PM This report has been electronically signed by the physician. Number of Addenda: 0 Note Initiated On: 11/27/2024 12:29 PM Jairo Larry MD ENDOSCOPY PROCEDURES Edited Resu lt - Final * POCT glucose (11/27/2024 11:50 AM BOOKBINDER APPRENTICE) Glucose, POC 94 70 - 199 mg/dL Blood 11/27/2024 11:5 0 AM BOOKBINDER APPRENTICE 11/27/2024 11:50 AM BOOKBINDER APPRENTICE Jairo Larry MD LAB POCT ORDERABLES - DEVICE Fin al Result [facility] [address] Department [place] [address] * eGFR (10/03/2024 3:47 PM BOOKBINDER APPRENTICE) eGFR >90 >=60 mL/min/1. 73 m2 Comment: Interpretive Data Reference Interval Normal >/= 90 mL/min/1.73m2 Mildly decreased* 60 - 89 mL/min/1.73m2 Mildly to moderately decreased 45 - 59 mL/min/1.73m2 Moderately to severely decreased 30 - 44 mL/min/1.73m2 Severely decreased 15 - 29 mL/min/1.73m2 Kidney Failure < 15 mL/min/1.73m2 *Relative to young adult level Estimated glomerular filtration rate is determined by the 2020 CKD-EPI equation recommended by the National Kidney Foundation (A Unifying Approach to GFR Estimation: Recommendations of the NKF-ASK Task Force on Reassessing the Inclusion of Race in Diagnosing Kidney Disease, JASN 202). The CKD-EPI equation should not be used for patients with unstable renal function and has not been validated in children and those over 70. Current interpretive data was last reviewed 2021. Blood 10/03/2024 3:47 PM BOOKBINDER APPRENTICE 10/03/2024 3:50 PM BOOKBINDER APPRENTICE Kirsten NI LAB BLOOD ORDERABLES Final Result Performing Organization Address City/[facility] Co de Phone Number ANNE [address] [address] * Hemoglobin A1c (04/04/2024 11:26 AM CDT) Hgb A1C 5.6 4.0 - 5.6 % Estimated Average Glucose 114 mg/dL ANNE Comment: The ADA recommends reporting an estimated Average Glucose (eAG) with all Hemoglobin A1c results using the equation derived from a study of 507 normal and diabetic adults. Minority populations were underrepresented and children were not included. (Diabetes Care 31:8924-1257, 2008). The eAG is not equivalent to a fasting glucose. Blood 04/04/2024 11:2 6 AM CDT 04/04/2024 12:32 PM CDT Jose Logan MD LAB BLOOD ORDERABLES Final Resul t Performing Organization Address City/[facility] Co de Phone Number ANNE [address] [address] from Last 3 Months or Most Recently Relevant to Health Maintenance Insurance [facility] [place] [place] [address] Advance Directives For more information, please contact: [phone] * Full Code (Latest Code Status on File) Date Activated Date Inactivated Comments 06/21/2023 11:05 AM 06/23/2023 7:09 PM Care Teams Caterpillar Driver Relationship Specialty Start Date End Date Oliver Doan MD [address] [place] [address] PCP - General Internal Medicine 06/01/23 Jerilyn Tucker MD [address] [address] Consulting Physician Critical Care Med 05/26/23 Javon Hart MD [address] [place] [address] Consulting Physician Pulmonary Disease 06/09/23 Juliana Duenas PA [address] [address] Orthopedic Surgery 06/21/23
--- OUTSIDE RECORDS SUMMARY | 2025-01-16 08:54 | XMS_ITS | CONTINUITY OF CARE DOCUMENT ---
Author Name adeletova cooney Address Unknown Organization [facility] Address [address] [place] [address] Phone [phone] Care Team Providers Care Shim Plug Cutter Name Role Phone Gerber Brizuela MD Unavailable MODESTA CEBALLOS MD H Unavailable MODESTA CEBALLOS MD H Unavailable [phone] PROBLEMS Condition Status Date Provider Notes HTN active Alejandro Godfrey MD GERD active Gerber Brizuela MD PE active Gerber Brizuela MD Tobacco abuse active Alejandro Godfrey MD Pulmonary hypertensive arterial disease active Alejandro Godfrey MD Coagulation factor defect, H /o protein C deficiency completed - Alejandro Godfrey MD ENCOUNTERS Date Type Provider Location Encounter Diag nosis - In-person encounter Office Visit Gerber Brizuela MD [facility] PE[facility]D - In-person encounter Office Visit Alejandro Godfrey MD [facility] Coagulation factor defect, H/o protein C deficiency - In-person encounter Office Visit Alejandro Godfrey MD [facility] Pulmonary hypertensive arterial diseaseHTNTobacco abuse VITAL SIGNS Date Observation Value Provider Body Mass Index (Ratio) 35.60 kg/m2 Tatyana Huggins blood pressure, diastolic 80 mm[Hg] Li nkLogic blood pressure, systolic 138 mm[Hg] Corrie kLogic blood pressure, cuff size regular Cy kim Kunz blood pressure, diastolic 80 mm[Hg] Cy kim Kunz blood pressure, systolic 138 mm[Hg] Trina Kunz pulse rate 85 /min Dolly matamoros oxygen saturation, oximetry 98 % Dolly Kunz respiratory rate E&M 16 /min Dolly Kunz weight E&M 201 [lb_av] Dolly matamoros height E&M 63 [in_i] Dolly matamoros blood pressure, diastolic 85 mm[Hg] Fritz Rodrigues blood pressure, systolic 135 mm[Hg] Manuela Rodrigues pulse rate 90 /min Chelle coleman oxygen saturation, oximetry 97 % Chelle Rodrigues respiratory rate E&M 16 /min Diana Rodrigues Body Mass Index (Ratio) 34.11 kg/m2 RadhaTanya Rodrigues weight E&M 192.6 [lb_av] Chelle Geovany ebonie blood pressure, diastolic 80 mm[Hg] Id giovanna Bob blood pressure, systolic 119 mm[Hg] Valerie Bob pulse rate 87 /min Jessica Bob oxygen saturation, oximetry 99 % Jessica Bob respiratory rate E&M 16 /min Jessica Bob Body Mass Index (Ratio) 33.69 kg/m2 Jenn Bob weight E&M 190.2 [lb_av] Jessica Bob height E&M 63 [in_i] Jessica Bob ALLERGIES Allergy Name Onset Date Reaction Criticality Status TRAMADOL HCL Low Criticality active STATINS DEPLETION Low Criticality ac tive LEVAQUIN Low Criticality active IVP DYE Low Criticality active HISTORY OF MEDICATION USE Medication Status Instructions Dates Provider Indications Com ments Dulera 200-5 mcg/actuation HFA aerosol inhaler active Dolly Kunz lorazepam 0.5 mg tablet active TAKE 1 T ABLET BY MOUTH DAILY NEEDED FOR ANXIETY Dolly Kunz zolpidem 10 mg tablet active TAKE 1 TAB LET BY MOUTH EVERY DAY AT BEDTIME Dolly Kunz losartan 25 mg tablet active Take 1 tab let by mouth once a day Dolly Kunz metformin 500 mg tablet active TAKE 2 T ABLETS BY MOUTH EVERY MORNING AND 1 TABLET EVERY EVENING Dolly Kunz hydrocodone-acetaminoph en 7.5-325 mg tablet active TAKE 1 TABLET BY MOUTH TWICE DAILY NEEDED Dolly Kunz albuterol sulfate 90 mcg/actuation HFA aerosol inhaler active Inhale 2 puff as directed four times a day Dolly Kunz Eliquis 5 mg tablet active Take 1 table t by mouth once a day Dolly Kunz hydrochlorothiazide 25 mg tablet active Take 1 tablet by mouth once a day Dolly Kunz Norvasc 10 mg tablet active 1 tablet by mouth once a day Dolly Kunz ProAir HFA 90 mcg/actuation HFA aerosol inhaler active 2 puff every four hours as needed Dolly Kunz gabapentin 300 mg capsule active 1 tablet by mouth three times a day Dolly Kunz SOCIAL HISTORY Date Observation Value Provider social history E&M Alcohol Use - no D rug Use - no; prior h/o crack cocaine use; sober for 15 years Smoking History: P ash currently smokes every day. P ash has been counseled to quit. Gerber Brizuela MD social history reviewed E&M revi ewed - no changes required Gerber Brizuela MD smoking/tobacco cess ation, patient education and counseling yes Dolly Kunz smoking, date started 1992 Dallin Kunz smoking history, tot al pack/day 1/2 Dolly Kunz cigarette use yes Dolly sánchez smoking status Current every day smoker C nestor Kunz alcohol use no Chelle coleman smoking/tobacco cess ation, patient education and counseling yes Chelle Rodrigues drug use no hCelle coleman smoking, date started 1992 Monty Rodrigues smoking history, tot al pack/day 1/2 Chelle Rodrigues cigarette use yes Chelle loomis smoking status Current every day smoker Jeanne Rodrigues social history reviewed E&M revi ewed - no changes required Alejandro Godfrey MD smoking/tobacco cess ation, patient education and counseling yes Alejandro Godfrey MD social history E&M Alcohol Use - no D rug Use - no; prior h/o crack cocaine use; sober for 15 years Smoking History: P atient currently smokes every day. Alejandro Godfrey MD drug use no Alejandro Collazo alcohol use no Alejandro Collazo social history reviewed E&M revi ewed - no changes required Alejandro Godfrey MD smoking, date started 1992 Binh Bob smoking history, tot al pack/day 1/2 Jessica Bob cigarette use yes Jessica Bob smoking status Current every day smoker Jeanne Bob FAMILY HISTORY Family Member Condition Father Family History of Bl ood Clots Father Family History of Al coholism Mother Family History of Hy pertension Mother Family History of Br east Cancer INSURANCE PROVIDERS Payer name Policy type / Coverage type [facility] [employer] [place] [employer]ICA[employer] (2) Medicaid [id number] ADVANCE DIRECTIVES Name Date DISCUSSED - NO DECISION MADE TREATMENT PLAN Date Name Performer [id number],C,T he Patient was reencouraged to stop smoking. Yaz Huggins [id number],C,BP satisfacto ry. Yaz Joseluis [id number],C,P t continues to have chest pressure, relieved by burping. Yaz Huggins [id number],C,H ad recent ER visit. WAs told all tests were negative. Will call pt and discuss the results of ER visit once we have retrieved them. Yaz Huggins [facility] follow up :The Patient was reencouraged to stop smoking. Yazdaisy Landkyleonel [facility] follow up :B P satisfactory. Yazdaisy Landkyleonel [facility] follow up :Pt continues to have chest pressure, relieved by burping. Yaz Jacobskyleonel [facility] follow up :Had recent ER visit. WAs told all tests were negative. Will call pt and discuss the results of ER visit once we have retrieved them. Yaz Joseluis Hem/Onc:Patient coun seled on smoking cessation for 3 minutes. Alejandro Godfrey MD Hem/Onc:The patient had a negative hypercoaguable work up. Her protein C level was normal. She does not need anticoagulation at this time and may follow up as needed. Alejandro Godfrey MD Hem/Onc:I reviewed r ecords from [facility] as well at [facility]. It appears that the patient has a right sided arteriovenous malformation. This likely led to a false positive VQ scan in 2006 (large pefusion defect to RUL and RML). The patient had a protein C level checked while on coumadin which lead to erroneus low level. She has not had any further VTE not did she have a previous history of VTE. Given her positive family history of blood clots, I will perform a hypercoaguable work up. She will return in two weeks to review testing. Orders: P ROTEIN C ACTIVITY AND ANTIGEN (8757) P ROTEIN S ACTIVITY W/RFX PROTEIN S ANTIGEN (9138) A NTITHROMBIN III ACTIVITY AND ANTIGEN (7417) L UPUS ANTICOAGULANT EVALUATION WITH REFLEX (9194) A nticardiolipin Ab, IgA, Qn (619487) A nticardiolipin Ab, IgG, Qn (502698) A nticardiolipin Ab, IgM, Qn (528303) B 2-GLYCOPROTEIN I (IGA) AB (99708) B 2-GLYCOPROTEIN I (IGG) AB (20569) B 2-GLYCOPROTEIN I (IGM) AB (05976) F ACTOR V (LEIDEN) MUTATION ANALYSIS (50916) P ROTHROMBIN (FACTOR II) 17842Q>A MUTATION ANALYSIS (08502) Alejandro Godfrey MD Date Name PROTHROMBIN (FACTOR II) 02045R>A MUTATION ANALYSIS FACTOR V (LEIDEN) MU TATION ANALYSIS B2-GLYCOPROTEIN I (I GM) AB B2-GLYCOPROTEIN I (I GG) AB B2-GLYCOPROTEIN I (I GA) AB Anticardiolipin Ab, IgM, Qn Anticardiolipin Ab, IgG, Qn Anticardiolipin Ab, IgA, Qn LUPUS ANTICOAGULANT EVALUATION WITH REFLEX ANTITHROMBIN III ACT IVITY AND ANTIGEN PROTEIN S ACTIVITY W /RFX PROTEIN S ANTIGEN PROTEIN C ACTIVITY A ND ANTIGEN HISTORY OF PROCEDURES Procedure Date Procedure Name Provider Procedure Notes S tatus EKG Gerber Brizuela MD complet ed SNOMED-CT: 044957614 [id number] Current Medications Documented Alejandro Godfrey MD completed SNOMED-CT: 398127209 Smoking Cessation Counseling Alejandro Godfrey MD completed SNOMED-CT: 219308332 984702 Current Medications Documented Alejandro Godfrey MD completed
--- OUTSIDE RECORDS SUMMARY | 2025-01-16 08:54 | XMS_ITS | Encounter Summary ---
Author Organization [facility] Address Critical access hospital[address] [place] [address] Care Team Providers Care Dealer Compliance Representative Name Role Phone London Shahid MD Primary Care Provider [phone] Encounter Details Date Type Department Care Team (Late st Contact Info) Description 03/27/2019 Telephone [facility] [place] [address] [id number] Scanned, Documents Social History Tobacco Use Types Packs/Day Years Used Date Smoking Tobacco: Every Day Cigarettes 0.3 4 Smokeless Tobacco: Never Alcohol Use Standard Drinks/Week Comments Yes 0 (1 standard drink = 0.6 oz pur e alcohol) social Comments No Sex and Gender Information Value Date Recorded Sex Assigned at Not on file Legal Sex Female 8:04 PM CDT Gender Identity Not on file Sexual Orientation Not on file documented as of this encounter Progress Notes * Elmira Cedeno MA - 03/27/2019 12:30 PM CDT PT WAS REFERRED TO DR FARR BUT DENIED APPT DUE TO PATIENT'S PRIMARY REFERRING HER TO DR FRANKEL. SHE HAS AN APPOINTMENT SCHEDULE 04/23/19 [facility]. REFERRAL ON OUR END HAS BEEN CLOSED OUT documented in this encounter Plan of Treatment Not on file documented as of this encounter Visit Diagnoses Not on filedocumented in this encounter Care Teams Dealer Compliance Representative Relationship Specialty Start Date End Date London Shahid MD [address] [place] [address] PCP - General INTERNAL MEDICINE 09/28/18 documented as of this encounter
--- OUTSIDE RECORDS SUMMARY | 2025-01-16 08:54 | XMS_ITS | Clinical Summary ---
Author Organization [facility] Address [address] [place] [address] Care Team Providers Care Police Lieutenant Name Role Phone London Shahid MD Primary Care Provider [phone] Allergies Active Allergy Reactions Criticality Noted Date Comments Atorvastatin Anaphylaxis High 10/13/2018 All statins Iodine Anaphylaxis High 10/13/2018 Levofloxacin Anaphylaxis High 10/13/2018 Tramadol Anaphylaxis High 10/13/2018 Medications albuterol (2.5 MG/3ML) 0.083% nebulizer solution U 3 ML VIA NEB TID PRN 3 08/08/2018 Active ezetimibe 10 MG tablet TK 1 T PO QD FOR 90 DAYS 1 09/23/2018 Active fluticasone propionate 50 MCG/ACT nasal spray SHAKE LQ AND U 2 SPRAYS IEN QD UTD 11 11/25/2017 Active gabapentin 300 MG capsule TK 2 CS PO TID UTD 11 09/23/2018 Active hydrochlorothiaz alicia 25 MG tablet TK 1 T PO QD UTD FOR 90 DAYS 1 09/23/2018 Active losartan 25 MG tablet TK 1 T PO QD 2 09/23/2018 Active metFORMIN 500 MG 24 hr tablet TK 2 T PO QD 3 09/23/2018 Active DULERA 200-5 MCG/ACT Aerosol INHALE 1 PUFF PO QD 11 01/05/2018 Active PROAIR HFA 108 (90 Base) MCG/ACT inhaler INHALE 2 PUFFS PO Q 4 HOURS PRN 0 10/24/2018 Active cyclobenzaprine 10 MG tablet TK 1 T PO Q 8 H 0 06/21/2019 Active Active Problems Problem Noted Date Diagnosed Date Lumbar facet arthropathy 04/23/2019 Lumbar degenerative disc disease 04/23/2019 Lumbar disc herniation 04/23/2019 Sacroiliitis 04/23/2019 Lumbar radiculopathy 10/13/2018 Overview (10/13/2018): Added automatically from request for surgery [id number] Family History Medical History Relation Comments Breast Cancer Mother Relation Status Comments Mother Social History Tobacco Use Types Packs/Day Years Used Date Smoking Tobacco: Every Day Cigarettes 0.3 4 Smokeless Tobacco: Never Tobacco Cessation:Ready to Q uit: No; Counseling Given: Yes Alcohol Use Standard Drinks/Week Comments Yes 0 (1 standard drink = 0.6 oz pur e alcohol) social Comments No Sex and Gender Information Value Date Recorded Sex Assigned at Not on file Legal Sex Female 8:04 PM CDT Gender Identity Not on file Sexual Orientation Not on file Last Filed Vital Signs Vital Sign Reading Time Taken Comments Blood Pressure 130/78 07/26/2019 10:18 AM CDT Pulse 68 07/26/2019 10:18 AM CDT Temperature 36.4 C (97.5 F) 06/12/2019 10:13 AM CDT Respiratory Rate 18 06/12/2019 10:52 AM CDT Oxygen Saturation 96% 07/26/2019 10:18 AM CDT Inhaled Oxygen Concentration - - Weight 91 kg (200 lb 9.6 oz) 07/26/2019 10:18 AM CDT Height 160 cm (5' 3 ) 07/26/2019 10:18 AM CDT Body Mass Index 35.53 07/26/2019 10:18 AM CDT Plan of Treatment Health Maintenance Due Date Last Done Comments Colorectal Cancer Screening Colonoscopy (10 Years) 1965 Annual Physical 1968 Pneumococcal Vaccine: Pediat rics (0 to 5 Years) and At-Risk Patients (6 to 64 Years) (1 of 2 - PCV) 1971 Hepatitis C 1983 DTaP, Tdap and Td Vaccines ( 1 - Tdap) 1984 Hepatitis B Vaccines (1 of 3 - 19+ 3-dose series) 1984 Mammogram Screening 2005 Zoster Vaccines (1 of 2) 2015 COVID-19 Vaccine (1 - 2023-2 5 season) 2024 Influenza Adult (#1) 2024 Meningococcal B Vaccine Aged Out No l onger eligible based on patient's age to complete this topic Meningococcal Vaccine Aged Out No fran nathalie eligible based on patient's age to complete this topic RSV Immunizations Under 20 Months Aged Out No longer eligible based on patient's age to complete this topic Insurance [place] Care Teams Police Lieutenant Relationship Specialty Start Date End Date London Shahid MD [address] [place] [address] PCP - General INTERNAL MEDICINE 09/28/18
--- OUTSIDE RECORDS SUMMARY | 2025-01-16 08:54 | XMS_ITS | Clinical Summary ---
Author Organization [facility] [place] [address] Address [address] [place] [address] Care Team Providers Care Sandwich Hand Name Role Phone Jerilyn Tucker MD Unavailable [phone] Oliver Doan MD Primary Care Provider [phone] Javon Hart MD Unavailable [phone] Juliana Duenas Unavailable [phone] Allergies Active Allergy Reactions Criticality Noted Date [...] 10/17/2024 Assessment & Plan (10/17/2024 3:26 PM FLAVOR MAKER): - Contraception: hysterectomy - STI screening discussed. [...] 10/17/2024 Assessment & Plan (10/17/2024 3:39 PM FLAVOR MAKER): We discussed symptoms of both perimenopause and [...] 06/21/2023 Assessment & Plan (09/21/2023 12:00 PM FLAVOR MAKER): Discussed with the patient that her x-rays [...] (08/03/2023): Added automatically from request for surgery [id number] Added automatically from request for surgery [id number] Hypertension 01/01/2016 Pulmonary arterial hypertension 01/01/2016 Tobacco dependence syndrome 01/01/2016 Knee pain 04/23/2015 Encounters Date Type Department Care Team Description 12/20/2024 Orders Only [facility] Primary Care at [facility] [address] [facility] [address] [place] [phone] Kendal Morin NP 12/17/2024 Telephone [facility] [address] [facility] [address] [place] [phone] Marti Ayala MD 12/05/2024 Telephone [facility] Gastroenterology at [facility] [id number] [place] [address] [address] [address] Jairo Larry MD 11/27/2024 12:32 PM FLAVOR MAKER Anesthesia Event [facility] GI Lab [id number] [place] [address] Herminio Gomez MD 11/27/2024 12:30 PM FLAVOR MAKER - 11/27/2024 1:00 PM FLAVOR MAKER Surgery [facility] GI Lab [address] [place] [address] Jairo Larry MD COLON BIOPSY 11/27/2024 11:22 AM FLAVOR MAKER - 11/27/2024 1:52 PM FLAVOR MAKER Hospital Encounter [facility] GI Lab [address] [place] [address] Jairo Laryr MD Encounter for screening for malignant neoplasm of colon Discharge Disposition: Discharge to home or self care 10/25/2024 Telephone [facility] Gastroenterology at [facility] [address] [facility] [address] [place] [address] Jairo Larry MD from Last 3 Months Immunizations Immunization Administration Dates Next Due Pfizer SARS-CoV-2 Monovalent Vaccination (12+ Yrs) PURPLE 02/12/2021 Surgical History Surgery Date Site/Laterality Comments NC TOTAL ABDOMINAL HYSTERECT W/WO RMVL TUBE OVARY Hysterectomy - (Added by TW Conv) [place] OOPHORECTOMY PARTIAL/TOTA L UNI/BI Oophorectomy Unilateral Left Side - (Added by TW Conv) NC DELIVERY ONLY x2 CHOLECYSTECTOMY lap MULTIPLE TOOTH EXTRACTIONS COLONOSCOPY KNEE SURGERY 06/21/2023 Right Medical History Medical History Date Comments Allergic rhinitis Chronic bronchitis (HCC) Asthma COPD (chronic obstructive pu lmonary disease) (HCC) GERD (gastroesophageal reflux disease) pepcid daily and tums prn Sickle cell anemia (HCC) trait o nly Hypertension History of pulmonary embolism on eliquis Wears partial dentures top RLS (restless legs syndrome) Type 2 diabetes mellitus (HCC) M etformin and weekly Ozempic, denies: CGM, insulin, pump Lumbar facet arthropathy DDD (degenerative disc disease), lumbar Anterolisthesis of lumbar spine Family History Medical History Relation Name Comments Arthritis Brother 1 Family history of arthritis - (Added by TW Conv) Hypertension Brother 2 Family history of hypertension - (Added by TW Conv) Alcohol abuse Father Family history of alcoholism - (Added by TW Conv) Blood Clot Father Family history of blood clots - (Added by TW Conv) Arthritis Mother Family history of arthritis - (Added by TW Conv) Breast cancer Mother s/p bilateral mastectomy Hypertension Sister 1 Family history of hypertension - (Added by TW Conv) Diabetes Sister 2 Family history of diabetes mellitus - (Added by TW Conv) Colon cancer Neg Hx Ovarian cancer Neg Hx Uterine cancer Neg Hx Relation Name Status Comments Brother 1 Brother 2 Father Mother Sister 1 Sister 2 Social History Tobacco Use Types Packs/Day Years [...] often do you attend chur ch or caodaism services? Never 06/22/2023 Do you belong to any clubs o r organizations such as worship groups, unions, fraternal or athletic groups, or [...] on file Legal Sex Female 1:17 AM FLAVOR MAKER Gender Identity Not on file Sexual Orientation Not on file Occupation Industry Job Start Date Job End Date Disabled, used to work in [employer] Not on file Not on file Not on file Obstetrics History Para Term AB IAB SAB Ectopic Multiple Livin g Live Births 5 3 3 2 1 3 3 Date Outcome GA Total Labor Labor/2nd/3rd Weight Sex Type Anes PTL Shi A1 A5 Name Clin Ectopic Term Term Term AB D&C Last Filed Vital Signs Vital Sign Reading Time Taken Comments Blood Pressure 151/82 11/27/2024 1:30 PM FLAVOR MAKER Pulse 87 11/27/2024 1:30 PM FLAVOR MAKER Temperature 37.2 C (99 F) 11/27/2024 11:58 AM FLAVOR MAKER Respiratory Rate 15 11/27/2024 1:30 PM FLAVOR MAKER Oxygen Saturation 99% 11/27/2024 1:30 PM FLAVOR MAKER Inhaled Oxygen Concentration - - Weight 83.5 kg (184 lb) 11/27/2024 11:58 AM FLAVOR MAKER Height 157.5 cm (5' 2 ) 11/27/2024 11:58 AM FLAVOR MAKER Body Mass Index 33.65 11/27/2024 11:58 AM FLAVOR MAKER Plan of Treatment Health Maintenance Due Date Last Done Comments Albumin Creatinine Ratio, Urine 1965 Breast Cancer Screening-Mammogram 1965 Depression Screening 1965 Hepatitis C Screening 1965 Dilated Eye Exam 1965 Foot Exam 1965 Lipid Panel 1965 Hepatitis B Screening 1983 Pneumococcal vaccine <65 (1 of 2 - PCV) 1984 Zoster Vaccine (1 of 2) 2015 Covid-19 Vaccine (2023-2 5 season) 2024 07/08/2021, 02/12/2021 Hemoglobin A1C 10/05/2024 04/04/2024, 06/09/2023 eGFR 10/03/2025 10/03/2024, 08/0 07/2023, 06/21/2023, Additional history exists Regular Well Visit/Exam 18-64 10/17/2025 10/17/2024 DTaP/Tdap/Td Vaccine (3 - Td or Tdap) 03/13/2028 03/13/2018, 11/14/2007 Colon Cancer Screening-Colonoscopy 11/27/2034 11/27/2024 Influenza Vaccine Completed 07/30/2024, , 10/19/2019, Additional history exists Colon Cancer Screening-CT Colonography Discontinued 11/27/2024 Colon Cancer Screening-DNA Stool Discontinued 11/27/19 Colon Cancer Screening-FIT Discontinued 11/27/2024 Colon Cancer Screening-Sigmoidoscopy Discontinued 11/27/2024 Medical Devices Implanted Type Area Air Crew Member Device Identifier Shelf Expiration Date Model / Serial / Lot [employer] Simplex P Radiopaque Full Dose Cement Bone Sterile 6191-1-010 - [id number] Implanted:Qty: 2 on 06/21/2023 by Baljinder Sage DO at [facility] [employer] 09/13/2025 6191-1-010 / / [id number] [employer] Persona Cruciate Retaining Cemented Knee Right 7 Narrow Component [id number] - [id number] Implanted:Qty: 1 on 06/21/2023 by Baljinder Sage DO at [facility] [employer] [id number] 01/06/2033 [id number] / / [id number] [employer] [id number] Persona Natural Tibia Stem Knee Right 5d D Baseplate Tibial - [id number] Implanted:Qty: 1 on 06/21/2023 by Baljinder Sage DO at [facility] [employer] [id number] 03/29/2033 [id number] / / [id number] Explanted Type Area Air Crew Member Device Identifier Shelf Expiration Date Model / Serial / Lot [employer] Persona 10mm Knee Right 6-7 C-D Insert Articular Vivacit-E [id number] - [id number] Explanted:Qty: 1 on 06/21/2023 at [facility] [employer] [id number] 11/30/2027 [id number] / / [id number] Procedures Procedure Name Priority Date/Time Associated Diagnosis Comments SURGICAL PATHOLOGY Routine 11/27/2024 1: 25 PM FLAVOR MAKER Encounter for screening for malignant neoplasm of colon COLON BIOPSY 11/27/2024 12:32 PM FLAVOR MAKER Encounter for screening for malignant neoplasm of colon COLONOSCOPY 11/27/2024 12:29 PM FLAVOR MAKER POCT GLUCOSE DEVICE Routine 11/27/2024 1 1:50 AM FLAVOR MAKER EGFR STAT 10/03/2024 3:47 PM FLAVOR MAKER HEMOGLOBIN A1C Routine 04/04/2024 11:26 AM CDT Paresthesia of skin from Last 3 Months or Most Recently Relevant to Health Maintenance Results * Surgical pathology (11/27/2024 1:25 PM FLAVOR MAKER) Tissue (Polyp(s), colon/colorectal, esophageal, gastric) 11/27/2024 12:50 PM FLAVOR MAKER Narrative PATHOLOGY CH - 11/28/2024 3:53 PM FLAVOR MAKER [facility] results best viewed via link to PDF [facility] Department of Pathology [address] [place] [address] Note to Patients: This report may [...] Final Report Patient Name: DOLLY LUCAS Address: [address] [place] [address] Gender: F : 1965 (Age: 58) Service: Gastro Location: GI Lab [facility] #: [id number] Patient Type: [facility] Taken: 11/27/2024 Received: 11/27/2024 Accessioned: 11/27/2024 [...] the Surgical Pathology Department at [facility] as part of an ongoing quality control microbiology supervisor program and in compliance with federally mandated [...] characteristics determined by the Surgical Pathology Department [facility]. It has not been cleared or approved by the U. S. Food and Drug Administration. Note for decalcified specimens: This assay has not been validated on decalcified tissues. Results should be interpreted with caution given the possibility of false negativity on decalcified specimens Jairo Larry MD LAB PATHOLOGY ORDERABLES Final R esult PATHOLOGY [address] [place] [address] * Colonoscopy (11/27/2024 12:29 PM FLAVOR MAKER) Anatomical Region Laterality Modality Other Narrative Procedure Note Jairo Larry MD - 11/27/2024 12:29 PM CST [facility] Endoscopy Lab Patient Name: Dolly Lucas Procedure Date: 11/27/2024 12:29 PM Date of : 1965 Admit Type: Outpatient Age: 58 Gender: Female Note Status: Finalized Attending MD: Jairo Larry M.D. Procedure Date: 11/27/2024 Procedure: Colonoscopy Indications: Screening for colorectal malignant neoplasm Providers: Jairo Larry M.D., Roxi Sullivan CRNA (Anesthesia Staff), Fay Squires RN, Jakob, Certified Real Estate Appraiser Referring MD: Oliver Doan M.D. Medicines: Monitored [...] results. [facility] Procedure Code(s): --- Professional --- 53044, Colonoscopy, flexible; with biopsy, singleor multiple Diagnosis Code(s): --- Professional --- K57.30, Diverticulosis of large intestine without perforation or abscess without bleeding D12.4, Benign neoplasm of descending colon Z12.11, Encounter for screening for malignantneoplasm of colon CPT copyright 2020 [employer]. All rights reserved. The codes documented in this report are preliminary and upon fitter and turner reviewmay be revised to meet current compliance requirements. Dr. Jairo Larry MD Jairo Larry M.D. 11/27/2024 1:00:33 PM This report has been electronically signed by the physician. Number of Addenda: 0 Note Initiated On: 11/27/2024 12:29 PM Jairo Larry MD ENDOSCOPY PROCEDURES Edited Resu lt - Final * POCT glucose (11/27/2024 11:50 AM FLAVOR MAKER) Glucose, POC 94 70 - 199 mg/dL Blood 11/27/2024 11:5 0 AM FLAVOR MAKER 11/27/2024 11:50 AM FLAVOR MAKER Jairo Larry MD LAB POCT ORDERABLES - DEVICE Fin al Result ANNE JORDAN [address] [address] Department [place] [address] * eGFR (10/03/2024 3:47 PM FLAVOR MAKER) eGFR >90 >=60 mL/min/1. 73 m2 Comment: [...] of Race in Diagnosing Kidney Disease, JASN 2020). The CKD-EPI equation should not be used for patients with unstable renal function and has not been validated in children and those over 70. Current interpretive data was last reviewed 2021. Blood 10/03/2024 3:47 PM FLAVOR MAKER 10/03/2024 3:50 PM FLAVOR MAKER Kirsten NI LAB BLOOD ORDERABLES Final Result Performing Organization Address City/[facility] de Phone Number [address] [address] * Hemoglobin A1c (04/04/2024 11:26 AM CDT) Hgb A1C 5.6 4.0 - 5.6 % Estimated Average Glucose 114 mg/dL ANNE Comment: The ADA recommends reporting an estimated Average Glucose (eAG) with all Hemoglobin A1c results using the equation derived from a study of 507 normal and diabetic adults. Minority populations were underrepresented and children were not included. (Diabetes Care 31:1545-8211, 2008). The eAG is not equivalent to a fasting glucose. Blood 04/04/2024 11:2 6 AM CDT 04/04/2024 12:32 PM CDT Jose Logan MD LAB BLOOD ORDERABLES Final Resul t Performing Organization Address City/[facility] Co de Phone Number [place] [phone] [facility] [place] [address] from Last 3 Months or Most Recently Relevant to Health Maintenance Insurance [facility] Advance Directives For more information, please contact: [phone] * Full Code (Latest Code Status on File) Date Activated Date Inactivated Comments 06/21/2023 11:05 AM 06/23/2023 7:09 PM Care Teams Sandwich Hand Relationship Specialty Start Date End Date Oliver Doan MD [address] [place] [address] PCP - General Internal Medicine 06/01/23 Jerilyn Tucker MD [address] [address] Consulting Physician Critical Care Med 05/26/23 Javon Hart MD [address] [place] [address] Consulting Physician Pulmonary Disease 06/09/23 Juliana Duenas PA [address] [address] Orthopedic Surgery 06/21/23
[2025-01-16 08:58] LABS: Hematocrit 39.7 % (37.0-47.0); Hemoglobin 13.4 g/dL (12.0-15.0); Mean Corpuscular HGB Conc 33.8 g/dl (32-36); Mean Corpuscular Hemoglobin 28.5 pg (26-34); Mean Corpuscular Volume 84.5 fl (80-100); Mean Platelet Volume 11.2 fl (7.4-10.4); Platelet Count Result 253 k/mm3 (150-375); Red Cell Distribution Width 13.6 % (11.5-14.5); White Blood Count 7.7 K/mm3 (4.5-10.0)
[2025-01-16 09:11] LABS: Alanine Aminotransferase 21 U/L (6-35); Albumin Level 4.5 g/dL (3.5-5.1); Alkaline Phosphatase 97 U/L (38-126); Anion Gap 7 mmol/L (4-12); Aspartate Amino Transferase 21 U/L (14-36); Bilirubin,Total 1.3 mg/dL (0.2-1.3); Blood Urea Nitrogen 17 mg/dL (7-17); Calcium 9.7 mg/dL (8.4-10.2); Carbon Dioxide 30 mmol/L (22-30); Chloride 102 mmol/L (98-107); Cholesterol 267 mg/dL (0-200); Estimated Glomerular Filt Rate > 60; Glucose 100 mg/dL (65-110); HDL Direct 61 mg/dL; Potassium 4.1 mmol/L (3.4-5.0); Sodium 139 mmol/L (137-145); Triglycerides 106 mg/dL (<150)
[2025-01-16 09:15] LABS: Hemoglobin A1C 5.7 % (<5.7)
[2025-01-16 09:21] LABS: LDL Cholesterol Direct 138 mg/dL
[2025-01-16 09:28] LABS: Iron 100 ug/dL (37-170); Percent Iron Saturation 25 % (20-50)
[2025-01-16 09:52] LABS: Free T4 Free Thyroxine 0.95 ng/dL (0.78-2.19); Vitamin D 25 Hydroxy 14.2 ng/mL
[2025-01-16 10:14] LABS: Folic Acid 7.3 ng/mL (2.76->20)
== END 2025-01-16 08:33 | disposition home or self-care (01) ==
LOC: ANHLAB 08:35
PROVIDERS: PCP Internal Medicine; Visit Provider Internal Medicine
DX: E11.65 Type 2 diabetes mellitus with hyperglycemia (principal); I10 Essential (primary) hypertension; M48.061 Spinal stenosis, lumbar region without neurogenic claudication; J45.20 Mild intermittent asthma, uncomplicated; I26.99 Other pulmonary embolism without acute cor pulmonale; B02.23 Postherpetic polyneuropathy; M17.0 Bilateral primary osteoarthritis of knee
CPT/HCPCS: 36415; 80053; 80061; 82306; 82607; 82746; 83036; 83540; 83550; 84439; 84443; 85027

== ENCOUNTER 2025-02-06 11:38 | Emergency (ER) | payer OTHER, SELFPAY ==
--- NOTE | ~2025-02-06 | US_ITS ---
EXAMINATION: US venous doppler LE RT DATE: 02/06/2025 12:40 INDICATION: Right lower limb pain. TECHNIQUE: Grayscale ultrasound images without and with compression and Doppler ultrasound images of the right lower extremity veins were obtained. COMPARISON: Ultrasound 05/19/20 FINDINGS: The visualized portions of right common femoral vein, profunda (deep) femoral vein, femoral vein, pop liteal vein, peroneal veins, posterior tibial veins, and greater saphenous vein outflow are patent. IMPRESSION: 1. No deep venous thrombosis. Reviewed, dictated and finalized at location A.
[2025-02-06 11:40] VITALS: BP 174/88; PULSE 96; RESP 18; TEMP 37; O2SAT 98
[2025-02-06 12:57] LABS: Basophils Percent Auto 0.2 % (0.2-1.2); Eosinophils Absolute Auto 0.1 K/mm3 (0-0.3); Eosinophils Percent Auto 0.8 % (0-4.4); Hematocrit 37.7 % (37.0-47.0); Hemoglobin 12.8 g/dL (12.0-15.0); Immature Granulocyte Absolute 0.02 K/mm3 (0.00-0.031); Immature Granulocyte Percent A 0.2 % (0-0.5); Lymphocytes Absolute Auto 2.06 K/mm3 (0.9-3.2); Lymphocytes Percent Auto 22.3 % (18.3-44.2); Mean Corpuscular Hemoglobin 28.5 pg (26-34); Mean Platelet Volume 11.4 fl (7.4-10.4); Monocytes Absolute Auto 0.4 K/mm3 (0.1-0.6); Monocytes Percent Auto 4.3 % (2.6-8.5); Neutrophils Absolute Auto 6.7 K/mm3 (1.3-6.7); Neutrophils Percent Auto 72.2 % (45.5-73.1); Platelet Count Result 233 k/mm3 (150-375); Red Blood Count 4.49 M/mm3 (4.2-5.4); Red Cell Distribution Width 13.8 % (11.5-14.5); White Blood Count 9.2 K/mm3 (4.5-10.0)
[2025-02-06 13:09] LABS: Anion Gap 4 mmol/L (4-12); Blood Urea Nitrogen 12 mg/dL (7-17); Calcium 9.2 mg/dL (8.4-10.2); Carbon Dioxide 28 mmol/L (22-30); Chloride 108 mmol/L (98-107); Estimated CRCL calculation 70 ml/min; Estimated Glomerular Filt Rate > 60; Glucose 105 mg/dL (65-110); Sodium 140 mmol/L (137-145)
--- OUTSIDE RECORDS SUMMARY | 2025-02-06 13:09 | XMS_ITS | Clinical Summary ---
Author Organization [facility] [place] [address] Address [address] [place] [address] Care Team Providers Care Lost Charge Card Clerk Name Role Phone Jerilyn Tucker MD Unavailable [phone] Oliver Doan MD Primary Care Provider [phone] Javon Hart MD Unavailable [phone] Juliana Duenas Unavailable [phone] Allergies Active Allergy Reactions Criticality Noted Date Comments Atorvastatin Anaphylaxis High 10/13/2018 All statins Iodinated Contrast Media Hives Medium 03/02/2021 Iodine Hives High Reaction: Hives, Levofloxacin Rash Low 01/01/2016 Reaction: Rash, Tramadol Anaphylaxis High 10/13/2018 Medications Dulera 200-5 mcg/actuation inhaler 1 Active losartan (COZAAR) 25 mg tablet Take 1 tablet (25 mg total) by mouth daily 0 Active OneTouch Delica Plus Lancet 33 gauge misc 0 Active hydroCHLOROthi azide (HYDRODIURIL) 25 mg tablet Take 1 tablet (25 mg total) by mouth daily 0 Active OneTouch Verio test strips strip 1 Active cyclobenzaprin e (FLEXERIL) 10 mg tablet Take 1 tablet (10 mg total) by mouth 2 (two) times a day as needed for muscle spasms 9 Active diphenoxylate- atropine (LOMOTIL) 2.5-0.025 mg per tablet Take 1 tablet by mouth daily as needed Active famotidine (PEPCID) 40 mg tablet Take 1 tablet (40 mg total) by mouth daily Active fluticasone propionate (FLONASE) 50 mcg/actuation nasal spray Administer 1 spray into each nostril daily as needed for allergies 8 Active promethazine (PHENERGAN) 12.5 mg tablet Take 1 tablet (12.5 mg total) by mouth every 6 (six) hours as needed for nausea Active albuterol HFA (PROVENTIL HFA,VENTOLIN HFA,PROAIR HFA) 90 mcg/actuation inhaler Inhale 2 puffs every 4 (four) hours as needed 3 Active Ozempic 1 mg/dose (4 mg/3 mL) pen injector injection Inject 1 mg under the skin once a week saturdays 3 Active Spiriva Respimat 1.25 mcg/actuation inhaler Inhale 2 puffs daily 3 Active Symbicort 160-4.5 mcg/actuation inhaler Inhale 2 puffs 2 (two) times a day 3 Active calcium carbonate (TUMS) 500 mg (200 mg elemental iron) chewable tablet Take 1 tablet/chew tab (500 mg total) by mouth daily as needed for indigestion or heartburn Active nystatin 100,000 unit/mL suspension 3 Active albuterol 1.25 mg/3 mL nebulizer solution USE 1 VIAL VIA NEBULIZER EVERY 4-6 HOURS NEEDED 3 Active Eliquis 5 mg tablet 3 Active metFORMIN XR (GLUCOPHAGE XR) 500 mg 24 hr tablet 3 Active acyclovir (ZOVIRAX) 400 mg tablet 3 Active gabapentin (NEURONTIN) 300 mg capsule Take by mouth A ctive lidocaine (LIDODERM) 5 % APPLY 1 PATCH TOPICALLY TO THE SKIN EVERY 12 HOURS 4 Active benzonatate (TESSALON) 200 mg capsule Take 1 capsule (200 mg total) by mouth 3 (three) times a day as needed for cough 60 capsule 4 Active predniSONE (DELTASONE) 10 mg tablet Take 4 tablets by mouth x 3 days. Then take 3 tablets by mouth x 3 d. Then take 2 tablets by mouth x 3 d. Then take 1 tablet by mouth x 3 d. 30 tablet 4 Active gabapentin (NEURONTIN) 100 mg capsule Take 2 capsules (200 mg total) by mouth nightly 4 Active albuterol 0.63 mg/3 mL nebulizer solution USE 1 VIAL VIA NEBULIZER EVERY 4 TO 6 HOURS NEEDED 4 Active naloxone (NARCAN) 4 mg/actuation spray,non-aero bay USE 1 NEEDED FOR OVERDOSE. MAY REPEAT 2ND DOSE IF NEEDED. CALL 911 AFTER ADMINISTRATION 4 Active HYDROcodone-ac etaminophen (XODOL) 7.5-300 mg per tablet Active HYDROcodone-ac etaminophen (NORCO) 7.5-325 mg per tablet Take 1 tablet by mouth every 8 (eight) hours as needed 4 Active fluconazole (DIFLUCAN) 100 mg tablet Take 1.5 tablets (150 mg total) by mouth daily 4 Active polyethylene glycol (GoLYTELY) 236-22.74-6.74 -5.86 gram solution Mix as directed. At 4:00 pm, begin drinking one half of the mixed solution; you will have until 7:00 pm to finish. At 10 pm drink the second half of the mixed solution, you have till midnight to finish. 4000 mL 4 Active bisacodyl EC (DULCOLAX EC) 5 mg EC tabletIndicati ons:constipati on At 7 pm, take all four tablets at once with a glass of water. 4 tablet 4 Active venlafaxine XR (EFFEXOR-XR) 75 mg 24 hr capsule Take 1 capsule (75 mg total) by mouth daily 30 capsule 11 5 Active Active Problems Problem Noted Date Diagnosed Date Encounter for screening for malignant neoplasm o f colon 10/25/2024 Well woman exam 10/17/2024 Assessment & Plan (10/17/2024 3:26 PM ARTILLERY SPECIALIST): - Contraception: hysterectomy - STI screening discussed. [...] 10/17/2024 Assessment & Plan (10/17/2024 3:39 PM ARTILLERY SPECIALIST): We discussed symptoms of both perimenopause and [...] 06/21/2023 Assessment & Plan (09/21/2023 12:00 PM ARTILLERY SPECIALIST): Discussed with the patient that her x-rays [...] (08/03/2023): Added automatically from request for surgery [id number] Added automatically from request for surgery [id number] Hypertension 01/01/2016 Pulmonary arterial hypertension 01/01/2016 Tobacco dependence syndrome 01/01/2016 Knee pain 04/23/2015 Encounters Date Type Department Care Team Description 01/23/2025 1:45 PM CDT Office Visit [facility] at [address], [address] Medical Office [address] [place] [address] Marti Ayala MD Vasomotor symptoms due to menopause (Primary Dx) 12/20/2024 Orders Only [facility] Primary Care at [facility] - [address] [place] [address] [place] [address] Kendal Morin NP 12/17/2024 Telephone [facility] OBGYN [address] [place] [address] [address] [place] [address] Marti Ayala MD 12/05/2024 Telephone [facility] Gastroenterology at [address] [place] [phone] Jairo Larry MD 11/27/2024 12:32 PM ARTILLERY SPECIALIST Anesthesia Event [facility] [address] [place] [address] Herminio Gomez MD 11/27/2024 12:30 PM ARTILLERY SPECIALIST - 11/27/2024 1:00 PM ARTILLERY SPECIALIST Surgery [facility] [address] [place] [address] Jairo Larry MD COLON BIOPSY 11/27/2024 11:22 AM ARTILLERY SPECIALIST - 11/27/2024 1:52 PM ARTILLERY SPECIALIST Hospital Encounter [facility] [address] [place] [address] Jairo Larry MD Encounter for screening for malignant neoplasm of colon Discharge Disposition: Discharge to home or self care from Last 3 Months Immunizations Immunization Administration Dates Next Due Pfizer SARS-CoV-2 Monovalent Vaccination (12+ Yrs) PURPLE 02/12/2021 Surgical History Surgery Date Site/Laterality Comments CA TOTAL ABDOMINAL HYSTERECT W/WO RMVL TUBE OVARY Hysterectomy - (Added by TW Conv) CA OOPHORECTOMY PARTIAL/TOTA L UNI/BI Oophorectomy Unilateral Left Side - (Added by TW Conv) CA DELIVERY ONLY x2 CHOLECYSTECTOMY lap MULTIPLE TOOTH EXTRACTIONS COLONOSCOPY KNEE SURGERY 06/21/2023 Right LASIK 2019 HYSTERECTOMY 2007 SECTION 1988 and 1994 Medical History Medical History Date Comments Allergic [...] disc disease), lumbar Anterolisthesis of lumbar spine Clotting disorder Anxiety Family History Medical History Relation Name Comments Arthritis Brother 1 Roger Gomez Family hist ory of arthritis - (Added by TW Conv) Hypertension Brother 2 Brother Family history of hypertension - (Added by TW Conv) Alcohol abuse Father Family history of alcoholism - (Added by TW Conv) Blood Clot Father Family history of blood clots - (Added by TW Conv) Arthritis Mother Family history of arthritis - (Added by TW Conv) Breast cancer Mother s/p bilateral mastectomy Cancer Mother Hypertension Sister 1 Sister Family history of hypertension - (Added by TW Conv) Diabetes Sister 2 Kylee Gomez Family h istory of diabetes mellitus - (Added by TW Conv) Colon cancer Neg Hx Ovarian cancer Neg Hx Uterine cancer Neg Hx Relation Name Status Comments Brother 1 Roger Gomez Brother 2 Brother Father Mother Sister 1 Sister Sister 2 Kylee Gomez Social History Tobacco Use Types Packs/Day Years [...] often do you attend chur ch or rastafari services? Never 06/22/2023 Do you belong to any clubs o r organizations such as sikhism groups, unions, fraternal or athletic groups, or [...] place to sleep or slept in a nursing home (including now)? No 06/22/2023 Personal Safety Answer Date Recorded Have you ever been in or are you currently in a harmful physical or emotional relationship or is someone making you feel afraid or unsafe? Denies 11/27/2024 Comments No Sex and Gender Information Value Date Recorded Sex Assigned at Not on file Legal Sex Female 1:17 AM ARTILLERY SPECIALIST Gender Identity Not on file Sexual Orientation Not on file Occupation Industry Job Start Date Job End Date Disabled, used to work in [employer] Not on file Not on file Not on file Obstetrics History Para Term AB IAB SAB Ectopic Multiple Livin g Live Births 5 3 3 2 1 3 3 Date Outcome GA Total Labor Labor/2nd/3rd Weight Sex Type Anes PTL Shi A1 A5 Name Clin Ectopic Term Term Term AB D&C Last Filed Vital Signs Vital Sign Reading Time Taken Comments Blood Pressure 124/72 01/23/2025 1:21 PM CDT Pulse 98 01/23/2025 1:21 PM CDT Temperature 37.2 C (99 F) 11/27/2024 11:58 AM ARTILLERY SPECIALIST Respiratory Rate 18 01/23/2025 1:21 PM CDT Oxygen Saturation 97% 01/23/2025 1:21 PM CDT Inhaled Oxygen Concentration - - Weight 84.4 kg (186 lb 1.1 oz) 01/23/2025 1:21 P M CDT Height 160 cm (5' 3 ) 01/23/2025 1:21 PM CDT Body Mass Index 32.96 01/23/2025 1:21 PM CDT Plan of Treatment Health Maintenance Due Date Last Done Comments Albumin Creatinine Ratio, Urine 1965 Breast Cancer Screening-Mammogram 1965 Depression Screening 1965 Hepatitis C Screening 1965 Dilated Eye Exam 1965 Foot Exam 1965 Lipid Panel 1965 Hepatitis B Screening 1983 Pneumococcal vaccine <65 (1 of 2 - PCV) 1984 Zoster Vaccine (1 of 2) 2015 Covid-19 Vaccine (3 - 2023-2 5 season) 2024 07/08/2021, 02/12/2021 Hemoglobin A1C [...] Discontinued 11/27/2024 Medical Devices Implanted Type Area Care Information Associate Device Identifier Shelf Expiration Date Model / Serial / Lot [employer] Simplex P Radiopaque Full Dose Cement Bone Sterile 6191-1-010 - [id number] Implanted:Qty: 2 on 06/21/2023 by Baljinder Sage DO at [facility] [employer] 09/13/2025 6191-1-010 / / [id number] [employer] Persona Cruciate Retaining Cemented Knee Right 7 Narrow Component [id number] - [id number] Implanted:Qty: 1 on 06/21/2023 by Baljinder Sage DO at [facility] [employer] [id number] 01/06/2033 [id number] / / [id number] [employer] [id number] Persona Natural Tibia Stem Knee Right 5d D Baseplate Tibial - [id number] Implanted:Qty: 1 on 06/21/2023 by Baljinder Sage DO at [facility] [employer] [id number] 03/29/2033 [id number] / / [id number] Explanted Type Area Care Information Associate Device Identifier Shelf Expiration Date Model / Serial / Lot [employer] Persona 10mm Knee Right 6-7 C-D Insert Articular Vivacit-E [id number] - [id number] Explanted:Qty: 1 on 06/21/2023 at [facility] [employer] [id number] 11/30/2027 [id number] / / [id number] Procedures Procedure Name Priority Date/Time Associated Diagnosis Comments SURGICAL PATHOLOGY Routine 11/27/2024 1: 25 PM ARTILLERY SPECIALIST Encounter for screening for malignant neoplasm of colon COLON BIOPSY 11/27/2024 12:32 PM ARTILLERY SPECIALIST Encounter for screening for malignant neoplasm of colon COLONOSCOPY 11/27/2024 12:29 PM ARTILLERY SPECIALIST POCT GLUCOSE DEVICE Routine 11/27/2024 1 1:50 AM ARTILLERY SPECIALIST EGFR STAT 10/03/2024 3:47 PM ARTILLERY SPECIALIST HEMOGLOBIN A1C Routine 04/04/2024 11:26 AM CDT Paresthesia of skin from Last 3 Months or Most Recently Relevant to Health Maintenance Results * Surgical pathology (11/27/2024 1:25 PM ARTILLERY SPECIALIST) Tissue (Polyp(s), colon/colorectal, esophageal, gastric) 11/27/2024 12:50 PM ARTILLERY SPECIALIST Narrative PATHOLOGY - 11/28/2024 3:53 PM ARTILLERY SPECIALIST EPIC results best viewed via link to PDF [facility] Department of Pathology [address] [place], [place] [id number] Note to Patients: This report may contain [...] Final Report Patient Name: DOLLY LUCAS Address: [address] [place] [address] Gender: F : 1965 (Age: 58) Service: Gastro Location: GI Lab [facility] #: [id number] Patient Type: [facility] Taken: 11/27/2024 Received: 11/27/2024 Accessioned: 11/27/2024 Reported: [...] determined by the Surgical Pathology Department at [facility] as part of an ongoing quality systems manager program and in compliance with federally mandated [...] characteristics determined by the Surgical Pathology Department [facility]. It has not been cleared or approved by the U. S. Food and Drug Administration. Note for decalcified specimens: This assay has not been validated on decalcified tissues. Results should be interpreted with caution given the possibility of false negativity on decalcified specimens us Jairo Larry MD LAB PATHOLOGY ORDERABLES Final R esult PATHOLOGY [address] [place] [address] * Colonoscopy (11/27/2024 12:29 PM ARTILLERY SPECIALIST) Anatomical Region Laterality Modality Other Narrative Procedure Note Jairo Larry MD - 11/27/2024 12:29 PM CST [facility] Patient Name: Dolly Lucas Procedure Date: 11/27/2024 12:29 PM Date of : 1965 Admit Type: Outpatient Age: 58 Gender: Female Note Status: Finalized Attending MD: Jairo Larry M.D. Procedure Date: 11/27/2024 Procedure: Colonoscopy Indications: Screening for colorectal malignant neoplasm Providers: Jairo Lrary M.D., Roxi Sullivan CRNA (Anesthesia Staff), Fay Squires RN, Jakob, Seafood Team Member Referring MD: Oliver Doan M.D. Medicines: Monitored [...] results. - [facility] Procedure Code(s): --- Professional --- 09433, Colonoscopy, flexible; with biopsy, singleor multiple Diagnosis Code(s): --- Professional --- K57.30, Diverticulosis of large intestine without perforation or abscess without bleeding D12.4, Benign neoplasm of descending colon Z12.11, Encounter for screening for malignantneoplasm of colon CPT copyright 2020 [employer]. All rights reserved. The codes documented in this report are preliminary and upon brand engineer reviewmay be revised to meet current compliance requirements. Dr. Jairo Larry MD Jairo Larry M.D. 11/27/2024 1:00:33 PM This report has been electronically signed by the physician. Number of Addenda: 0 Note Initiated On: 11/27/2024 12:29 PM Jairo Larry MD ENDOSCOPY PROCEDURES Edited Resu lt - Final * POCT glucose (11/27/2024 11:50 AM ARTILLERY SPECIALIST) Glucose, POC 94 70 - 199 mg/dL Blood 11/27/2024 11:5 0 AM ARTILLERY SPECIALIST 11/27/2024 11:50 AM ARTILLERY SPECIALIST Jairo Larry MD LAB POCT ORDERABLES - DEVICE Fin al Result [address]NE [address] [address] [place] [address] * eGFR (10/03/2024 3:47 PM ARTILLERY SPECIALIST) eGFR >90 >=60 mL/min/1. 73 m2 Comment: [...] last reviewed 2021. Blood 10/03/2024 3:47 PM ARTILLERY SPECIALIST 10/03/2024 3:50 PM ARTILLERY SPECIALIST Kirsten NI LAB BLOOD ORDERABLES Final Result Performing Organization Address City/[facility]/ZIP Co de Phone Number [place] [address] [facility] [place] [address] * Hemoglobin A1c (04/04/2024 11:26 AM CDT) Hgb A1C 5.6 4.0 - 5.6 % Estimated Average Glucose 114 mg/dL [facility] Comment: The ADA recommends reporting an estimated Average Glucose (eAG) with all Hemoglobin A1c results using the equation derived from a study of 507 normal and diabetic adults. Minority populations were underrepresented and children were not included. (Diabetes Care 31:9425-6782, 2008). The eAG is not equivalent to a fasting glucose. Blood 04/04/2024 11:2 6 AM CDT 04/04/2024 12:32 PM CDT Jose Logan MD LAB BLOOD ORDERABLES Final Resul t Performing Organization Address City/[facility]/ZIP Co de Phone Number [place] [id number] [facility] [place] [address] from Last 3 Months or Most Recently Relevant to Health Maintenance Insurance [facility] Member Subscriber Plan / Payer (Ef fective 2021-Present) Name:Dolly Lucas Relation to Subscriber:Self Name:Dolly Lucas Payer ID:[id number] (NAIC) Group ID:Not on file Type:MEDICAID RISK OTHER Address: [address] [place], [place] [id number] [place] [address] [facility] Advance Directives For more information, please contact: [phone] * Full Code (Latest Code Status on File) Date Activated Date Inactivated Comments 06/21/2023 11:05 AM 06/23/2023 7:09 PM Care Teams Lost Charge Card Clerk Relationship Specialty Start Date End Date Oliver Doan MD [address] [place] [address] PCP - General Internal Medicine 06/01/23 Jerilyn Tucker MD [address] [facility] [address] [place] [address] Consulting Physician Critical Care Med 05/26/23 Javon Hart MD [address] [place] [address] Consulting Physician Pulmonary Disease 06/09/23 Juliana Duenas PA [address] [address] Orthopedic Surgery 06/21/23
--- OUTSIDE RECORDS SUMMARY | 2025-02-06 13:09 | XMS_ITS | Encounter Summary ---
Author Organization [facility] Address [address] [place] [address] Phone Care Team Providers Care Infant Lead Teacher Name Role Phone Oliver Doan MD Primary Care Provider [phone] Jerilyn Tucker MD Unavailable [phone] Oliver Doan MD Primary Care Provider [phone] Javon Hart MD Unavailable [phone] Juliana Duenas Unavailable [phone] Encounter Details Date Type Department Care Team [...] on file Legal Sex Female 1:17 AM AUTHORIZATION REP Gender Identity Not on file Sexual Orientation [...] documented as of this encounter Care Teams Infant Lead Teacher Relationship Specialty Start Date End Date Oliver Doan MD [address] [place] [address] PCP - General Internal Medicine 05/18/20 05/25/23 Oliver Doan MD [address] [place] [address] PCP - General Internal Medicine 06/01/23 Jerilyn Tucker MD [address] [address] Consulting Physician Critical Care Med 05/26/23 Javon Hart MD [address] [address] Consulting Physician Pulmonary Disease 06/09/23 Juliana Duenas PA [address] [address] Orthopedic Surgery 06/21/23 documented as of this encounter
--- OUTSIDE RECORDS SUMMARY | 2025-02-06 13:09 | XMS_ITS | Referral Summary ---
Author Organization [facility] [address] Address [address] [place] [address] Care Team Providers Care Primer Press Operator Name Role Phone Jerilyn Tucker MD Unavailable [phone] Oliver Doan MD Primary Care Provider [phone] Javon Hart MD Unavailable [phone] Juliana Duenas Unavailable [phone] Encounters Date Type Department Care Team Description 01/23/2025 1:45 PM CDT Office Visit [facility] at [address], [address] Medical Office Building [address] [place] [address] Marti Ayala MD Vasomotor symptoms due to menopause (Primary Dx) 12/20/2024 Orders Only [facility] Primary Care at [facility] [address] [place] [phone] Kendal Morin NP 12/17/2024 Telephone [facility] [address] [place] [address] [place] [address] Marti Ayala MD 12/05/2024 Telephone [facility] Gastroenterology at [address] [place] [address] Jairo Larry MD 11/27/2024 12:30 PM TOMATO GRADER - 11/27/2024 1:00 PM TOMATO GRADER Surgery [facility] [address] [place] [address] Jairo Larry MD COLON BIOPSY 11/27/2024 12:32 PM TOMATO GRADER Anesthesia Event [facility] [id number] [place] [address] Herminio Gomez MD 11/27/2024 11:22 AM TOMATO GRADER - 11/27/2024 1:52 PM TOMATO GRADER Hospital Encounter [facility] [address] [place] [address] Jairo Larry MD Encounter for screening for malignant neoplasm of colon Discharge Disposition: Discharge to home or self care from Last 3 Months Allergies Active Allergy [...] 10/17/2024 Assessment & Plan (10/17/2024 3:26 PM TOMATO GRADER): - Contraception: hysterectomy - STI screening discussed. [...] 10/17/2024 Assessment & Plan (10/17/2024 3:39 PM TOMATO GRADER): We discussed symptoms of both perimenopause and [...] 06/21/2023 Assessment & Plan (09/21/2023 12:00 PM TOMATO GRADER): Discussed with the patient that her x-rays [...] (08/03/2023): Added automatically from request for surgery [id number] Added automatically from request for surgery [id number] Hypertension 01/01/2016 Pulmonary arterial hypertension 01/01/2016 Tobacco [...] often do you attend chur ch or quaker services? Never 06/22/2023 Do you belong to any clubs o r organizations such as roman catholic groups, unions, fraternal or athletic groups, or [...] place to sleep or slept in a assisted (including now)? No 06/22/2023 Personal Safety Answer Date Recorded Have you ever been in or are you currently in a harmful physical or emotional relationship or is someone making you feel afraid or unsafe? Denies 11/27/2024 Comments No Sex and Gender Information Value Date Recorded Sex Assigned at Not on file Legal Sex Female 1:17 AM TOMATO GRADER Gender Identity Not on file Sexual Orientation Not on file Occupation Industry Job Start Date Job End Date Disabled, used to work in [employer] Not on file Not on file Not on file Last Filed Vital Signs Vital Sign Reading Time Taken Comments Blood Pressure 124/72 01/23/2025 1:21 PM CDT Pulse 98 01/23/2025 1:21 PM CDT Temperature 37.2 C (99 F) 11/27/2024 11:58 AM TOMATO GRADER Respiratory Rate 18 01/23/2025 1:21 PM CDT Oxygen Saturation 97% 01/23/2025 1:21 PM CDT Inhaled Oxygen Concentration - - Weight 84.4 kg (186 lb 1.1 oz) 01/23/2025 1:21 P M CDT Height 160 cm (5' 3 ) 01/23/2025 1:21 PM CDT Body Mass Index 32.96 01/23/2025 1:21 PM CDT Plan of Treatment Not on file Medical Devices Implanted Type Area Cistern Room Working Supervisor Device Identifier Shelf Expiration Date Model / Serial / Lot [employer] Simplex P Radiopaque Full Dose Cement Bone Sterile 6191-1-010 - [id number] Implanted:Qty: 2 on 06/21/2023 by Baljinder Sage DO at [facility] [employer] 09/13/2025 6191-1-010 / / [id number] [employer] Persona Cruciate Retaining Cemented Knee Right 7 Narrow Component [id number] - [id number] Implanted:Qty: 1 on 06/21/2023 by Baljinder Sage DO at [facility] [employer] [id number] 01/06/2033 [id number] / / [id number] [employer] [id number] Persona Natural Tibia Stem Knee Right 5d D Baseplate Tibial - [id number] Implanted:Qty: 1 on 06/21/2023 by Baljinder Sage DO at [facility] [employer] [id number] 03/29/2033 [id number] / / [id number] Explanted Type Area Cistern Room Working Supervisor Device Identifier Shelf Expiration Date Model / Serial / Lot [employer] Persona 10mm Knee Right 6-7 C-D Insert Articular Vivacit-E [id number] - [id number] Explanted:Qty: 1 on 06/21/2023 at [facility] [employer] [id number] 11/30/2027 [id number] / / [id number] Procedures Procedure Name Priority Date/Time Associated Diagnosis Comments SURGICAL PATHOLOGY Routine 11/27/2024 1: 25 PM TOMATO GRADER Encounter for screening for malignant neoplasm of colon COLON BIOPSY 11/27/2024 12:32 PM TOMATO GRADER Encounter for screening for malignant neoplasm of colon COLONOSCOPY 11/27/2024 12:29 PM TOMATO GRADER POCT GLUCOSE DEVICE Routine 11/27/2024 1 1:50 AM TOMATO GRADER EGFR STAT 10/03/2024 3:47 PM TOMATO GRADER HEMOGLOBIN A1C Routine 04/04/2024 11:26 AM CDT Paresthesia of skin from Last 3 Months or Most Recently Relevant to Health Maintenance Results * Surgical pathology (11/27/2024 1:25 PM TOMATO GRADER) Tissue (Polyp(s), colon/colorectal, esophageal, gastric) 11/27/2024 12:50 PM TOMATO GRADER Narrative PATHOLOGY CH - 11/28/2024 3:53 PM TOMATO GRADER EPIC results best viewed via link to PDF [facility] Department of Pathology [address] [place] [address] Note to Patients: This report may [...] Final Report Patient Name: DOLLY LUCAS Address: [address] [place] [address] Gender: F : 1965 (Age: 58) Service: Gastro Location: GI Lab Hospital #: [id number] Patient Type: [facility] Taken: 11/27/2024 Received: 11/27/2024 Accessioned: 11/27/2024 Reported: [...] determined by the Surgical Pathology Department at [facility] as part of an ongoing research associate quality control qc program and in compliance with federally mandated [...] characteristics determined by the Surgical Pathology Department [facility]. It has not been cleared or approved by the U. S. Food and Drug Administration. Note for decalcified specimens: This assay has not been validated on decalcified tissues. Results should be interpreted with caution given the possibility of false negativity on decalcified specimens us Jairo Larry MD LAB PATHOLOGY ORDERABLES Final R esult PATHOLOGY [address] [place] [address] * Colonoscopy (11/27/2024 12:29 PM TOMATO GRADER) Anatomical Region Laterality Modality Other Narrative Procedure Note Jairo Larry MD - 11/27/2024 12:29 PM CST - [facility] Endoscopy Lab Patient Name: Dolly Lucas Procedure Date: 11/27/2024 12:29 PM Date of : 1965 Admit Type: Outpatient Age: 58 Gender: Female Note Status: Finalized Attending MD: Jairo Larry M.D. Procedure Date: 11/27/2024 Procedure: Colonoscopy Indications: Screening for colorectal malignant neoplasm Providers: Jairo Larry M.D., Roxi [facility] CRNA (Anesthesia Staff), Fay Squires RN, Jakob, Wall Attendant Referring MD: Oliver Doan M.D. Medicines: Monitored [...] results. - [facility] Procedure Code(s): --- Professional --- 34983, Colonoscopy, flexible; with biopsy, singleor multiple Diagnosis Code(s): --- Professional --- K57.30, Diverticulosis of large intestine without perforation or abscess without bleeding D12.4, Benign neoplasm of descending colon Z12.11, Encounter for screening for malignantneoplasm of colon CPT copyright 2020 [employer]. All rights reserved. The codes documented in this report are preliminary and upon head refrigeration engineer reviewmay be revised to meet current compliance requirements. Dr. Jairo Larry MD Jairo Larry M.D. 11/27/2024 1:00:33 PM This report has been electronically signed by the physician. Number of Addenda: 0 Note Initiated On: 11/27/2024 12:29 PM Jairo Larry MD ENDOSCOPY PROCEDURES Edited Resu lt - Final * POCT glucose (11/27/2024 11:50 AM TOMATO GRADER) Glucose, POC 94 70 - 199 mg/dL Blood 11/27/2024 11:5 0 AM TOMATO GRADER 11/27/2024 11:50 AM TOMATO GRADER Jairo Larry MD LAB POCT ORDERABLES - DEVICE Fin al Result Performing Organization Address City/[facility]/ZIP Co de Phone Number ANNE [address] [facility] [place] [address] * eGFR (10/03/2024 3:47 PM TOMATO GRADER) eGFR >90 >=60 mL/min/1. 73 m2 Comment: [...] last reviewed 2021. Blood 10/03/2024 3:47 PM TOMATO GRADER 10/03/2024 3:50 PM TOMATO GRADER Kirsten NI LAB BLOOD ORDERABLES Final Result ANNE [address] [facility] Department [place] [address] * Hemoglobin A1c (04/04/2024 11:26 AM CDT) Hgb A1C 5.6 4.0 - 5.6 % Estimated Average Glucose 114 mg/dL ANNE MUNOZ Comment: The ADA recommends reporting an estimated Average Glucose (eAG) with all Hemoglobin A1c results using the equation derived from a study of 507 normal and diabetic adults. Minority populations were underrepresented and children were not included. (Diabetes Care 31:9599-2570, 2008). The eAG is not equivalent to a fasting glucose. Blood 04/04/2024 11:2 6 AM CDT 04/04/2024 12:32 PM CDT us Jose Logan MD LAB BLOOD ORDERABLES Final Resul t ANNE [address] [facility] Department [place] [address] from Last 3 Months or Most Recently Relevant to Health Maintenance Insurance [facility] [place] [address] Advance Directives For more information, please contact: [phone] * Full Code (Latest Code Status on File) Date Activated Date Inactivated Comments 06/21/2023 11:05 AM 06/23/2023 7:09 PM Care Teams Primer Press Operator Relationship Specialty Start Date End Date Oliver Doan MD [address] [place] [address] PCP - General Internal Medicine 06/01/23 Jerilyn Tucker MD [address] [address] Consulting Physician Critical Care Med 05/26/23 Javon Hart MD [address] [place] [address] Consulting Physician Pulmonary Disease 06/09/23 Juliana Duenas PA [address] [address] Orthopedic Surgery 06/21/23
--- OUTSIDE RECORDS SUMMARY | 2025-02-06 13:09 | XMS_ITS | Clinical Summary ---
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
--- OUTSIDE RECORDS SUMMARY | 2025-02-06 13:10 | XMS_ITS | CONTINUITY OF CARE DOCUMENT ---
Author Name tova bernardo Address Unknown Organization [facility] Address [address] [place] [address] Phone [phone] Care Team Providers Care Md Psychiatry Name Role Phone Gerber Brizuela MD Unavailable [phone] MODESTA CEBALLOS MD H Unavailable [phone] MODESTA CEBALLOS MD H Unavailable [phone] PROBLEMS Condition Status Date Provider Notes Coagulation factor defect, H /o protein C deficiency completed - Alejandro Godfrey MD Pulmonary hypertensive arterial disease active Alejandro Godfrey MD HTN active Alejandro Godfrey MD Tobacco abuse active Alejandro Godfrey MD PE active Gerber Brizuela MD GERD active Gerber Brizuela MD ENCOUNTERS Date Type Provider Location Encounter Diag nosis - In-person encounter Office Visit Gerber Brizuela MD [place] [facility] PEGERD - In-person encounter Office Visit Alejandro Godfrey MD [facility] Coagulation factor defect, H/o protein C deficiency - In-person encounter Office Visit Alejandro Godfrey MD [place] [facility] Pulmonary hypertensive arterial diseaseHTNTobacco abuse VITAL [...] Geovany ebonie blood pressure, diastolic 80 mm[Hg] Co giovanna Bob blood pressure, systolic 119 mm[Hg] [...] counseling yes Chelle Rodrigues drug use no Chelle coleman smoking, date started 1992 Monty Rodrigues [...] Payer name Policy type / Coverage type [facility] [place] [employer] (2) Medicaid [id number] ADVANCE DIRECTIVES Name Date DISCUSSED - NO DECISION MADE TREATMENT PLAN Date Name Performer [id number],C,T he Patient was reencouraged to stop smoking. Yaz Huggins [id number],C,BP satisfacto ry. Yaz Joseluis [id number],C,P t continues to have chest pressure, relieved by burping. Yaz Huggins [id number],C,H ad recent ER visit. WAs told all tests were negative. Will call pt and discuss the results of ER visit once we have retrieved them. Yaz Huggins [facility] follow up :The Patient was reencouraged to stop smoking. Yazdaisy Landksleonel [facility] follow up :B P satisfactory. Yazdaisy Landksleonel [facility] follow up :Pt continues to have chest pressure, relieved by burping. Yaz Jacobsksleonel [facility] follow up :Had recent ER visit. WAs [...] Godfrey MD Hem/Onc:I reviewed r ecords from [facility] as well at [facility]. It appears that the patient has a [...] ROTEIN S ACTIVITY W/RFX PROTEIN S ANTIGEN (8638) A NTITHROMBIN III ACTIVITY AND ANTIGEN (7617) L UPUS ANTICOAGULANT EVALUATION WITH REFLEX (8782) A nticardiolipin Ab, IgA, Qn (658283) A nticardiolipin Ab, IgG, Qn (287344) A nticardiolipin Ab, IgM, Qn (913743) B 2-GLYCOPROTEIN I (IGA) AB (63443) B 2-GLYCOPROTEIN I (IGG) AB (61421) B 2-GLYCOPROTEIN I (IGM) AB (51829) F ACTOR V (LEIDEN) MUTATION ANALYSIS (67240) P ROTHROMBIN (FACTOR II) 41513Q>A MUTATION ANALYSIS (18966) Alejandro Godfrey MD Date Name PROTHROMBIN (FACTOR II) 59767J>A MUTATION ANALYSIS FACTOR V (LEIDEN) MU TATION [...] EKG Gerber Brizuela MD complet ed SNOMED-CT: 342984957 090431 Current Medications Documented Alejandro Godfrey MD completed SNOMED-CT: 763858377 Smoking Cessation Counseling Alejandro Godfrey MD completed SNOMED-CT: 908661613 709056 Current Medications Documented Alejandro Godfrey MD completed
--- OUTSIDE RECORDS SUMMARY | 2025-02-06 13:10 | XMS_ITS | Encounter Summary ---
Author Organization [facility] Address [facility] [place] [address] Care Team Providers Care Customs Import Specialist Name Role Phone London Shahid MD Primary Care Provider [phone] Encounter Details Date Type Department Care Team (Late st Contact Info) Description 03/27/2019 Telephone [facility] [place] [address] [phone] Scanned, Documents Social History Tobacco Use Types [...] on filedocumented in this encounter Care Teams Customs Import Specialist Relationship Specialty Start Date End Date London Shahid MD [address] [place] [address] PCP - General INTERNAL MEDICINE 09/28/18 documented as of this encounter
--- OUTSIDE RECORDS SUMMARY | 2025-02-06 13:10 | XMS_ITS | Clinical Summary ---
Author Organization [facility] Address [address] [place] [address] Care Team Providers Care Hair Mixer Name Role Phone London Shahid MD Primary Care Provider [phone] Allergies Active Allergy Reactions Criticality Noted Date [...] (10/13/2018): Added automatically from request for surgery [id number] Family History Medical History Relation Comments Breast [...] patient's age to complete this topic Insurance [place] Care Teams Hair Mixer Relationship Specialty Start Date End Date London Shahid MD [address] [place] [address] PCP - General INTERNAL MEDICINE 09/28/18
--- OUTSIDE RECORDS SUMMARY | 2025-02-06 13:23 | XMS_ITS | CONTINUITY OF CARE DOCUMENT ---
Author Name adeletova cooney Address Unknown Organization [facility] Address [address] [facility] [address] [place] [address] Phone [phone] Care Team Providers Care Supervisor Testing Name Role Phone Gerber Brizuela MD Unavailable MODESTA CEBALLOS MD H Unavailable MODESTA CEBALLOS MD H Unavailable PROBLEMS Condition Status Date Provider Notes Coagulation factor defect, H /o protein C deficiency completed - Alejandro Godfrey MD HTN active Alejandro Godfrey MD GERD active Gerber Brizuela MD PE active Gerber Brizuela MD Tobacco abuse active Alejandro Godfrey MD Pulmonary hypertensive arterial disease active Alejandro Godfrey MD ENCOUNTERS Date Type Provider Location Encounter Diag nosis - In-person encounter Office Visit Gerber Brizuela MD [place] [facility] PEGERD - In-person encounter Office Visit Alejandro Godfrey MD [facility] Office Coagulation factor defect, H/o protein C deficiency - In-person encounter Office Visit Alejandro Godfrey MD [place] [facility] Pulmonary hypertensive arterial diseaseHTNTobacco abuse VITAL [...] Geovany ebonie blood pressure, diastolic 80 mm[Hg] Ar giovanna Bob blood pressure, systolic 119 mm[Hg] [...] Payer name Policy type / Coverage type [facility] [place] [employer] (2) Medicaid [id number] ADVANCE DIRECTIVES Name Date DISCUSSED - NO DECISION MADE TREATMENT PLAN Date Name Performer [id number],C,T he Patient was reencouraged to stop smoking. Yaz Huggins [id number],C,BP satisfacto ry. Yaz Joseluis [id number],C,P t continues to have chest pressure, relieved by burping. Yaz Huggins [id number],C,H ad recent ER visit. WAs told all tests were negative. Will call pt and discuss the results of ER visit once we have retrieved them. Yaz Huggins [facility] follow up :The Patient was reencouraged to stop smoking. Yazdaisy Landctleonel [facility] follow up :B P satisfactory. Yazdaisy Landctleonel [facility] follow up :Pt continues to have chest pressure, relieved by burping. Yaz Jacobsctleonel [facility] follow up :Had recent ER visit. WAs [...] Godfrey MD Hem/Onc:I reviewed r ecords from [facility] as well at [facility]. It appears that the patient has a [...] ROTEIN S ACTIVITY W/RFX PROTEIN S ANTIGEN (7138) A NTITHROMBIN III ACTIVITY AND ANTIGEN (7217) L UPUS ANTICOAGULANT EVALUATION WITH REFLEX (9595) A nticardiolipin Ab, IgA, Qn (702188) A nticardiolipin Ab, IgG, Qn (102584) A nticardiolipin Ab, IgM, Qn (896048) B 2-GLYCOPROTEIN I (IGA) AB (53286) B 2-GLYCOPROTEIN I (IGG) AB (07266) B 2-GLYCOPROTEIN I (IGM) AB (39294) F ACTOR V (LEIDEN) MUTATION ANALYSIS (20361) P ROTHROMBIN (FACTOR II) 32548G>A MUTATION ANALYSIS (09253) Alejandro Godfrey MD Date Name PROTHROMBIN (FACTOR II) 82237C>A MUTATION ANALYSIS FACTOR V (LEIDEN) MU TATION [...] EKG Gerber Brizuela MD complet ed SNOMED-CT: 994915778 541471 Current Medications Documented Alejandro Godfrey MD completed SNOMED-CT: 752827149 Smoking Cessation Counseling Alejandro Godfrey MD completed SNOMED-CT: 419061520 251224 Current Medications Documented Alejandro Godfrey MD completed
[2025-02-06 13:27] LABS: Prothrombin Time 13.9 Seconds (11.1-14.7)
--- NOTE | 2025-02-06 13:33 | ED_ITS ---
HPI - Extremity Problem General Chief complaint: Extremity Problem,Nontraumatic Stated complaint: Rt leg numbness, pain right groin--Hx of DVT's Time Seen by Provider: 02/06/25 11:56 Source: patient Mode of arrival: ambulatory Limitations: no limitations History of Present Illness HPI Narrative: 59-year-old with a history of DVT on Eliquis, hypertension, chronic low back pain presents to the ER with complaints of right groin pain since last night. She is concerned that could be another DVT. She denies any chest pain or shortness of breath. He denies head trauma or lifting any heavy objects MD Complaint: joint paint Onset (ago): day(s) (1) Pain Consistency: constant Location: right Quality: aching Radiation: none Relieving factors: nothing Exacerbating factors: nothing Associated symptoms: denies other symptoms Related Data Home Medications ?Medication ?Instructions ?Recorded ?Confirmed ?Last Taken ?Type hydrochlorothiazide 25 mg tablet 25 mg PO DAILY 05/18/20 11/12/24 05/17/20 09:00 History losartan 25 mg tablet 25 mg PO DAILY 05/18/20 11/12/24 05/17/20 09:00 History cyclobenzaprine 10 mg tablet 10 mg PO DAILY PRN Pain 04/24/21 11/12/24 Unknown History fluticasone propionate 50 2 spray intranasal DAILY 04/24/21 11/12/24 Unknown History mcg/actuation nasal spray,suspension metformin 500 mg tablet,extended 500 mg PO BID 04/24/21 11/12/24 Unknown History release 24 hr ondansetron 4 mg disintegrating 4 mg PO Q4-6H PRN Nausea 04/24/21 11/12/24 Unknown History tablet apixaban 5 mg tablet (Eliquis) 5 mg PO BID 04/27/21 11/12/24 Unknown History semaglutide 1 mg/dose (2 mg/1.5 1 mg subcut WEEKLY 09/13/23 11/12/24 Unknown History mL) subcutaneous pen injector (Ozempic) Allergies Allergy/AdvReac Type Severity Reaction Status Date / Time iohexol (From contrast - CT, Allergy Anaphylaxis Verified 08/18/23 06:28 X-RAY) levofloxacin (From Levaquin) Allergy Anaphylaxis Verified 08/18/23 06:28 Tqvvdpb-JJY-ByZ Reductase Allergy Anaphylaxis Verified 08/18/23 06:28 Inhibitor (Zsmirdt-Ygc-Kbd Reductase Inhibitor) tramadol Allergy Anaphylaxis Verified 08/18/23 06:28 Review of Systems 2 Review of Systems: All systems reviewed & are unremarkable except as noted in HPI and below Constitutional: Constitutional: Reports no additional constitutional complaints Eyes: Eyes: Reports no additional eye complaints ENT: Reports system reviewed and no additional complaints, except as documented Cardiovascular: Cardiovascular: Reports no additional cardiovascular complaints Respiratory: Respiratory: Reports no additional respiratory complaints Gastrointestinal: Gastrointestinal: Reports no additional gastrointestinal complaints Musculoskeletal: Musculoskeletal: Reports as per HPI Integumentary/Breasts: Skin/Breast: Reports system reviewed and no additional complaints, except as docu Neurologic: Reports system reviewed and no additional complaints, except as documented Psychiatric: Psychiatric: Reports no additional psychiatric complaints [facility] Past Medical History Medical History FH: total knee replacement Tobacco dependence Nephrolithiasis Chronic pain syndrome Low back and knees. Thyroid nodule Osteoarthritis Hyperlipidemia Type 2 diabetes mellitus (Unknown) Asthma Hypertension History of pulmonary embolism Recurrent PEs in 1988, 2007, and 2019. On long-term apixaban. Surgical History Surgical History History of laparoscopic cholecystectomy 04/26/21 History of 3 sections History of hysterectomy (2006) Family History Family History Father Acute pulmonary edema Hypertension Mother Breast cancer Social History Social History Social History: The patient lives alone in [place]. She has had 3 children. On disability. Smokes 1 pack of cigarettes per day and has for years. No alcohol or illicit substance abuse. She designates her sister, Nika Crisostomo or her Jillian Grady as her surrogate decision makers and she wishes to be a full code. Smoking packs per day: 1 Smoking cigarettes per day: 20.0 Years smoked: 20 Smoking pack-years: 20.00 Smoking status: Current every day smoker (down to 1-2 cigs, sometimes not every day) Tobacco type: cigarettes Exam 2 Narrative: GENERAL: Well-appearing, well-nourished, and in no acute distress. HEAD: Normocephalic, atraumatic. EYES: PERRLA and EOMI. ENT: Nares clear, no rhinorrhea or epistaxis. Mucous membranes moist. NECK: Supple. CHEST: Clear to auscultation. No respiratory distress. HEART: Regular rate and rhythm. No murmur heard. Normal peripheral pulses. EXTREMITIES: Normal range of motion. No edema. Painful ROM of the right hip SKIN: Warm, dry, no rash. NEURO: No focal deficits. Alert and oriented x3. PSYCH: Normal mood and affect. Course Course Emergency Course: Notified patient about her lab work , ultrasound findings. Advised her to continue a hydrocodone tablet pain most likely his radicular pain from a lower back. Also recommended her to continue home medication and follow up with her primary doctor. Vital Signs Vital signs: Vital Signs Temperature 37.0 C 02/06/25 11:40 Pulse Rate 96 02/06/25 11:40 Respiratory Rate 18 02/06/25 11:40 Blood Pressure 174/88 H 02/06/25 11:40 Pulse Oximetry 98 02/06/25 11:40 Oxygen Delivery Room Air 02/06/25 11:40 Temperature 37.0 C 02/06/25 11:40 Pulse Rate 96 02/06/25 11:40 Respiratory Rate 18 02/06/25 11:40 Blood Pressure 174/88 H 02/06/25 11:40 Pulse Oximetry 98 02/06/25 11:40 Oxygen Delivery Room Air 02/06/25 11:40 MDM - Extremity (Nontraumatic) Lab Data 02/06/25 12:39 02/06/25 12:39 Labs: Lab Results 02/06/25 Range/Units 12:39 WBC 9.2 (4.5-10.0) K/mm3 RBC 4.49 (4.2-5.4) M/mm3 Hgb 12.8 (12.0-15.0) g/dL Hct 37.7 (37.0-47.0) % MCV 84.0 (80-100) fl MCH 28.5 (26-34) pg MCHC 34.0 (32-36) g/dl RDW 13.8 (11.5-14.5) % Plt Count 233 (150-375) k/mm3 MPV 11.4 H (7.4-10.4) fl Immature Gran % (Auto) 0.2 (0-0.5) % Neut % (Auto) 72.2 (45.5-73.1) % Lymph % (Auto) 22.3 (18.3-44.2) % [place] % (Auto) 4.3 (2.6-8.5) % Eos % (Auto) 0.8 (0-4.4) % Baso % (Auto) 0.2 (0.2-1.2) % Lymph # (Auto) 2.06 (0.9-3.2) K/mm3 [place] # (Auto) 0.4 (0.1-0.6) K/mm3 Eos # (Auto) 0.1 (0-0.3) K/mm3 Baso # (Auto) 0.0 (0.0-0.1) K/mm3 Abs Immat Gran (auto) 0.02 (0.00-0.031) K/mm3 Absolute Neuts (auto) 6.7 (1.3-6.7) K/mm3 Absolute Nucleated RBC 0.000 (0.0-0.012) K/mm3 Nucleated RBC % 0.0 (0.0-0.2) % PT 13.9 (11.1-14.7) Seconds INR 1.0 Sodium 140 (137-145) mmol/L Potassium 4.0 (3.4-5.0) mmol/L Chloride 108 H (98-107) mmol/L Carbon Dioxide 28 (22-30) mmol/L Anion Gap 4 (4-12) mmol/L BUN 12 D (7-17) mg/dL Creatinine 0.77 (0.7-1.0) mg/dL Estim Creat Clear Calc 70 ml/min Estimated GFR > 60 (59 - ) Glucose 105 (65-110) mg/dL Calcium 9.2 (8.4-10.2) mg/dL Imaging Data Radiologist's impression: ITS Impressions Venous Doppler Study 02/06/25 12:45 IMPRESSION: 1. No deep venous thrombosis. Discharge Plan Discharge Clinical Impression: Strain of right groin Patient Disposition: Home, Self-Care Condition: Stable Instructions: Groin Strain (ED) Additional Instructions: Continue home medications, follow-up with your primary Patient Language: Australian Prescriptions: No Action (DME) nebulizers Misc See Rx Instructions .Route Qty: 1 0RF Rx Instructions: As directed albuterol sulfate 90 mcg/actuation HFA aerosol inhaler 1 - 2 puff inhalation Q4-6H PRN (Reason: shortness of breath or wheezing) Qty: 8.5 2RF Ozempic 1 mg/dose (2 mg/1.5 mL) pen injector 1 mg subcut WEEKLY prednisone 10 mg tablet 10 mg PO DAILY Qty: 30 0RF Rx Instructions: Take 4 a day for 3 days in the morning with food, decreased by 1 tablet every 3 days until completed. losartan 25 mg tablet 25 mg PO DAILY hydrochlorothiazide 25 mg tablet 25 mg PO DAILY cyclobenzaprine 10 mg Tablet 10 mg PO DAILY PRN (Reason: Pain) ondansetron 4 mg Tablet,Disintegrating 4 mg PO Q4-6H PRN (Reason: Nausea) fluticasone propionate 50 mcg/actuation spray,suspension 2 spray INTRANASAL DAILY metformin 500 mg tablet extended release 24 hr 500 mg PO BID Eliquis 5 mg Tablet 5 mg PO BID hydrocodone-acetaminophen 5-325 mg Tablet 1 tablet PO Q6H PRN (Reason: breakthrough pain) Qty: 10 0RF Spiriva Respimat 1.25 mcg/actuation mist 2 puff inhalation Q24H 30 Days Qty: 4 5RF budesonide-formoterol [Symbicort] 160-4.5 mcg/actuation HFA aerosol inhaler 2 puff inhalation Q12H Qty: 10.2 5RF Rx Instructions: Rinse and spit Follow-up/Referrals: Franki,Oliver Miller MD [Primary Care Provider] - Time of Disposition: 13:37
== END 2025-02-06 13:55 | disposition home or self-care (01) ==
PROVIDERS: Emergency Provider Family Medicine; PCP Internal Medicine
DX: S39.011A Strain of muscle, fascia and tendon of abdomen, initial encounter (principal); I10 Essential (primary) hypertension; G89.29 Other chronic pain; M54.50 Low back pain, unspecified; M25.562 Pain in left knee; M25.561 Pain in right knee; E78.5 Hyperlipidemia, unspecified; E11.9 Type 2 diabetes mellitus without complications; J45.909 Unspecified asthma, uncomplicated; M19.90 Unspecified osteoarthritis, unspecified site; F17.210 Nicotine dependence, cigarettes, uncomplicated; Z87.442 Personal history of urinary calculi; Z86.711 Personal history of pulmonary embolism; Z86.718 Personal history of other venous thrombosis and embolism; Z90.49 Acquired absence of other specified parts of digestive tract; Z90.710 Acquired absence of both cervix and uterus; Z79.01 Long term (current) use of anticoagulants; Z79.85 Long-term (current) use of injectable non-insulin antidiabetic drugs; Z79.84 Long term (current) use of oral hypoglycemic drugs; Z79.899 Other long term (current) drug therapy; X58.XXXA Exposure to other specified factors, initial encounter
CPT/HCPCS: 36415; 80048; 85025; 85610; 93971; 99284

== ENCOUNTER 2025-03-28 13:43 | Emergency (ER) | payer OTHER, SELFPAY ==
[2025-03-28] VITALS (14 sets, daily range): BP systolic 146–164; BP diastolic 86–91; PULSE 77–106; RESP 13–22; TEMP 37.1; O2SAT 96–100
--- NOTE | ~2025-03-28 | XR_ITS ---
XR chest 2V 03/28/2025 14:35 Indication: Shortness of breath. History of asthma. Procedure: 2 view chest Comparison: Comparison to multiple prior studies sequentially, with oldest reviewed study dated 03/03. Findings: Heart size normal. No focal air space disease, pulmonary edema, pleural effusion or suspect ed pneumothorax. Impression: 1: No acute cardiopulmonary disease. Reviewed, dictated and finalized at location A. Impression: 1: No acute cardiopulmonary disease.
--- OUTSIDE RECORDS SUMMARY | 2025-03-28 13:49 | XMS_ITS | Clinical Summary ---
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
--- OUTSIDE RECORDS SUMMARY | 2025-03-28 13:49 | XMS_ITS | Encounter Summary ---
Author Organization [facility] Address [address] [place] [address] Phone Care Team Providers Care Trolley Worker Name Role Phone Oliver Doan MD Primary Care Provider [phone] Jerilyn Tucker MD Unavailable [phone] Oliver Doan MD Primary Care Provider [phone] Javon Hart MD Unavailable [phone] Juliana Duenas Unavailable [phone] Encounter Details Date Type Department Care Team [...] on file Legal Sex Female 1:17 AM RADIOLOGY SUPERVISOR Gender Identity Not on file Sexual Orientation [...] documented as of this encounter Care Teams Trolley Worker Relationship Specialty Start Date End Date Oliver Doan MD [address] [place] [address] PCP - General Internal Medicine 05/18/20 05/25/23 Oliver Doan MD [address] [place] [address] PCP - General Internal Medicine 06/01/23 Jerilyn Tucker MD [address] [address] Consulting Physician Critical Care Med 05/26/23 Javon Hart MD [address] [address] Consulting Physician Pulmonary Disease 06/09/23 Juliana Duenas PA [address] [address] Orthopedic Surgery 06/21/23 documented as of this encounter
--- OUTSIDE RECORDS SUMMARY | 2025-03-28 13:49 | XMS_ITS | Clinical Summary ---
Author Organization [facility] [address] Address [address] [place] [address] Care Team Providers Care Healthcare Consulting Manager Name Role Phone Jerilyn Tucker MD Unavailable [phone] Oliver Doan MD Primary Care Provider [phone] Javon Hart MD Unavailable [phone] Juliana Duenas Unavailable Allergies Active Allergy Reactions Criticality Noted Date [...] 10/17/2024 Assessment & Plan (10/17/2024 3:26 PM LITIGATION ASSISTANT): - Contraception: hysterectomy - STI screening discussed. [...] 10/17/2024 Assessment & Plan (10/17/2024 3:39 PM LITIGATION ASSISTANT): We discussed symptoms of both perimenopause and [...] 06/21/2023 Assessment & Plan (09/21/2023 12:00 PM LITIGATION ASSISTANT): Discussed with the patient that her x-rays [...] (08/03/2023): Added automatically from request for surgery [id number] Added automatically from request for surgery [id number] Hypertension 01/01/2016 Pulmonary arterial hypertension 01/01/2016 Tobacco dependence syndrome 01/01/2016 Knee pain 04/23/2015 Encounters Date Type Department Care Team Description 01/23/2025 1:45 PM CDT Office Visit [facility] [id number] [place] [address], [address] Medical Office Building [address] [place] [address] Marti Ayala MD Vasomotor symptoms due to menopause (Primary Dx) from Last 3 Months Immunizations Immunization Administration Dates Next Due Pfizer SARS-CoV-2 Monovalent Vaccination (12+ Yrs) PURPLE 02/12/2021 Surgical History Surgery Date Site/Laterality Comments [facility] TOTAL ABDOMINAL HYSTERECT W/WO RMVL TUBE OVARY Hysterectomy - (Added by TW Conv) [facility] OOPHORECTOMY PARTIAL/TOTA L UNI/BI Oophorectomy Unilateral Left Side - (Added by TW Conv) [facility] DELIVERY ONLY x2 CHOLECYSTECTOMY lap MULTIPLE TOOTH [...] often do you attend chur ch or hoahaoism services? Never 06/22/2023 Do you belong to any clubs o r organizations such as jew groups, unions, fraternal or athletic groups, or [...] place to sleep or slept in a longterm (including now)? No 06/22/2023 Personal Safety Answer Date Recorded Have you ever been in or are you currently in a harmful physical or emotional relationship or is someone making you feel afraid or unsafe? Denies 11/27/2024 Comments No Sex and Gender Information Value Date Recorded Sex Assigned at Not on file Legal Sex Female 1:17 AM LITIGATION ASSISTANT Gender Identity Not on file Sexual Orientation Not on file Occupation Industry Job Start Date Job End Date Disabled, used to work in [employer] Not on file Not on file Not [...] 37.2 C (99 F) 11/27/2024 11:58 AM LITIGATION ASSISTANT Respiratory Rate 18 01/23/2025 1:21 PM CDT [...] Discontinued 11/27/2024 Medical Devices Implanted Type Area Drugless Physician Device Identifier Shelf Expiration Date Model / Serial / Lot [employer] Simplex P Radiopaque Full Dose Cement Bone Sterile 6191-1-010 - [id number] Implanted:Qty: 2 on 06/21/2023 by Baljinder Sage DO at [facility] [employer] 09/13/2025 6191-1-010 / / [id number] [employer] Persona Cruciate Retaining Cemented Knee Right 7 Narrow Component [id number] - [id number] Implanted:Qty: 1 on 06/21/2023 by Baljinder Sage DO at [facility] [employer] [id number] 01/06/2033 [id number] / / [id number] [employer] [id number] Persona Natural Tibia Stem Knee Right 5d D Baseplate Tibial - [id number] Implanted:Qty: 1 on 06/21/2023 by Baljinder Sage DO at [facility] [employer] [id number] 03/29/2033 [id number] / / [id number] Explanted Type Area Drugless Physician Device Identifier Shelf Expiration Date Model / Serial / Lot [employer] Persona 10mm Knee Right 6-7 C-D Insert Articular Vivacit-E [id number] - [id number] Explanted:Qty: 1 on 06/21/2023 at [facility] [employer] [id number] 11/30/2027 [id number] / / [id number] Procedures Procedure Name Priority Date/Time Associated Diagnosis Comments COLONOSCOPY 11/27/2024 12:29 PM LITIGATION ASSISTANT EGFR STAT 10/03/2024 3:47 PM LITIGATION ASSISTANT HEMOGLOBIN A1C Routine 04/04/2024 11:26 AM CDT Paresthesia of skin from Last 3 Months or Most Recently Relevant to Health Maintenance Results * Colonoscopy (11/27/2024 12:29 PM LITIGATION ASSISTANT) Anatomical Region Laterality Modality Other Narrative Procedure Note Jairo Larry MD - 11/27/2024 12:29 PM CST [facility] End[facility] Patient Name: Dolly Lucas Procedure Date: 11/27/2024 12:29 PM Date of : 1965 Admit Type: Outpatient Age: 58 Gender: Female Note Status: Finalized Attending MD: Jairo Larry M.D. Procedure Date: 11/27/2024 Procedure: Colonoscopy Indications: Screening for colorectal malignant neoplasm Providers: Jairo Larry M.D., Roxi Sullivan CRNA (Anesthesia Staff), Fay Squires RN, Jakob, Steam Fitter Supervisor Referring MD: Oliver Doan M.D. Medicines: Monitored [...] years forsurveillance. Procedure Code(s): --- Professional --- 65586, Colonoscopy, flexible; with biopsy, singleor multiple Diagnosis Code(s): --- Professional --- K57.30, Diverticulosis of large intestine without perforation or abscess without bleeding D12.4, Benign neoplasm of descending colon Z12.11, Encounter for screening for malignantneoplasm of colon CPT copyright 2020 [employer]. All rights reserved. The codes documented in this report are preliminary and upon medical biller coder reviewmay be revised to meet current compliance requirements. Dr. Jairo Larry MD Jairo Larry M.D. 11/27/2024 1:00:33 PM This report has been electronically signed by the physician. Number of Addenda: 0 Note Initiated On: 11/27/2024 12:29 PM Jairo Larry MD ENDOSCOPY PROCEDURES Edited Resu lt - Final * eGFR (10/03/2024 3:47 PM LITIGATION ASSISTANT) eGFR >90 >=60 mL/min/1. 73 m2 Comment: [...] last reviewed 2021. Blood 10/03/2024 3:47 PM LITIGATION ASSISTANT 10/03/2024 3:50 PM LITIGATION ASSISTANT Kirsten NI LAB BLOOD ORDERABLES Final Result ANNE [address] [facility] Department [place] [address] * Hemoglobin A1c (04/04/2024 11:26 AM CDT) Hgb A1C 5.6 4.0 - 5.6 % Estimated Average Glucose 114 mg/dL ANNE Comment: The ADA recommends reporting an estimated Average Glucose (eAG) with all Hemoglobin A1c results using the equation derived from a study of 507 normal and diabetic adults. Minority populations were underrepresented and children were not included. (Diabetes Care 31:6959-8661, 2008). The eAG is not equivalent to a fasting glucose. Blood 04/04/2024 11:2 6 AM CDT 04/04/2024 12:32 PM CDT us Jose Logan MD LAB BLOOD ORDERABLES Final Resul t ANNE [address] [facility] [place] [address] from Last 3 Months or Most Recently Relevant to Health Maintenance Insurance [facility] [place] [address] [address] Advance Directives For more information, please contact: [phone] * Full Code (Latest Code Status on File) Date Activated Date Inactivated Comments 06/21/2023 11:05 AM 06/23/2023 7:09 PM Care Teams Healthcare Consulting Manager Relationship Specialty Start Date End Date Oliver Doan MD [address] [place] [address] PCP - General Internal Medicine 06/01/23 Jerilyn Tucker MD [address] [place] [address] Consulting Physician Critical Care Med 05/26/23 Javon Hart MD [address] [place] [address] Consulting Physician Pulmonary Disease 06/09/23 Juliana Duenas PA [address] [address] Orthopedic Surgery 06/21/23
--- OUTSIDE RECORDS SUMMARY | 2025-03-28 13:49 | XMS_ITS | Clinical Summary ---
Author Organization [facility] Address [address] [place] [address] Care Team Providers Care Low Pressure Boiler Operator Name Role Phone London Shahid MD Primary Care Provider [phone] Allergies Active Allergy Reactions Criticality Noted Date [...] (10/13/2018): Added automatically from request for surgery [id number] Family History Medical History Relation Comments Breast [...] Colonoscopy (10 Years) 1965 Annual Physical 1968 Hepatitis C 1983 DTaP, Tdap and Td Vaccines ( 1 - Tdap) 1984 Pneumococcal Vaccine: 50+ Ye ars (1 of 2 - PCV) 1984 Mammogram Screening 2005 Zoster Vaccines (1 of 2) 2015 COVID-19 Vaccine ( - 2023-2 5 season) 2024 Meningococcal B Vaccine Aged Out No l onger eligible based on patient's age to complete this topic Meningococcal Vaccine Aged Out No fran nathalie eligible based on patient's age to complete this topic RSV Immunizations Under 20 Months Aged Out No longer eligible based on patient's age to complete this topic [facility] Care Teams Low Pressure Boiler Operator Relationship Specialty Start Date End Date London Shahid MD PCP - General INTERNAL MEDICINE 09/28/18
--- OUTSIDE RECORDS SUMMARY | 2025-03-28 13:49 | XMS_ITS | Encounter Summary ---
Author Organization [facility] Address [facility] [place] [address] Care Team Providers Care Senior Security Analyst Name Role Phone London Shahid MD Primary Care Provider [phone] Encounter Details Date Type Department Care Team (Late st Contact Info) Description 03/27/2019 Telephone [facility] [place] [address] [id number] Scanned, Documents Social History Tobacco Use Types [...] on filedocumented in this encounter Care Teams Senior Security Analyst Relationship Specialty Start Date End Date London Shahid MD PCP - General INTERNAL MEDICINE 09/28/18 documented as of this encounter
--- OUTSIDE RECORDS SUMMARY | 2025-03-28 13:49 | XMS_ITS | Referral Summary ---
Author Organization [facility] [place] [address] Address [address] [place] [address] Care Team Providers Care Public Health Clinical Nurse Specialist Name Role Phone Jerilyn Tucker MD Unavailable [phone] Oliver Doan MD Primary Care Provider [phone] Javon Hart MD Unavailable [phone] Juliana Duenas Unavailable [phone] Encounters Date Type Department Care Team Description 01/23/2025 1:45 PM CDT Office Visit [facility] at [address], [address] Medical Office Building [address] [place] [address] Marti Ayala MD Vasomotor symptoms due to menopause (Primary Dx) from Last 3 Months Allergies Active Allergy [...] 10/17/2024 Assessment & Plan (10/17/2024 3:26 PM FOOD EDITOR): - Contraception: hysterectomy - STI screening discussed. 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 Never 06/22/2023 Do you belong to any clubs o r organizations such as faith groups, unions, fraternal or athletic groups, or [...] place to sleep or slept in a prison (including now)? No 06/22/2023 Personal Safety Answer Date Recorded Have you ever been in or are you currently in a harmful physical or emotional relationship or is someone making you feel afraid or unsafe? Denies 11/27/2024 Comments No Sex and Gender Information Value Date Recorded Sex Assigned at Not on file Legal Sex Female 1:17 AM FOOD EDITOR Gender Identity Not on file Sexual Orientation Not on file Occupation Industry Job Start Date Job End Date Disabled, used to work in [employer] Not on file Not on file Not on file Last Filed Vital Signs Vital Sign Reading Time Taken Comments Blood Pressure 124/72 01/23/2025 1:21 PM CDT Pulse 98 01/23/2025 1:21 PM CDT Temperature 37.2 C (99 F) 11/27/2024 11:58 AM FOOD EDITOR Respiratory Rate 18 01/23/2025 1:21 PM CDT Oxygen Saturation 97% 01/23/2025 1:21 PM CDT Inhaled Oxygen Concentration - - Weight 84.4 kg (186 lb 1.1 oz) 01/23/2025 1:21 P M CDT Height 160 cm (5' 3 ) 01/23/2025 1:21 PM CDT Body Mass Index 32.96 01/23/2025 1:21 PM CDT Plan of Treatment Not on file Medical Devices Implanted Type Area Gas Plant Dispatcher Device Identifier Shelf Expiration Date Model / Serial / Lot [employer] Simplex P Radiopaque Full Dose Cement Bone Sterile 6191-1-010 - [id number] Implanted:Qty: 2 on 06/21/2023 by Baljinder Sage DO at [facility] [employer] 09/13/2025 6191-1-010 / / [id number] [employer] Persona Cruciate Retaining Cemented Knee Right 7 Narrow Component [id number] - [id number] Implanted:Qty: 1 on 06/21/2023 by Baljinder Sage DO at [facility] [employer] [id number] 01/06/2033 [id number] / / [id number] [employer] [id number] Persona Natural Tibia Stem Knee Right 5d D Baseplate Tibial - [id number] Implanted:Qty: 1 on 06/21/2023 by Baljinder Sage DO at [facility] [employer] [id number] 03/29/2033 [id number] / / [id number] Explanted Type Area Gas Plant Dispatcher Device Identifier Shelf Expiration Date Model / Serial / Lot [employer] Persona 10mm Knee Right 6-7 C-D Insert Articular Vivacit-E [id number] - [id number] Explanted:Qty: 1 on 06/21/2023 at [facility] [employer] [id number] 11/30/2027 [id number] / / [id number] Procedures Procedure Name Priority Date/Time Associated Diagnosis Comments COLONOSCOPY 11/27/2024 12:29 PM FOOD EDITOR EGFR STAT 10/03/2024 3:47 PM FOOD EDITOR HEMOGLOBIN A1C Routine 04/04/2024 11:26 AM CDT Paresthesia of skin from Last 3 Months or Most Recently Relevant to Health Maintenance Results * Colonoscopy (11/27/2024 12:29 PM FOOD EDITOR) Anatomical Region Laterality Modality Other Narrative Procedure Note Jairo Larry MD - 11/27/2024 12:29 PM CST [facility] Endoscopy [facility] Patient Name: Dolly Lucas Procedure Date: 11/27/2024 12:29 PM Date of : 1965 Admit Type: Outpatient Age: 58 Gender: Female Note Status: Finalized Attending MD: Jairo Larry M.D. Procedure Date: 11/27/2024 Procedure: Colonoscopy Indications: Screening for colorectal malignant neoplasm Providers: Jairo Larry M.D., Roxi Sullivan CRNA (Anesthesia Staff), Fay Squires RN, Jakob, Credit Card Control Clerk Referring MD: Oliver Doan M.D. Medicines: Monitored [...] years forsurveillance. Procedure Code(s): --- Professional --- 44881, Colonoscopy, flexible; with biopsy, singleor multiple Diagnosis Code(s): --- Professional --- K57.30, Diverticulosis of large intestine without perforation or abscess without bleeding D12.4, Benign neoplasm of descending colon Z12.11, Encounter for screening for malignantneoplasm of colon CPT copyright 2020 [employer] [place] [employer]. All rights reserved. The codes documented in this report are preliminary and upon nursing agency manager reviewmay be revised to meet current compliance requirements. Dr. Jairo Larry MD Jairo Larry M.D. 11/27/2024 1:00:33 PM This report has been electronically signed by the physician. Number of Addenda: 0 Note Initiated On: 11/27/2024 12:29 PM us Jairo Larry MD ENDOSCOPY PROCEDURES Edited Resu lt - Final * eGFR (10/03/2024 3:47 PM FOOD EDITOR) eGFR >90 >=60 mL/min/1. 73 m2 Comment: [...] last reviewed 2021. Blood 10/03/2024 3:47 PM FOOD EDITOR 10/03/2024 3:50 PM FOOD EDITOR Kirsten NI LAB BLOOD ORDERABLES Final Result Performing Organization Address City/[facility]/ZIP Co de Phone Number S[address] [address] * Hemoglobin A1c (04/04/2024 11:26 AM CDT) Hgb A1C 5.6 4.0 - 5.6 % Estimated Average Glucose 114 mg/dL [facility] Comment: The ADA recommends reporting an estimated Average Glucose (eAG) with all Hemoglobin A1c results using the equation derived from a study of 507 normal and diabetic adults. Minority populations were underrepresented and children were not included. (Diabetes Care 31:2840-4029, 2008). The eAG is not equivalent to a fasting glucose. Blood 04/04/2024 11:2 6 AM CDT 04/04/2024 12:32 PM CDT Jose Logan MD LAB BLOOD ORDERABLES Final Resul t Performing Organization Address City/[facility] Co de Phone Number [address] [address] from Last 3 Months or Most Recently Relevant to Health Maintenance Insurance [facility] Member Subscriber Plan / Payer (Ef fective 2021-Present) Name:Dolly Lucas Relation to Subscriber:Self Name:Dolly Lucas Payer ID:[id number] (NAIC) Group ID:Not on file Type:MEDICAID RISK OTHER Address: ATTN: CLAIMS DEPT [address] [place], [place] [id number] [id number] Advance Directives For more information, please contact: [phone] * Full Code (Latest Code Status on File) Date Activated Date Inactivated Comments 06/21/2023 11:05 AM 06/23/2023 7:09 PM Care Teams Public Health Clinical Nurse Specialist Relationship Specialty Start Date End Date Oliver Doan MD [address] [place] [address] PCP - General Internal Medicine 06/01/23 Jerilyn Tucker MD [address] [address] Consulting Physician Critical Care Med 05/26/23 Javon Hart MD [address] [place] [address] Consulting Physician Pulmonary Disease 06/09/23 Juliana Duenas PA [address] [address] Orthopedic Surgery 06/21/23
--- NOTE | 2025-03-28 13:50 | ECG_ITS ---
Test Date: 2025-03-28 13:55:21 Measurements Intervals [place] Rate: 84 P: 63 [place]: 149 QRS: 36 QRSD: 83 T: 71 QT: 338 QTc: 402 Interpretive Statements SINUS RHYTHM NORMAL ECG No previous ECG available for comparison Electronically Signed On 03-29-2025 09:43:22 CDT by Ar Salazar M.D.
[2025-03-28 14:07] LABS: Hematocrit 37.7 % (37.0-47.0); Hemoglobin 12.7 g/dL (12.0-15.0); Immature Granulocyte Absolute 0.01 K/mm3 (0.00-0.031); Immature Granulocyte Percent A 0.2 % (0-0.5); Lymphocytes Absolute Auto 0.86 K/mm3 (0.9-3.2); Lymphocytes Percent Auto 15.8 % (18.3-44.2); Mean Corpuscular HGB Conc 33.7 g/dl (32-36); Mean Corpuscular Hemoglobin 28.2 pg (26-34); Mean Corpuscular Volume 83.6 fl (80-100); Monocytes Absolute Auto 0.2 K/mm3 (0.1-0.6); Monocytes Percent Auto 2.9 % (2.6-8.5); Neutrophils Absolute Auto 4.4 K/mm3 (1.3-6.7); Neutrophils Percent Auto 81.1 % (45.5-73.1); Platelet Count Result 231 k/mm3 (150-375); Red Blood Count 4.51 M/mm3 (4.2-5.4); Red Cell Distribution Width 13.7 % (11.5-14.5); White Blood Count 5.4 K/mm3 (4.5-10.0)
[2025-03-28] MEDS: methylPREDNISolone SOD SUCC 40 MG VIAL IV PUSH (14:08)
[2025-03-28] MEDS: MAGNESIUM SULF 2 GM/WATER 50ML 2 GM/50 ML BAG IVPB (14:10)
--- OUTSIDE RECORDS SUMMARY | 2025-03-28 14:24 | XMS_ITS | Clinical Summary ---
Author Organization [facility] Address [address] [place] [address] Care Team Providers Care Management Instructor Name Role Phone London Shahid MD Primary Care Provider [phone] Allergies Active Allergy Reactions Criticality Noted Date [...] (10/13/2018): Added automatically from request for surgery [id number] Family History Medical History Relation Comments Breast [...] patient's age to complete this topic [facility] Care Teams Management Instructor Relationship Specialty Start Date End Date London Shahid MD PCP - General INTERNAL MEDICINE 09/28/18
--- OUTSIDE RECORDS SUMMARY | 2025-03-28 14:24 | XMS_ITS | Referral Summary ---
Author Organization [facility] [place] [address] Address [address] [place] [address] Care Team Providers Care Healthcare Educator Name Role Phone Jerilyn Tucker MD Unavailable [phone] Oliver Doan MD Primary Care Provider [phone] Javon Hart MD Unavailable [phone] Juliana Duenas Unavailable [phone] Encounters Date Type Department Care Team Description 01/23/2025 1:45 PM CDT Office Visit [facility] at [address], [address] Medical Office Building [address] [place] [address] Marti Ayala MD Vasomotor symptoms [...] 10/17/2024 Assessment & Plan (10/17/2024 3:26 PM TRIP FOLLOWER): - Contraception: hysterectomy - STI screening discussed. [...] 10/17/2024 Assessment & Plan (10/17/2024 3:39 PM TRIP FOLLOWER): We discussed symptoms of both perimenopause and [...] 06/21/2023 Assessment & Plan (09/21/2023 12:00 PM TRIP FOLLOWER): Discussed with the patient that her x-rays [...] (08/03/2023): Added automatically from request for surgery [id number] Added automatically from request for surgery [id number] Hypertension 01/01/2016 Pulmonary arterial hypertension 01/01/2016 Tobacco [...] How often do you attend chur or sabianist services? Never 06/22/2023 Do you belong to any clubs o r organizations such as episcopalian groups, unions, fraternal or athletic groups, or [...] on file Legal Sex Female 1:17 AM TRIP FOLLOWER Gender Identity Not on file Sexual Orientation Not on file Occupation Industry Job Start Date Job End Date Disabled, used to work in [employer] Not on file Not on file Not on file Last Filed Vital Signs Vital Sign Reading Time Taken Comments Blood Pressure 124/72 01/23/2025 1:21 PM CDT Pulse 98 01/23/2025 1:21 PM CDT Temperature 37.2 C (99 F) 11/27/2024 11:58 AM TRIP FOLLOWER Respiratory Rate 18 01/23/2025 1:21 PM CDT Oxygen Saturation 97% 01/23/2025 1:21 PM CDT Inhaled Oxygen Concentration - - Weight 84.4 kg (186 lb 1.1 oz) 01/23/2025 1:21 P M CDT Height 160 cm (5' 3 ) 01/23/2025 1:21 PM CDT Body Mass Index 32.96 01/23/2025 1:21 PM CDT Plan of Treatment Not on file Medical Devices Implanted Type Area Medical Stenographer Device Identifier Shelf Expiration Date Model / Serial / Lot [employer] Simplex P Radiopaque Full Dose Cement Bone Sterile 6191-1-010 - [id number] Implanted:Qty: 2 on 06/21/2023 by Baljinder Sage DO at [facility] [employer] 09/13/2025 6191-1-010 / / [id number] [employer] Persona Cruciate Retaining Cemented Knee Right 7 Narrow Component [id number] - [id number] Implanted:Qty: 1 on 06/21/2023 by Baljinder Sage DO at [facility] [employer] [id number] 01/06/2033 [id number] / / [id number] [employer] [id number] Persona Natural Tibia Stem Knee Right 5d D Baseplate Tibial - [id number] Implanted:Qty: 1 on 06/21/2023 by Baljinder Sage DO at [facility] [employer] [id number] 03/29/2033 [id number] / / [id number] Explanted Type Area Medical Stenographer Device Identifier Shelf Expiration Date Model / Serial / Lot [employer] Persona 10mm Knee Right 6-7 C-D Insert Articular Vivacit-E [id number] - [id number] Explanted:Qty: 1 on 06/21/2023 at [facility] [employer] [id number] 11/30/2027 [id number] / / [id number] Procedures Procedure Name Priority Date/Time Associated Diagnosis Comments COLONOSCOPY 11/27/2024 12:29 PM TRIP FOLLOWER EGFR STAT 10/03/2024 3:47 PM TRIP FOLLOWER HEMOGLOBIN A1C Routine 04/04/2024 11:26 AM CDT Paresthesia of skin from Last 3 Months or Most Recently Relevant to Health Maintenance Results * Colonoscopy (11/27/2024 12:29 PM TRIP FOLLOWER) Anatomical Region Laterality Modality Other Narrative Procedure Note Jairo Larry MD - 11/27/2024 12:29 PM CST [facility] Endoscopy Lab Patient Name: Dolly Lucas Procedure Date: 11/27/2024 12:29 PM Date of : 1965 Admit Type: Outpatient Age: 58 Gender: Female Note Status: Finalized Attending MD: Jairo Larry M.D. Procedure Date: 11/27/2024 Procedure: Colonoscopy Indications: Screening for colorectal malignant neoplasm Providers: Jairo Larry M.D., Roxi Sullivan CRNA (Anesthesia Staff), Fay Squires RN, Jakob, Java Portal Developer Referring MD: Oilver Doan M.D. Medicines: Monitored Anesthesia Care Complications: [...] years forsurveillance. Procedure Code(s): --- Professional --- 02367, Colonoscopy, flexible; with biopsy, singleor multiple Diagnosis Code(s): --- Professional --- K57.30, Diverticulosis of large intestine without perforation or abscess without bleeding D12.4, Benign neoplasm of descending colon Z12.11, Encounter for screening for malignantneoplasm of colon CPT copyright 2020 [employer]. All rights reserved. The codes documented in this report are preliminary and upon flight attendant inflight services reviewmay be revised to meet current compliance requirements. Dr. Jairo Larry MD Jairo Larry M.D. 11/27/2024 1:00:33 PM This report has been electronically signed by the physician. Number of Addenda: 0 Note Initiated On: 11/27/2024 12:29 PM us Jairo Larry MD ENDOSCOPY PROCEDURES Edited Resu lt - Final * eGFR (10/03/2024 3:47 PM TRIP FOLLOWER) eGFR >90 >=60 mL/min/1. 73 m2 Comment: [...] last reviewed 2021. Blood 10/03/2024 3:47 PM TRIP FOLLOWER 10/03/2024 3:50 PM TRIP FOLLOWER Kirsten NI LAB BLOOD ORDERABLES Final Result Performing Organization Address City/[facility]/ZIP Co de Phone Number SATH[address] [address] * Hemoglobin A1c (04/04/2024 11:26 AM CDT) Hgb A1C 5.6 4.0 - 5.6 % Estimated Average Glucose 114 mg/dL [facility] Comment: The ADA recommends reporting an estimated Average Glucose (eAG) with all Hemoglobin A1c results using the equation derived from a study of 507 normal and diabetic adults. Minority populations were underrepresented and children were not included. (Diabetes Care 31:6043-1064, 2008). The eAG is not equivalent to a fasting glucose. Blood 04/04/2024 11:2 6 AM CDT 04/04/2024 12:32 PM CDT Jose Logan MD LAB BLOOD ORDERABLES Final Resul t Performing Organization Address City/[facility] Co de Phone Number S[address] [address] from Last 3 Months or Most Recently Relevant to Health Maintenance Insurance [facility] Member Subscriber Plan / Payer (Ef fective 2021-Present) Name:Dolly Lucas Relation to Subscriber:Self Name:Dolly Lucas Payer ID:[id number] (NAIC) Group ID:Not on file Type:MEDICAID RISK OTHER Address: ATTN: CLAIMS DEPT [address] [place], [place] [id number] [id number] Advance Directives For more information, please contact: [phone] * Full Code (Latest Code Status on File) Date Activated Date Inactivated Comments 06/21/2023 11:05 AM 06/23/2023 7:09 PM Care Teams Healthcare Educator Relationship Specialty Start Date End Date Oliver Doan MD [address] [place] [address] PCP - General Internal Medicine 06/01/23 Jerilyn Tucker MD [address] [address] Consulting Physician Critical Care Med 05/26/23 Javon Hart MD [address] [place] [address] Consulting Physician Pulmonary Disease 06/09/23 Juliana Duenas PA [address] [address] Orthopedic Surgery 06/21/23
--- OUTSIDE RECORDS SUMMARY | 2025-03-28 14:24 | XMS_ITS | Encounter Summary ---
Author Organization [facility] Address [facility] [place] [address] Care Team Providers Care Electronics Mechanic Apprentice Name Role Phone London Shahid MD Primary Care Provider [phone] Encounter Details Date Type Department Care Team (Late st Contact Info) Description 03/27/2019 Telephone [facility] Interventional [facility] Management [place] [address] [id number] Scanned, Documents Social History Tobacco Use Types [...] on filedocumented in this encounter Care Teams Electronics Mechanic Apprentice Relationship Specialty Start Date End Date Londno Shahid MD PCP - General INTERNAL MEDICINE 09/28/18 documented as of this encounter
--- OUTSIDE RECORDS SUMMARY | 2025-03-28 14:24 | XMS_ITS | Clinical Summary ---
Author Organization [facility] Address [address] [place] [address] Care Team Providers Care Route Relief Driver Name Role Phone Unavailable Primary Care Provider Unavailabl e Social History Tobacco Use Types Packs/Day Years Used Date Smoking Tobacco: Never Assessed Comments Unknown Sex and Gender Information Value Date Recorded Sex Assigned at Not on file Legal Sex Female 9:05 AM WARNING COORDINATION METEOROLOGIST Gender Identity Not on file Sexual Orientation [...]
--- OUTSIDE RECORDS SUMMARY | 2025-03-28 14:24 | XMS_ITS | Clinical Summary ---
Author Organization [facility] [address] Address [address] [place] [address] Care Team Providers Care Vending Supervisor Name Role Phone Jerilyn Tucker MD Unavailable [phone] Oliver Doan MD Primary Care Provider [phone] Javon Hart MD Unavailable [phone] Juliana Duenas Unavailable [phone] Allergies Active Allergy Reactions Criticality Noted Date [...] 10/17/2024 Assessment & Plan (10/17/2024 3:26 PM SURGERY SPECIALIST): - Contraception: hysterectomy - STI screening [...] 10/17/2024 Assessment & Plan (10/17/2024 3:39 PM SURGERY SPECIALIST): We discussed symptoms of both perimenopause [...] 06/21/2023 Assessment & Plan (09/21/2023 12:00 PM SURGERY SPECIALIST): Discussed with the patient that her [...] (08/03/2023): Added automatically from request for surgery [id number] Added automatically from request for surgery [id number] Hypertension 01/01/2016 Pulmonary arterial hypertension 01/01/2016 Tobacco dependence syndrome 01/01/2016 Knee pain 04/23/2015 Encounters Date Type Department Care Team Description 01/23/2025 1:45 PM CDT Office Visit [facility] [id number] [place] [address], [address] Medical Office Building [address] [place] [address] Marti Ayala MD Vasomotor symptoms due to menopause (Primary Dx) from Last 3 Months Immunizations Immunization Administration Dates Next Due Pfizer SARS-CoV-2 Monovalent Vaccination (12+ Yrs) PURPLE 02/12/2021 Surgical History Surgery Date Site/Laterality Comments ID TOTAL ABDOMINAL HYSTERECT W/WO RMVL TUBE OVARY Hysterectomy - (Added by TW Conv) ID OOPHORECTOMY PARTIAL/TOTA L UNI/BI Oophorectomy Unilateral Left Side - (Added by TW Conv) ID DELIVERY ONLY x2 CHOLECYSTECTOMY lap MULTIPLE TOOTH [...] often do you attend chur ch or anglican services? Never 06/22/2023 Do you belong to any clubs o r organizations such as scientology groups, unions, fraternal or athletic groups, or [...] place to sleep or slept in a senior living (including now)? No 06/22/2023 Personal Safety Answer Date Recorded Have you ever been in or are you currently in a harmful physical or emotional relationship or is someone making you feel afraid or unsafe? Denies 11/27/2024 Comments No Sex and Gender Information Value Date Recorded Sex Assigned at Not on file Legal Sex Female 1:17 AM SURGERY SPECIALIST Gender Identity Not on file Sexual Orientation Not on file Occupation Industry Job Start Date Job End Date Disabled, used to work in [employer] Not on file Not on file Not [...] 37.2 C (99 F) 11/27/2024 11:58 AM SURGERY SPECIALIST Respiratory Rate 18 01/23/2025 1:21 PM [...] Discontinued 11/27/2024 Medical Devices Implanted Type Area Coding Support Specialist Device Identifier Shelf Expiration Date Model / Serial / Lot [employer] Simplex P Radiopaque Full Dose Cement Bone Sterile 6191-1-010 - [id number] Implanted:Qty: 2 on 06/21/2023 by Baljinder Sage DO at [facility] [employer] 09/13/2025 6191-1-010 / / [id number] [employer] Persona Cruciate Retaining Cemented Knee Right 7 Narrow Component [id number] - [id number] Implanted:Qty: 1 on 06/21/2023 by Baljinder Sage DO at [facility] [employer] [id number] 01/06/2033 [id number] / / [id number] [employer] [id number] Persona Natural Tibia Stem Knee Right 5d D Baseplate Tibial - [id number] Implanted:Qty: 1 on 06/21/2023 by Baljinder Sage DO at [facility] [employer] [id number] 03/29/2033 [id number] / / [id number] Explanted Type Area Coding Support Specialist Device Identifier Shelf Expiration Date Model / Serial / Lot [employer] Persona 10mm Knee Right 6-7 C-D Insert Articular Vivacit-E [id number] - [id number] Explanted:Qty: 1 on 06/21/2023 at [facility] [employer] [id number] 11/30/2027 [id number] / / [id number] Procedures Procedure Name Priority Date/Time Associated Diagnosis Comments COLONOSCOPY 11/27/2024 12:29 PM SURGERY SPECIALIST EGFR STAT 10/03/2024 3:47 PM SURGERY SPECIALIST HEMOGLOBIN A1C Routine 04/04/2024 11:26 AM CDT Paresthesia of skin from Last 3 Months or Most Recently Relevant to Health Maintenance Results * Colonoscopy (11/27/2024 12:29 PM SURGERY SPECIALIST) Anatomical Region Laterality Modality Other Narrative Procedure Note Jairo Larry MD - 11/27/2024 12:29 PM CST [facility] Patient Name: Dolly Lucas Procedure Date: 11/27/2024 12:29 PM Date of : 1965 Admit Type: Outpatient Age: 58 Gender: Female Note Status: Finalized Attending MD: Jairo Larry M.D. Procedure Date: 11/27/2024 Procedure: Colonoscopy Indications: Screening for colorectal malignant neoplasm Providers: Jairo Larry M.D., Roxi Sullivan CRNA (Anesthesia Staff), Fay Squires RN, Jakob, Admitting Representative Referring MD: Oliver Doan M.D. Medicines: Monitored [...] years forsurveillance. Procedure Code(s): --- Professional --- 87053, Colonoscopy, flexible; with biopsy, singleor multiple Diagnosis Code(s): --- Professional --- K57.30, Diverticulosis of large intestine without perforation or abscess without bleeding D12.4, Benign neoplasm of descending colon Z12.11, Encounter for screening for malignantneoplasm of colon CPT copyright 2020 [employer]. All rights reserved. The codes documented in this report are preliminary and upon manager of applications development reviewmay be revised to meet current compliance requirements. Dr. Jairo Larry MD Jairo Larry M.D. 11/27/2024 1:00:33 PM This report has been electronically signed by the physician. Number of Addenda: 0 Note Initiated On: 11/27/2024 12:29 PM Jairo Larry MD ENDOSCOPY PROCEDURES Edited Resu lt - Final * eGFR (10/03/2024 3:47 PM SURGERY SPECIALIST) eGFR >90 >=60 mL/min/1. 73 m2 [...] last reviewed 2021. Blood 10/03/2024 3:47 PM SURGERY SPECIALIST 10/03/2024 3:50 PM SURGERY SPECIALIST Kirsten NI LAB BLOOD ORDERABLES Final Result ANNE [address] [facility] Department [place] [address] * Hemoglobin A1c (04/04/2024 11:26 AM CDT) Hgb A1C 5.6 4.0 - 5.6 % Estimated Average Glucose 114 mg/dL ANNE Comment: The ADA recommends reporting an estimated Average Glucose (eAG) with all Hemoglobin A1c results using the equation derived from a study of 507 normal and diabetic adults. Minority populations were underrepresented and children were not included. (Diabetes Care 31:6940-8660, 2008). The eAG is not equivalent to a fasting glucose. Blood 04/04/2024 11:2 6 AM CDT 04/04/2024 12:32 PM CDT us Jose Logan MD LAB BLOOD ORDERABLES Final Resul t ANNE [address] [facility] Department [place] [address] from Last 3 Months or Most Recently Relevant to Health Maintenance Insurance [facility] [place] [address] [place] [address] Advance Directives For more information, please contact: [phone] * Full Code (Latest Code Status on File) Date Activated Date Inactivated Comments 06/21/2023 11:05 AM 06/23/2023 7:09 PM Care Teams Vending Supervisor Relationship Specialty Start Date End Date Oliver Doan MD [address] [place] [address] PCP - General Internal Medicine 06/01/23 Jerilyn Tucker MD [address] [place] [address] Consulting Physician Critical Care Med 05/26/23 Javon Hart MD [address] [place] [address] Consulting Physician Pulmonary Disease 06/09/23 Juliana Duenas PA [address] [address] Orthopedic Surgery 06/21/23
--- OUTSIDE RECORDS SUMMARY | 2025-03-28 14:24 | XMS_ITS | Encounter Summary ---
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 Gender Identity Not on file Sexual Orientation [...] documented as of this encounter Care Teams Human Service Technician Relationship Specialty Start Date End Date Oliver Doan MD [address] [place] [address] PCP - General Internal Medicine 05/18/20 05/25/23 Oliver Doan MD [address] [place] [address] PCP - General Internal Medicine 06/01/23 Jerilyn Tucker MD [address] [address] Consulting Physician Critical Care Med 05/26/23 Javon Hart MD [address] [address] Consulting Physician Pulmonary Disease 06/09/23 Juliana Duenas PA [address] [address] Orthopedic Surgery 06/21/23 documented as of this encounter
[2025-03-28 14:37] LABS: Alanine Aminotransferase 25 U/L (6-35); Albumin Level 4.4 g/dL (3.5-5.1); Alkaline Phosphatase 80 U/L (38-126); Anion Gap 9 mmol/L (4-12); Aspartate Amino Transferase 26 U/L (14-36); Bilirubin,Total 0.7 mg/dL (0.2-1.3); Blood Urea Nitrogen 12 mg/dL (7-17); Calcium 9.1 mg/dL (8.4-10.2); Carbon Dioxide 23 mmol/L (22-30); Chloride 108 mmol/L (98-107); Estimated Glomerular Filt Rate > 60; Glucose 123 mg/dL (65-110); Sodium 140 mmol/L (137-145)
[2025-03-28] MEDS: IPRATROPIUM 0.5 MG/ALBUTEROL SULFATE 2.5 MG AMPUL.NEB 3 ML 10 ML INHALATION (15:08)
--- NOTE | 2025-03-28 16:35 | ED.SOB ---
HPI - SOB/Dyspnea General Chief Complaint: Shortness of Breath/Dyspnea Stated Complaint: Shortness of breath Time Seen by Provider: 03/28/25 13:55 History of Present Illness HPI Narrative: Patient presenting here with shortness of breath, does have history of asthma, COPD, sarcoidosis, DVT on Eliquis, has been having increasing shortness of breath despite breathing treatments and increased steroids at home and is concerned she may have pneumonia. Related Data Home Medications Medication Instructions Recorded Confirmed Last Taken Type hydrochlorothiazide 25 mg tablet 25 mg PO DAILY 05/18/20 11/12/24 05/17/20 09:00 History losartan 25 mg tablet 25 mg PO DAILY 05/18/20 11/12/24 05/17/20 09:00 History cyclobenzaprine 10 mg tablet 10 mg PO DAILY PRN Pain 04/24/21 11/12/24 Unknown History fluticasone propionate 50 2 spray intranasal DAILY 04/24/21 11/12/24 Unknown History mcg/actuation nasal spray,suspension metformin 500 mg tablet,extended 500 mg PO BID 04/24/21 11/12/24 Unknown History release 24 hr ondansetron 4 mg disintegrating 4 mg PO Q4-6H PRN Nausea 04/24/21 11/12/24 Unknown History tablet apixaban 5 mg tablet (Eliquis) 5 mg PO BID 04/27/21 11/12/24 Unknown History semaglutide 1 mg/dose (2 mg/1.5 1 mg subcut WEEKLY 09/13/23 11/12/24 Unknown History mL) subcutaneous pen injector (Ozempic) Allergies Allergy/AdvReac Type Severity Reaction Status Date / Time iohexol (From contrast - CT, Allergy Anaphylaxis Verified 03/28/25 13:44 X-RAY) levofloxacin (From Levaquin) Allergy Anaphylaxis Verified 03/28/25 13:44 Nwpgfwt-KPM-XfN Reductase Allergy Anaphylaxis Verified 03/28/25 13:44 Inhibitor (Rqoragp-Fzx-Xtg Reductase Inhibitor) tramadol Allergy Anaphylaxis Verified 03/28/25 13:44 Review of Systems Review of Systems: All systems reviewed & are unremarkable except as noted in HPI and below PMFSH Past Medical History Medical History FH: total knee replacement Tobacco dependence Nephrolithiasis Chronic pain syndrome Low back and knees. Thyroid nodule Osteoarthritis Hyperlipidemia Type 2 diabetes mellitus (Unknown) Asthma Hypertension History of pulmonary embolism Recurrent PEs in 1988, 2007, and 2019. On long-term apixaban. Surgical History Surgical History History of laparoscopic cholecystectomy 04/26/21 History of 3 sections History of hysterectomy (2006) Family History Family History Father Acute pulmonary edema Hypertension Mother Breast cancer Social History Social History Social History: The patient lives alone in [place]. She has had 3 children. On disability. Smokes 1 pack of cigarettes per day and has for years. No alcohol or illicit substance abuse. She designates her sister, Nika Crisostomo or her Jillian Rasmussen as her surrogate decision makers and she wishes to be a full code. Smoking packs per day: 1 Smoking cigarettes per day: 20.0 Years smoked: 20 Smoking pack-years: 20.00 Smoking status: Current every day smoker (down to 1-2 cigs, sometimes not every day) Tobacco type: cigarettes Exam Narrative: EXAMINATION OF ORGAN SYSTEMS/BODY AREAS: Constitutional: Vital signs per nursing GENERAL:[No acute distress, non-toxic appearing.] HEAD: Normal with no signs of head trauma. EYES: EOMI, conjunctiva normal ENT: Hearing grossly intact LUNGS: Nonlabored breathing. Clear to auscultation bilaterally HEART: [Regular rate and rhythm] ABD: [Soft], [nontender to palpation] EXT: Normal range of motion SKIN: [No rashes or lesions.] NEURO: [Alert and oriented x 3. No gross focal sensory or strength deficits.] PSYCH: Normal affect Course Vital Signs Vital signs: Vital Signs Temperature 98.7 F 03/28/25 13:51 Pulse Rate 90 03/28/25 13:51 Respiratory Rate 20 03/28/25 13:51 Blood Pressure 164/91 H 03/28/25 13:51 Pulse Oximetry 100 03/28/25 13:51 Oxygen Delivery Room Air 03/28/25 13:51 Temperature 98.7 F 03/28/25 13:51 Pulse Rate 98 03/28/25 16:25 Respiratory Rate 15 03/28/25 16:25 Blood Pressure 162/91 H 0515/25 16:23 Pulse Oximetry 100 03/28/25 16:25 Oxygen Delivery Room Air 03/28/25 14:43 MDM - SOB/Dyspnea MDM Narrative Medical decision making narrative: Patient with history of asthma, sarcoidosis, BT on Eliquis, presents here with shortness of breath for the last few days, despite breathing treatments and steroids at home, she is well-appearing on exam, lungs are clear to auscultation bilaterally, in no distress. EKG on my independent interpretation shows normal sinus rhythm rate 84, MD 149, QRS 83, QTC 402, no signs of acute ischemia or arrhythmia Chest x-ray on my independent interpretation does not show any obvious consolidations or pneumothorax Labs obtained within acceptable limits. On re-evaluation after breathing treatment she does feel better, I discussed findings with her, she feels fine going home with close outpatient management and strict return precautions. Lab Data 03/28/25 14:01 03/28/25 14:01 Labs: Lab Results 03/28/25 Range/Units 14:01 WBC 5.4 (4.5-10.0) K/mm3 RBC 4.51 (4.2-5.4) M/mm3 Hgb 12.7 (12.0-15.0) g/dL Hct 37.7 (37.0-47.0) % MCV 83.6 (80-100) fl MCH 28.2 (26-34) pg MCHC 33.7 (32-36) g/dl RDW 13.7 (11.5-14.5) % Plt Count 231 (150-375) k/mm3 MPV 11.0 H (7.4-10.4) fl Immature Gran % (Auto) 0.2 (0-0.5) % Neut % (Auto) 81.1 H (45.5-73.1) % Lymph % (Auto) 15.8 L (18.3-44.2) % Winston % (Auto) 2.9 (2.6-8.5) % Eos % (Auto) 0.0 (0-4.4) % Baso % (Auto) 0.0 L (0.2-1.2) % Lymph # (Auto) 0.86 L (0.9-3.2) K/mm3 Winston # (Auto) 0.2 (0.1-0.6) K/mm3 Eos # (Auto) 0.0 (0-0.3) K/mm3 Baso # (Auto) 0.0 (0.0-0.1) K/mm3 Abs Immat Gran (auto) 0.01 (0.00-0.031) K/mm3 Absolute Neuts (auto) 4.4 (1.3-6.7) K/mm3 Absolute Nucleated RBC 0.000 (0.0-0.012) K/mm3 Nucleated RBC % 0.0 (0.0-0.2) % Sodium 140 (137-145) mmol/L Potassium 4.0 (3.4-5.0) mmol/L Chloride 108 H (98-107) mmol/L Carbon Dioxide 23 (22-30) mmol/L Anion Gap 9 (4-12) mmol/L BUN 12 (7-17) mg/dL Creatinine 0.72 (0.7-1.0) mg/dL Estim Creat Clear Calc Not Reportable Estimated GFR > 60 (59 - ) Glucose 123 H (65-110) mg/dL Calcium 9.1 (8.4-10.2) mg/dL Total Bilirubin 0.7 (0.2-1.3) mg/dL AST 26 (14-36) U/L ALT 25 (6-35) U/L Alkaline Phosphatase 80 (38-126) U/L Total Protein 8.0 (6.3-8.2) g/dL Albumin 4.4 (3.5-5.1) g/dL Discharge Plan Discharge Clinical Impression: Asthma exacerbation, Shortness of breath Patient Disposition: Home Condition: Stable Instructions: Asthma (ED) Additional Instructions: Please follow up with your doctor; you can always return for any further issues. Patient Language: Setswana Prescriptions: No Action (DME) nebulizers Misc See Rx Instructions .Route Qty: 1 0RF Rx Instructions: As directed albuterol sulfate 90 mcg/actuation HFA aerosol inhaler 1 - 2 puff inhalation Q4-6H PRN (Reason: shortness of breath or wheezing) Qty: 8.5 2RF Ozempic 1 mg/dose (2 mg/1.5 mL) pen injector 1 mg subcut WEEKLY losartan 25 mg tablet 25 mg PO DAILY hydrochlorothiazide 25 mg tablet 25 mg PO DAILY cyclobenzaprine 10 mg Tablet 10 mg PO DAILY PRN (Reason: Pain) ondansetron 4 mg Tablet,Disintegrating 4 mg PO Q4-6H PRN (Reason: Nausea) fluticasone propionate 50 mcg/actuation spray,suspension 2 spray INTRANASAL DAILY metformin 500 mg tablet extended release 24 hr 500 mg PO BID Eliquis 5 mg Tablet 5 mg PO BID hydrocodone-acetaminophen 5-325 mg Tablet 1 tablet PO Q6H PRN (Reason: breakthrough pain) Qty: 10 0RF Spiriva Respimat 1.25 mcg/actuation mist 2 puff inhalation Q24H 30 Days Qty: 4 5RF budesonide-formoterol [Symbicort] 160-4.5 mcg/actuation HFA aerosol inhaler 2 puff inhalation Q12H Qty: 10.2 5RF Rx Instructions: Rinse and spit prednisone 10 mg tablet See Rx Instructions .ROUTE .COMPLEX Qty: 30 1RF Dose Instruction: TAKE 4 TABLETS BY MOUTH DAILY FOR 3 DAYS IN THE MORNING WITH FOOD, DECREASED BY 1 TABLET EVERY 3 DAYS UNTIL COMPLETED. Rx Instructions: TAKE 4 TABLETS BY MOUTH DAILY FOR 3 DAYS IN THE MORNING WITH FOOD, DECREASED BY 1 TABLET EVERY 3 DAYS UNTIL COMPLETED. Follow-up/Referrals: Franki,Oliver Miller MD [Primary Care Provider] - 2 Days
== END 2025-03-28 16:31 | disposition home or self-care (01) ==
PROVIDERS: Emergency Provider Emergency Medicine; PCP Internal Medicine
DX: J45.901 Unspecified asthma with (acute) exacerbation (principal); J44.9 Chronic obstructive pulmonary disease, unspecified; Z79.01 Long term (current) use of anticoagulants; I10 Essential (primary) hypertension; Z86.711 Personal history of pulmonary embolism
CPT/HCPCS: 36415; 71046; 80053; 85025; 93005; 94640; 96365; 96375; 99284; J2919; J3475

== ENCOUNTER 2025-04-18 08:42 | Outpatient (CLI) | payer OTHER, SELFPAY ==
--- NOTE | ~2025-04-18 | MM_ITS ---
EXAMINATION: MM screening susan BI w juliet HISTORY: Screening mammogram TECHNIQUE: Craniocaudal and mediolateral oblique 3-D tomosynthesis images were obtained and synthetic 2-D images were generated. CAD analysis was submitted and interpreted. COMPARISON: 03/07/2024 BREAST PARENCHYMAL COMPOSITION: There are scattered areas of fibroglandular density. FINDINGS: There is no evidence of suspicious mass, calcification, or architectural distortion to sugg est malignancy in either breast. IMPRESSION: 1. No mammographic evidence of malignancy. 2. Recommend routine screening mammography in one year. BI-RADS Category 1: Negative Reviewed, dictated and finalized at location B.
--- OUTSIDE RECORDS SUMMARY | 2025-04-18 08:58 | XMS_ITS | Clinical Summary ---
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
== END 2025-04-18 08:43 | disposition home or self-care (01) ==
LOC: ANHIMG 08:43
PROVIDERS: PCP Internal Medicine; Visit Provider Internal Medicine
DX: Z12.31 Encounter for screening mammogram for malignant neoplasm of breast (principal)
CPT/HCPCS: 77063; 77067

== ENCOUNTER 2025-07-04 08:12 | Outpatient (CLI) | payer OTHER, SELFPAY ==
--- NOTE | ~2025-07-04 | CT_ITS ---
EXAMINATION: CT diagnostic chest singleton con DATE: 07/04/2025 08:31 INDICATION: Fibrosing mediastinitis TECHNIQUE: Computed tomography (CT) of the chest was performed without intravenous contrast. The dose-length product was 279.02 mGy-cm. COMPARISON: 08/18/2023 and 09/09/2022 FINDINGS: Thyroid gland is unchanged. Calcified mediastinal and hilar lymph nodes similar to the prior study. Suspect bilateral hilar lymph nodes present similar to prior studies. Heart is not enlarged. Cholecystectomy. Thoracic aorta is minimally calcified and is not aneurysmal. Tracheobronchial tree is patent. No pleural effusion. No pneumothorax. Redemonstration of a suspected right middle lobe AVM, probable prominent feeding vessel and draining vein, with mild surrounding haziness. Appearance is similar to prior studies. Grossly stable reticulonodular opacities scattered throughout both lungs with prominent in the lung apices and right middle lobe. No new focal pulmonary consolidation. IMPRESSION: 1. Grossly stable exam. 2. 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 3. Mediastinal lymphadenopathy, with extensive calcifications, similar to prior studies. Reviewed, dictated and finalized at location Q.
--- OUTSIDE RECORDS SUMMARY | 2025-07-04 08:23 | XMS_ITS | Clinical Summary ---
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 Gender Identity Not on file Sexual Orientation Not on file Plan of Treatment Health Maintenance Due Date Last Done Comments Hepatitis C Virus (HCV) Screening 1965 Hepatitis B Immunization (1 of 3 - 19+ 3-dose series) 1984 Pap Smear 1986 Cervical Cancer Screening (CCS) 1995 HPV/Cotest 1995 Cologuard 2010 Colonoscopy 2010 Colorectal Cancer Screening 2010 Immunochemical Fecal Occult Blood 2010 Pneumococcal Immunization (50+ years) (1 of 1 - PCV) 2015 Zoster Immunization (1 of 2) 2015 SARS-COV-2 Immunization (3 - season) 2024 07/08/2021, 02/12/2021 Influenza Immunization (#1) 2025 10/0 11/2019, 10/19/2019, 08/08/2018, Additional history exists Respiratory Syncytial Virus (RSV) Immunization (Adult) (1 - 1-dose 75+ series) 2040 DTaP/Tdap/Td Immunization Discontinued 03/13/2018, 11/2007 TdaP Immunization Completed 03/13/2018, 11/14/2007 Human Papillomavirus (HPV) Immunization Aged Out No longer eligible based on patient's age to complete this topic Meningococcal Immunization (ACWY) Aged Out No longer eligible based on patient's age to complete this topic Rotavirus Immunization Aged Out No lo nger eligible based on patient's age to complete this topic Insurance [employer] on file [employer] on file
--- OUTSIDE RECORDS SUMMARY | 2025-07-04 08:23 | XMS_ITS | Encounter Summary ---
Author Organization [facility] Address [facility]ly [facility] [place] [address] Care Team Providers Care Stonemason Name Role Phone London Shahid MD Primary Care Provider [phone] Encounter Details Date Type Department Care Team (Late st Contact Info) Description 03/27/2019 Telephone [facility] [place] [address] [id number] Scanned, Documents Social History Tobacco Use Types [...] on filedocumented in this encounter Care Teams Stonemason Relationship Specialty Start Date End Date London Shahid MD PCP - General INTERNAL MEDICINE 09/28/18 documented as of this encounter
--- OUTSIDE RECORDS SUMMARY | 2025-07-04 08:23 | XMS_ITS | Clinical Summary ---
Author Organization [facility] Address [address] [place] [address] Care Team Providers Care Dba Developer Name Role Phone London hSahid MD Primary Care Provider [phone] Allergies Active Allergy Reactions Criticality Noted Date [...] (10/13/2018): Added automatically from request for surgery [id number] Family History Medical History Relation Comments Breast [...] 10:18 AM CDT Height 160 cm (5' 3) 07/26/2019 10:18 AM CDT Body Mass Index [...] patient's age to complete this topic Insurance [facility] Care Teams Dba Developer Relationship Specialty Start Date End Date London Shahid MD PCP - General INTERNAL MEDICINE 09/28/18
[2025-07-04 09:20] LABS: Hematocrit 39.2 % (37.0-47.0); Hemoglobin 12.8 g/dL (12.0-15.0); Mean Corpuscular HGB Conc 32.7 g/dl (32-36); Mean Corpuscular Hemoglobin 27.6 pg (26-34); Mean Corpuscular Volume 84.5 fl (80-100); Platelet Count Result 222 k/mm3 (150-375); Red Blood Count 4.64 M/mm3 (4.2-5.4); White Blood Count 5.7 K/mm3 (4.5-10.0)
[2025-07-04 09:37] LABS: Hemoglobin A1C 5.4 % (<5.7)
[2025-07-04 09:41] LABS: Iron 52 ug/dL (37-170)
[2025-07-04 09:41] LABS: Alanine Aminotransferase 20 U/L (6-35); Albumin Level 4.4 g/dL (3.5-5.1); Alkaline Phosphatase 81 U/L (38-126); Anion Gap 8 mmol/L (4-12); Aspartate Amino Transferase 25 U/L (14-36); Bilirubin,Total 0.8 mg/dL (0.2-1.3); Blood Urea Nitrogen 12 mg/dL (7-17); Calcium 9.5 mg/dL (8.4-10.2); Carbon Dioxide 26 mmol/L (22-30); Chloride 107 mmol/L (98-107); Cholesterol 251 mg/dL (0-200); Estimated Glomerular Filt Rate > 60; Glucose 90 mg/dL (65-110); HDL Direct 54 mg/dL; Potassium 3.9 mmol/L (3.4-5.0); Sodium 141 mmol/L (137-145); Total Protein 7.7 g/dL (6.3-8.2); Triglycerides 78 mg/dL (<150)
[2025-07-04 09:50] LABS: Percent Iron Saturation 13 % (20-50)
[2025-07-04 10:00] LABS: Free T4 Free Thyroxine 0.94 ng/dL (0.78-2.19)
[2025-07-04 10:19] LABS: Thyroid Stimulating Hormone 2.360 uIU/mL (0.465-4.680)
[2025-07-04 10:38] LABS: Vitamin B12 384.0 pg/mL (239-931)
[2025-07-13 10:08] LABS: Vit. B1, Whole Blood 60.6 nmol/L (66.5-200.0)
== END 2025-07-04 08:13 | disposition home or self-care (01) ==
PROVIDERS: PCP Internal Medicine; Visit Provider Internal Medicine Critical Care Medicine
DX: J98.59 Other diseases of mediastinum, not elsewhere classified (principal); M48.061 Spinal stenosis, lumbar region without neurogenic claudication; I10 Essential (primary) hypertension; J45.20 Mild intermittent asthma, uncomplicated; M17.0 Bilateral primary osteoarthritis of knee; E66.09 Other obesity due to excess calories; Z68.33 Body mass index [BMI] 33.0-33.9, adult; B02.23 Postherpetic polyneuropathy
CPT/HCPCS: 36415; 71250; 80053; 80061; 82306; 82607; 83036; 83540; 83550; 84207; 84425; 84439; 84443; 85027

== ENCOUNTER 2025-07-19 09:08 | Outpatient (CLI) | payer OTHER, SELFPAY ==
--- OUTSIDE RECORDS SUMMARY | 2025-07-19 09:16 | XMS_ITS | Clinical Summary ---
Author Organization [facility] [address] Address [address] [place] [address] Care Team Providers Care Medical Technician Name Role Phone Jerilyn Tucker MD Unavailable [phone] Oliver Doan MD Primary Care Provider [phone] Javon Hart MD Unavailable [phone] Juliana Duenas Unavailable [phone] Allergies Active Allergy Reactions Criticality Noted Date [...] 10/17/2024 Assessment & Plan (10/17/2024 3:26 PM DIGITAL STRATEGIST SENIOR MANAGER): - Contraception: hysterectomy - STI screening discussed. [...] 10/17/2024 Assessment & Plan (10/17/2024 3:39 PM DIGITAL STRATEGIST SENIOR MANAGER): We discussed symptoms of both perimenopause and [...] 06/21/2023 Assessment & Plan (09/21/2023 12:00 PM DIGITAL STRATEGIST SENIOR MANAGER): Discussed with the patient that her x-rays [...] (08/03/2023): Added automatically from request for surgery [id number] Added automatically from request for surgery [id number] Hypertension 01/01/2016 Pulmonary arterial hypertension 01/01/2016 Tobacco dependence syndrome 01/01/2016 Knee pain 04/23/2015 Encounters Date Type Department Care Team Description 06/13/2025 Orders Only [facility] Medicine Pulmonary [address] 8[address] [place] [address] [place] [address] Trung Woodson, ABRAHAM Chronic obstructive pulmonary disease with acute exacerbation (HCC) (Primary Dx); Mediastinal lymphadenopathy from Last 3 Months Immunizations Immunization Administration Dates Next Due Pfizer SARS-CoV-2 Monovalent Vaccination (12+ Yrs) PURPLE 02/12/2021 Surgical History Surgery Date Site/Laterality Comments MT TOTAL ABDOMINAL HYSTERECT W/WO RMVL TUBE OVARY Hysterectomy - (Added by TW Conv) MT OOPHORECTOMY PARTIAL/TOTA L UNI/BI Oophorectomy Unilateral Left Side - (Added by TW Conv) MT DELIVERY ONLY x2 CHOLECYSTECTOMY lap MULTIPLE TOOTH EXTRACTIONS COLONOSCOPY KNEE SURGERY 06/21/2023 Right LASIK 2019 HYSTERECTOMY 2007 SECTION 1988 and 1994 Medical History Medical History Date Comments Allergic rhinitis Chronic bronchitis (HCC) Asthma COPD (chronic obstructive pu lmonary disease) GERD (gastroesophageal reflux disease) pepcid daily and tums prn Sickle cell anemia (HCC) trait o nly Hypertension History of pulmonary embolism on eliquis Wears partial dentures top RLS (restless legs syndrome) Type 2 diabetes mellitus Metform in and weekly Ozempic, denies: CGM, insulin, pump [...] Counseling Given: Not Answered Social Connection and Isolation Panel Answer Date Recorded In a typical week, how many times do you talk on the phone with family, friends, or neighbors? More than three times a week 06/22/2023 How often do you get togethe r with friends or relatives? More than three times a week 06/22/2023 How often do you attend chur ch or congregation services? Never 06/22/2023 Do you belong to any clubs o r organizations such as christianity groups, unions, fraternal or athletic groups, or [...] place to sleep or slept in a long-term (including now)? No 06/22/2023 Personal Safety Answer Date Recorded Have you ever been in or are you currently in a harmful physical or emotional relationship or is someone making you feel afraid or unsafe? Denies 11/27/2024 Comments No Sex and Gender Information Value Date Recorded Sex Assigned at Not on file Legal Sex Female 1:17 AM DIGITAL STRATEGIST SENIOR MANAGER Gender Identity Not on file Sexual Orientation Not on file Occupation Industry Job Start Date Job End Date Disabled, used to work in [employer] Not on file Not on file Not [...] 37.2 C (99 F) 11/27/2024 11:58 AM DIGITAL STRATEGIST SENIOR MANAGER Respiratory Rate 18 01/23/2025 1:21 PM CDT Oxygen Saturation 97% 01/23/2025 1:21 PM CDT Inhaled Oxygen Concentration - - Weight 84.4 kg (186 lb 1.1 oz) 01/23/2025 1:21 P M CDT Height 160 cm (5' 3) 01/23/2025 1:21 PM CDT Body Mass Index [...] 07/08/2021, 02/12/2021 Hemoglobin A1C 10/05/2024 04/04/2024, 06/09/2023 Influenza Vaccine (#1) 2025 , 08/14/2020, 10/19/2019, Additional history exists Regular Well Visit/Exam 18-64 10/17/2025 10/17/2024 eGFR 04/11/2026 04/11/2025, 09/15, 06/22/2023, Additional history exists DTaP/Tdap/Td Vaccine (3 - Td or Tdap) 03/13/2028 03/13/2018, 11/14/2007 Colon Cancer Screening-Colonoscopy 11/27/2034 11/27/2024 Colon Cancer Screening-CT Colonography Discontinued 11/27/2024 Colon Cancer Screening-DNA Stool Discontinued 11/27/19 Colon Cancer Screening-FIT Discontinued 11/27/2024 Colon Cancer Screening-Sigmoidoscopy Discontinued 11/27/2024 Medical Devices Implanted Type Area Boiler Operator Device Identifier Shelf Expiration Date Model / Serial / Lot [employer] Simplex P Radiopaque Full Dose Cement Bone Sterile 6191-1-010 - [id number] Implanted:Qty: 2 on 06/21/2023 by Baljinder Sage DO at [facility] [employer] 09/13/2025 6191-1-010 / / [id number] [employer] Persona Cruciate Retaining Cemented Knee Right 7 Narrow Component [id number] - [id number] Implanted:Qty: 1 on 06/21/2023 by Baljinder Sage DO at [facility] [employer] [id number] 01/06/2033 [id number] / / [id number] [employer] [id number] Persona Natural Tibia Stem Knee Right 5d D Baseplate Tibial - [id number] Implanted:Qty: 1 on 06/21/2023 by Baljinder Sage DO at [facility] [employer] [id number] 03/29/2033 [id number] / / [id number] Explanted Type Area Boiler Operator Device Identifier Shelf Expiration Date Model / Serial / Lot [employer] Persona 10mm Knee Right 6-7 C-D Insert Articular Vivacit-E [id number] - [id number] Explanted:Qty: 1 on 06/21/2023 at [facility] [employer] [id number] 11/30/2027 [id number] / / [id number] Procedures Procedure Name Priority Date/Time Associated Diagnosis Comments EGFR Routine 04/11/2025 10:47 AM CDT Vasomotor symptoms due to menopause COLONOSCOPY 11/27/2024 12:29 PM DIGITAL STRATEGIST SENIOR MANAGER HEMOGLOBIN A1C Routine 04/04/2024 11:26 AM CDT Paresthesia of skin from Last 3 Months or Most Recently Relevant to Health Maintenance Results * eGFR (04/11/2025 10:47 AM CDT) eGFR 85 >=60 mL/min/1. 73 m2 Comment: Interpretive Data [...] interpretive data was last reviewed 2021. Blood 04/11/2025 10:4 7 AM CDT 04/11/2025 10:47 AM CDT us Marti Ayala MD LAB BLOOD ORDERABLES Guera matamoros Result [facility] [address] Department [place] [address] * Colonoscopy (11/27/2024 12:29 PM DIGITAL STRATEGIST SENIOR MANAGER) Anatomical Region Laterality Modality Other Narrative Procedure Note Jairo Larry MD - 11/27/2024 12:29 PM CST [facility] Endoscopy Lab Patient Name: Dolly Lucas Procedure Date: 11/27/2024 12:29 PM Date of : 1965 Admit Type: Outpatient Age: 58 Gender: Female Note Status: Finalized Attending MD: Jairo Larry M.D. Procedure Date: 11/27/2024 Procedure: Colonoscopy Indications: Screening for colorectal malignant neoplasm Providers: Jairo Larry M.D., Roxi Sullivan CRNA (Anesthesia Staff), Fay Squires RN, Jakob, Rod Welder Referring MD: Oliver Doan M.D. Medicines: Monitored [...] years forsurveillance. Procedure Code(s): --- Professional --- 50732, Colonoscopy, flexible; with biopsy, singleor multiple Diagnosis Code(s): --- Professional --- K57.30, Diverticulosis of large intestine without perforation or abscess without bleeding D12.4, Benign neoplasm of descending colon Z12.11, Encounter for screening for malignantneoplasm of colon CPT copyright 2020 [employer]. All rights reserved. The codes documented in this report are preliminary and upon cyber systems engineer reviewmay be revised to meet current compliance requirements. Dr. Jairo Larry MD Jairo Larry M.D. 11/27/2024 1:00:33 PM This report has been electronically signed by the physician. Number of Addenda: 0 Note Initiated On: 11/27/2024 12:29 PM us Jairo Larry MD ENDOSCOPY PROCEDURES Edited Resu lt - Final * Hemoglobin A1c (04/04/2024 11:26 AM CDT) Hgb A1C 5.6 4.0 - 5.6 % Estimated Average Glucose 114 mg/dL ANNE MUNOZ Comment: The ADA recommends reporting an estimated Average Glucose (eAG) with all Hemoglobin A1c results using the equation derived from a study of 507 normal and diabetic adults. Minority populations were underrepresented and children were not included. (Diabetes Care 31:8599-6909, 2008). The eAG is not equivalent to a fasting glucose. Blood 04/04/2024 11:2 6 AM CDT 04/04/2024 12:32 PM CDT us Jose Logan MD LAB BLOOD ORDERABLES Final Resul t ANNE [address] [facility] [facility] [address] Department [place] [address] from Last 3 Months or Most Recently Relevant to Health Maintenance Insurance [facility] Advance Directives For more information, please contact: [phone] * Full Code (Latest Code Status on File) Date Activated Date Inactivated Comments 06/21/2023 11:05 AM 06/23/2023 7:09 PM Care Teams Medical Technician Relationship Specialty Start Date End Date Oliver Doan MD [address] [place] [address] PCP - General Internal Medicine 06/01/23 Jerilyn Tucker MD [address] [address] Consulting Physician Critical Care Med 05/26/23 Javon Hart MD [address] [place] [address] Consulting Physician Pulmonary Disease 06/09/23 Juliana Duenas PA [address] [address] Orthopedic Surgery 06/21/23
--- OUTSIDE RECORDS SUMMARY | 2025-07-19 09:16 | XMS_ITS | Clinical Summary ---
Author Organization [facility] Address [address] [place] [address] Care Team Providers Care Compensation Expert Name Role Phone Unavailable Primary Care Provider Unavailabl e Social History Tobacco Use Types Packs/Day Years Used Date Smoking Tobacco: Never Assessed Comments Unknown Sex and Gender Information Value Date Recorded Sex Assigned at Not on file Legal Sex Female 9:05 AM WHISTLE PUNK Gender Identity Not on file Sexual Orientation [...]
--- OUTSIDE RECORDS SUMMARY | 2025-07-19 09:16 | XMS_ITS | Encounter Summary ---
Author Organization [facility] Address [address] [place] [address] Phone Care Team Providers Care Hand Alterations Tailor Name Role Phone Oliver Doan MD Primary Care Provider [phone] Jerilyn Tucker MD Unavailable [phone] Oliver Doan MD Primary Care Provider [phone] Javon Hart MD Unavailable [phone] Juliana Duenas Unavailable [phone] Encounter Details Date Type Department Care Team [...] on file Legal Sex Female 1:17 AM PAYROLL PROFESSIONAL Gender Identity Not on file Sexual Orientation [...] under hospitalized outside [place] when it was no. Resolved. 06/09/2023 06/09/2023 06/10/2023 11:15 AM CDT documented as of this encounter Care Teams Hand Alterations Tailor Relationship Specialty Start Date End Date Oliver Doan MD [address] [place] [address] PCP - General Internal Medicine 05/18/20 05/25/23 Oliver Doan MD [address] [place] [address] PCP - General Internal Medicine 06/01/23 Jerilyn Tucker MD [address] [address] Consulting Physician Critical Care Med 05/26/23 Javon Hart MD [address] [address] Consulting Physician Pulmonary Disease 06/09/23 Juliana Duenas PA [address] [address] Orthopedic Surgery 06/21/23 documented as of this encounter
--- NOTE | 2025-07-19 10:53 | WPDSIXMINUTE ---
Six Minute Walk Procedure Procedure Performed Pulmonary Stress Test (6 min walk) Six Minute Walk Six Minute Walk: This is a 6 minute walk test. The test was performed and interpreted in accordance with the 2014 ERS/ATS task force guidelines. Findings: The patient's resting room air oxygen saturation measured by pulse oximetry was 99%, the heart rate was 87 bpm, and the modified Zach dyspnea score was 3. Patient ambulated for 244 meters and oxygen saturation remained 97%. At the end of the study the heart rate was 100 bpm and the modified Zach dyspnea score was 7. The patient did not qualify for supplemental oxygen at rest or with ambulation. There are no prior studies for comparison.
--- NOTE | 2025-07-19 10:54 | WPDPFTINT ---
PFT Procedure Performed PFT Procedure Performed Spirometry with Pre/Post Bronchodilator Plethysmography (Lung Vol) Diffusing Cap (DLCO) Flow Vol Loop PFT Interpretation This is a pulmonary function test with pre and post-bronchodilator spirometry, plethysmography and diffusing capacity. The test was performed and results interpreted in accordance with the 2019 and 2005 ATS/ERS Task Force guidelines respectively using the Global Lung Function Initiative-2012 reference equations. Patient demonstrated good effort and cooperation. Reproducibility criteria were met. The quality of the pre bronchodilator spirometry maneuver was Grade A and post bronchodilator spirometry maneuver was Grade B. Findings: Spirometry: The contour the inspiratory and expiratory flow tracing are normal. The pre bronchodilator FVC is 2.02 L, 77% predicted. The pre bronchodilator FEV1 is 1.55 L, 73% predicted. The pre bronchodilator FEV1: FVC ratio is 76%. The post bronchodilator FVC is 2.03 L, representing no change. The post bronchodilator FEV1 is 1.59 L, representing a 3% increase. The post bronchodilator FEV1: FVC ratio is 79%. Plethysmography: The total lung capacity is 3.62 L, 84% predicted. The functional residual capacity is 2.05 L, 79% predicted. The residual volume is 1.45 L, 81% predicted. Diffusing capacity: The diffusing capacity unadjusted for hemoglobin and carboxyhemoglobin is 15.7, 74% predicted. The diffusing capacity adjusted for alveolar volume is 4.87, 108% predicted. In comparison to previous pulmonary function testing on 07/01/2020, the post bronchodilator FVC is unchanged from 2.03 L to 2.03 L. The post bronchodilator FEV1 is unchanged from 1.60 L to 1.59 L. The total lung capacity is unchanged from 3.68 L to 3.62 L. The functional residual capacity is unchanged from 2.18 L to 2.05 L. The residual volume is unchanged from 1.57 L to 1.45 L. The diffusing capacity unadjusted for hemoglobin and carboxyhemoglobin is unchanged from 16.1 to 15.7. The diffusing capacity adjusted for alveolar volume is decreased from 5.87 to 4.87. Impression: The spirometry is normal without evidence of an obstructive abnormality. There is no significant improvement after inhaling a single dose of albuterol. The lung volumes are normal. The diffusing capacity is normal. In comparison to previous pulmonary function testing on 07/01/2020, there has been no significant change in the FVC, FEV1, total lung capacity, functional residual capacity, residual volume or diffusing capacity. Clinical correlation is recommended.
== END 2025-07-19 09:09 | disposition home or self-care (01) ==
LOC: ANHPFT 09:09
PROVIDERS: PCP Internal Medicine; Visit Provider Internal Medicine
DX: R06.02 Shortness of breath (principal)
CPT/HCPCS: 94060; 94618; 94726; 94729

== ENCOUNTER 2025-08-26 11:55 | Outpatient (CLI) | payer OTHER, SELFPAY ==
--- NOTE | ~2025-08-26 | XR_ITS ---
XR thoracic spine 3V Indication: Aches; Generalized pain X 3 YRS Comparison: None Findings: The vertebral heights are intact. No fracture or subluxation. The disc heights are intact. Soft tissues unremarkable Impression: No acute abnormality. Reviewed, dictated and finalized at location P. Impression: No acute abnormality.
--- OUTSIDE RECORDS SUMMARY | 2025-08-26 13:09 | XMS_ITS | Clinical Summary ---
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
== END 2025-08-26 11:56 | disposition home or self-care (01) ==
PROVIDERS: PCP Internal Medicine; Visit Provider Pain Medicine Pain Medicine
DX: R52 Pain, unspecified (principal)
CPT/HCPCS: 72072